=== PATIENT | female | born 1945 | race Caucasian/White ===

== ENCOUNTER → 2018-03-08 10:15 | Outpatient (CLI) | payer MEDICARE, SELFPAY ==
--- NOTE | 2018-03-08 10:18 | BI_ITS ---
MAMMOGRAPHY - BILATERAL SCREENING REASON FOR EXAM: Female, 72 years old. Routine annual screening examination. PERTINENT HISTORY: Personal history of breast cancer. Prior left lumpectomy and radiation therapy. Mother with breast cancer. TECHNIQUE: Digital bilateral breast angeline (3D mammographic acquisition) in the CC and MLO projections. 2-D mediolateral oblique (MLO) and craniocaudad (CC) views of both breasts were obtained. CAD: Full Field Digital Mammography with Computer Added Detection was performed. COMPARISON: Comparison is made with prior study dated March 07, 2017 and March 04, 2016. FINDINGS: Breast Composition: There are scattered areas of fibroglandular density. There are no dominant masses or suspicious calcifications. Stable changes compatible with prior lumpectomy in the deep upper lateral portion of the left breast. Stable small bilateral axillary lymph nodes. No other significant abnormalities are identified. There has been no significant change since the prior study. BI/SCREENING MAMM (CAD), BILAT IMPRESSION: Stable bilateral screening mammogram. Yearly follow-up mammogram recommended. (A) ASSESSMENT CATEGORY: BIRADS Category 2: Benign. A letter regarding these results will be sent to the patient by the facility within 30 days. Approximately 10% of breast cancers are not detected by mammography. A normal mammogram should not delay biopsy of a clinically suspicious abnormality. [id number] Electronically Signed: Chapito Zurita MD at 13:27 EST Tel [phone], Service support ,
== END ==
PROVIDERS: Family Provider Family Medicine; PCP Family Medicine; Referring Provider Internal Medicine Medical Oncology; Visit Provider Internal Medicine Medical Oncology
DX: Z12.31 Encounter for screening mammogram for malignant neoplasm of breast (principal); Z85.3 Personal history of malignant neoplasm of breast
CPT/HCPCS: 77063; 77067

== ENCOUNTER → 2018-08-29 10:18 | Outpatient (CLI) | payer MEDICARE, SELFPAY ==
[2018-03-15 13:20] VITALS: BMI 29.4
--- NOTE | 2018-08-29 10:29 | RAD_ITS ---
STUDY: X-RAY CHEST REASON FOR EXAM: Female, 72 years old. Rib pain TECHNIQUE: Frontal and lateral views of the chest. COMPARISON: None. FINDINGS: The lungs are clear and expanded. There is no demonstrated pleural abnormality. Normal size heart. Normal mediastinum and ashley. Normal visualized pulmonary arteries. There is atherosclerotic tortuosity of the aortic arch and descending thoracic aorta. There are diffuse degenerative changes of the visualized thoracic spine. Normal visualized ribs, clavicles, and shoulders. There is no demonstrated abnormality of the visualized soft tissue structures of the upper abdomen. RAD/Chest PA and Lateral IMPRESSION: No acute chest disease. Electronically Signed: Ki Bailey MD at 17:41 EDT , Service support ,
== END ==
PROVIDERS: Family Provider Family Medicine; PCP Family Medicine; Referring Provider Family Medicine; Visit Provider Family Medicine
DX: R07.81 Pleurodynia (principal)
CPT/HCPCS: 71046

== ENCOUNTER → 2019-01-05 13:43 | Outpatient (CLI) | payer MEDICARE, SELFPAY ==
[2018-03-15 13:20] VITALS: BMI 29.4
--- NOTE | 2019-01-05 13:47 | BI_ITS ---
MAMMOGRAPHY - UNILATERAL DIAGNOSTIC: LEFT BREAST REASON FOR EXAM: Female, 73 years old. Previous history of bilateral breast cancer in the superior lateral left breast. PERTINENT HISTORY: Previous breast cancer in the superior lateral left breast. TECHNIQUE: Digital examination. Mediolateral oblique (MLO) and craniocaudad (CC) views of the breast were obtained. CAD: Not performed COMPARISON: None. FINDINGS: Breast Composition: Scattered breast parenchyma There are no dominant masses. There is a dystrophic calcification with some minimal skin retraction noted involving the superior lateral aspect of the left breast probably due to the patient's prior lumpectomy and radiation therapy. This was noted previously on the prior study obtained on 03/08/2018 is unchanged. The patient describes a palpable density in the superior lateral left breast and a left breast ultrasound will be helpful for further evaluation. BI/DIAG MAMM W/CAD, UNILAT IMPRESSION: 1. Stable dystrophic calcifications are noted involving the superior lateral aspect the left breast due to the patient's prior lumpectomy. 2. A palpable density is noted in the superior lateral left breast and a left breast ultrasound will be performed for additional evaluation. ASSESSMENT CATEGORY: FINAL ASSESSMENT: BI-RAD CATEGORY 0 INCOMPLETE: (NEEDS ADDITIONAL IMAGINING EVALUATION) FOLLOW-UP RECOMMENDATION: Approximately 10% of breast cancers are not detected by mammography. A normal mammogram should not delay biopsy of a clinically suspicious abnormality. Electronically Signed: Aubrey Piter, at 16:38 EDT Tel , Service support ,
--- NOTE | 2019-01-05 13:47 | US_ITS ---
STUDY: ULTRASOUND BREAST - LEFT REASON FOR EXAM: Female, 73 years old. TECHNIQUE: Axial and longitudinal images of the LEFT breast were performed with a high resolution ultrasound transducer. COMPARISON: Recent mammogram obtained earlier on 01/05/2019 FINDINGS: LEFT Breast: There is a lesion in the superior lateral quadrant. The lesion measures 3.27 cm in size. Clock notation: 2 o'clock position. Distance from nipple: 12 cm. This lesion is biconvex and has clear fluid echogenicity and most likely represents a small seroma adjacent to the posterior wall of the left breast near the site of the previous lumpectomy. No other abnormal masses or lesions are seen. US/Breast Limited Unilateral IMPRESSION: A small seroma is noted adjacent to the superior lateral left chest wall. ASSESSMENT CATEGORY: FINAL ASSESSMENT: BI-RAD CATEGORY II (BENIGN FINDING) YEARLY MAMMOGRAPHY RECOMMENDED Electronically Signed: Aubrey Dumas, at 16:41 EDT Tel , Service support ,
== END ==
PROVIDERS: Family Provider Family Medicine; PCP Family Medicine; Referring Provider Family Medicine; Visit Provider Family Medicine
DX: N63.23 Unspecified lump in the left breast, lower outer quadrant (principal); Z85.3 Personal history of malignant neoplasm of breast
CPT/HCPCS: 76642; 77061; 77065; G0279

== ENCOUNTER → 2019-03-09 10:13 | Outpatient (CLI) | payer MEDICARE, SELFPAY ==
[2018-03-15 13:20] VITALS: BMI 29.4
--- NOTE | 2019-03-09 10:33 | BI_ITS ---
MAMMOGRAPHY - BILATERAL SCREENING REASON FOR EXAM: Female, 73 years old. Routine annual screening examination. PERTINENT HISTORY: Personal history of breast cancer. Prior left lumpectomy with radiation therapy. Mother with breast cancer. TECHNIQUE: Digital bilateral breast gaston (3D mammographic acquisition) in the CC and MLO projections. 2-D mediolateral oblique (MLO) and craniocaudad (CC) views of both breasts were obtained. CAD: Full Field Digital Mammography with Computer Added Detection was performed. COMPARISON: Comparison is made with prior study March 08, 2018 and March 07, 2017. FINDINGS: Breast Composition: There are scattered areas of fibroglandular density. There are no dominant masses or suspicious calcifications. The patient is status post lumpectomy with post surgical changes and deformity of the breast and in the upper outer quadrant of the left breast. This is unchanged. No other significant abnormalities are identified. There has been no significant change since the prior study. BI/SCREEN MAMM (CAD) W/[place] BILAT IMPRESSION: Stable bilateral screening mammogram. Yearly follow-up mammogram recommended. (A) ASSESSMENT CATEGORY: BIRADS Category 2: Benign. A letter regarding these results will be sent to the patient by the facility within 30 days. Approximately 10% of breast cancers are not detected by mammography. A normal mammogram should not delay biopsy of a clinically suspicious abnormality. [id number] Electronically Signed: Chapito Zurita, at 12:50 EST , Service support ,
== END ==
PROVIDERS: Family Provider Family Medicine; PCP Family Medicine; Referring Provider Internal Medicine Medical Oncology; Visit Provider Internal Medicine Medical Oncology
DX: Z12.31 Encounter for screening mammogram for malignant neoplasm of breast (principal); Z85.3 Personal history of malignant neoplasm of breast
CPT/HCPCS: 77063; 77067

== ENCOUNTER 2019-06-06 20:01 | Inpatient (IN) | payer MEDICARE, MEDICAID, SELFPAY ==
[2019-03-13 14:05] VITALS: BMI 30.1
[2019-06-06] VITALS (8 sets, daily range): BP systolic 149–181; BP diastolic 83–103; PULSE 72–99; RESP 14–19; TEMP 36.6–36.8; O2SAT 87–96; BMI 28.4
[2019-06-06] MEDS: 0.9% Normal Saline 1,000 ML 999 ML IV (20:28)
[2019-06-06] MEDS: MethylPREDNISolone 125 MG/2 ML Vial IV (20:29)
[2019-06-06 20:32] LABS: Absolute Lymphocyte Count 1.42 X10^3/uL (0.83-4.51); Absolute Neutrophil Count 5.2 X10^3/uL (2.0-7.7); Basophil# 0.02 X10^3/uL; Basophil% 0.3 % (0-1); Eosinophil# 0.13 X10^3/uL; Eosinophils% 1.7 % (0-5); Hematocrit 40.9 % (37-47); Hemoglobin 13.8 g/dL (12.0-15.0); Lymphocyte # 1.42 X10^3/ul (4.0); Lymphocyte % 18.4 % (19-41); Mean Corp Hgb Conc 33.7 g/dL (32-36); Mean Corpuscular Hgb 31.4 pg (27.0-32.0); Mean Platelet Vol. 9.6 fl (6.2-12.0); Monocyte# 0.97 X10^3/uL; Monocyte% 12.6 % (0-10); NRBC Flagged by Analyzer 0 % (0-5); Neutrophil # 5.15 X10^3/uL (2.7-7.7); Neutrophil % 66.6 % (47-70); Platelet Count 291 K/mm3 (150-450); RBC Distribution Width CV 13.2 % (11.6-14.6); RBC Distribution Width SD 45.5 fl (35.1-43.9); White Blood Count 7.7 K/mm3 (4.4-11.0)
[2019-06-06] MEDS: Ipratropium/Albuterol Sulfate 3 ML AMPUL.NEB INHALATION (20:45)
[2019-06-06 20:49] LABS: Anion Gap 7 (5-15); BUN 20 mg/dL (7-18); BUN/Creat Ratio 17.2 RATIO (10-20); Calcium,Total 8.9 mg/dL (8.5-10.1); Chloride 109 mmol/L (98-107); Creatinine, Serum 1.16 mg/dL (0.55-1.02); EST Glomerular Filtration Rate 48 mL/min (>60); Est Glom Filt Rate - Afr Amer 59 mL/min (>60); Glucose 105 mg/dL (74-106); Potassium 4.1 mmol/L (3.5-5.1); Sodium Level 142 mmol/L (136-145)
--- NOTE | 2019-06-06 21:00 | RAD_ITS ---
STUDY: X-RAY CHEST REASON FOR EXAM: Female, 73 years old. PT REPORTS FLU-LIKE SX X 3 WEEKS, TONIGHT WORSENED SOB. TECHNIQUE: Frontal and lateral views of the chest. COMPARISON: 08/29/2018 FINDINGS: The lungs are clear and expanded. There is no demonstrated pleural abnormality. Normal size heart. Normal mediastinum and ashley. Normal visualized pulmonary arteries. Normal visualized aortic arch and descending thoracic aorta. Normal visualized thoracic spine. Normal visualized ribs, clavicles, and shoulders. There is no demonstrated abnormality of the visualized soft tissue structures of the upper abdomen. RAD/Chest PA and Lateral IMPRESSION: Normal x-ray examination of the chest. Electronically Signed: Yung Irvin MD at 21:24 EST Tel , Service support ,
--- NOTE | 2019-06-06 22:52 | CT_ITS ---
STUDY: CTA CHEST REASON FOR EXAM: Female, 73 years old. HYPOXIA, FLU LIKE SX X 3 WEEKS, INCREASED SOB TODAY RADIATION DOSAGE (If Supplied By Facility): CTDIvol = ( 13.19 ) mGy, DLP = ( 496.48 ) mGycm TECHNIQUE: The examination was performed with the intravenous administration of IV 100 ML ISOVUE 300. Post-processing of the angiographic images was performed, with multiplanar reformation and 3D reconstruction. Individualized dose optimization techniques were used for this CT. COMPARISON: 09/21/2016 FINDINGS: Normal enhancement of the main pulmonary artery and right and left pulmonary arteries. Normal enhancement of the bilateral peripheral pulmonary arteries. There is no demonstrated pulmonary embolism. Normal thoracic aorta and visualized great vessels. There is no demonstrated aortic dissection. Normal heart and pericardium. Normal mediastinum. Normal hilar regions. Normal visualized trachea and bronchi. Pulmonary emphysema. Normal pleura. Normal chest wall structures. There are degenerative changes of thoracic spine. Normal visualized upper abdomen. CT/CTA Chest W/WO Contrast IMPRESSION: Normal CTA chest examination, without a demonstrated pulmonary embolism or aortic dissection. Electronically Signed: Yung Irvin MD at 23:39 EST Tel , Service support ,
[2019-06-07] VITALS (11 sets, daily range): BP systolic 115–147; BP diastolic 57–100; PULSE 70–104; RESP 16–20; TEMP 36.5–36.9; O2SAT 94–98; BMI 28.0; BMI 29.9
--- NOTE | 2019-06-07 00:08 | HP.PCM_ITS ---
Problem List (1) COPD exacerbation Status: Acute (2) Tobacco abuse Status: Chronic History of Present Illness Date of Admission: 06/07/19 Chief Complaint: PRODUCTIVE COUGH The patient is a 73 year old F with a significant history of hypertension; depression and tobacco abuse who presented to the emergency department with 3- week history of progressively worsening productive cough of yellow sputum. Associated with symptoms is shortness of breath; chest pain; wheezing; orthopnea; paroxysmal nocturnal dyspnea; chills; rigors; anorexia; rhinorrhea and postnasal drip. Patient treated several home with [id number] Sudafed and chicken broth without any real relief. At the emergency department on room air her oxygen saturation was 87% so she was put on supplemental nasal cannula. Chest CTA was remarkable for pulmonary emphysema. Past Medical History Past Medical History (Chronic Problems): Chronic Problems (Last Reviewed 06/07/19 @ 00:[address] Noel Sanchez MD) Tobacco abuse (Chronic) Osteopenia (Chronic) Personal history of malignant neoplasm of breast (Chronic) History of left breast cancer (Chronic) Osteoarthritis (Chronic) Medical History: Medical History (Last Reviewed 06/07/19 @ 00:[address] Noel Sanchez MD) Arthritis M19.90 Bladder incontinence R32 Cervical cancer Depression F32.9 GERD (gastroesophageal reflux disease) K21.9 Hyperlipidemia E78.5 IBS (irritable bowel syndrome) Skin cancer C44.90 Vitamin D deficiency E55.9 Hypertension I10 Allergies ibuprofen Adverse Reaction (Verified 06/06/19 20:01) Nausea/Vom/Diarrhea Home Medications: Ambulatory Orders Medication Instructions Recorded Citalopram [Celexa] 20 mg PO QHS 03/22/14 Lisinopril [Zestril] 10 mg PO DAILY 03/22/14 Vitamin D 125 unit PO DAILY 09/12/14 Gabapentin [Neurontin] 300 mg PO BIDCM 03/10/15 Ranitidine HCl [Zantac 75] 150 mg PO Q12H 03/10/15 Surgical History: Surgical History (Last Reviewed 06/07/19 @ 00:[address] Noel Sanchez MD) H/O: hysterectomy Z90.710 History of knee replacement Z96.659 History of lumpectomy Z98.890 S/P cholecystectomy Z90.49 Surgical History: total knee arthroplasty Lives: Roommate Smoking Status: Current every day smoker Tobacco Use: Cigarettes - *Family History Maternal Family History: Family History (Last Reviewed 06/07/19 @ 00:[address] Noel Sanchez MD) Father Emphysema Heart disease Mother Seizures Breast cancer Review of Systems Constitutional: Reports: Anorexia, Chills. Denies: Fever, Weight Change HEENT: Denies: Head Aches, Sinus Congestion, Sinus Drainage Cardiovascular: Reports: Chest Pain. Denies: Palpitations Respiratory: Reports: Cough, Shortness of Breath, Sputum production, Wheezing Gastrointestinal: Denies: Abdominal Pain, Nausea, Vomiting Genitourinary: Denies: Dysuria Musculoskeletal: Denies: Joint Pain, Joint Tenderness Skin: Denies: Rash, Wounds Neurological: Denies: Numbness, Tingling, Focal weakness Psychiatric: Denies: Anxiety, Depression, Homicidal Ideations, Suicidal Ideations Hematologic/ Lymphatic: Denies: Easy Bruising, Easy Bleeding VTE Information - Inpt Only VTE Present on Admission: No VTE Mechan Device Prophylaxis: None VTE Pharm Prophylaxis ordered?: Yes Patient Problems: Active and Suspected Problems (Last Reviewed 06/07/19 @ 00:[address] Noel Sanchez MD) COPD exacerbation (Acute) - Physical Exam Vitals/I&O's: Vital Signs Temp Pulse Resp BP Pulse Ox 97.8 F 99 16 157/103 H 95 06/06/19 23:58 06/06/19 23:58 06/06/19 23:58 06/06/19 23:58 06/06/19 23:58 Oxygen Flow Rate (L/min) 2 Oxygen Delivery Method Nasal Cannula Weight: 72.91 kg Body Mass Index (BMI) 28.4 Intake and Output for Last 24 Hours 06/05/19 06/06/19 06/07/19 23:59 23:59 23:59 Intake Total 1000 / 1000 Balance 1000 / 1000 General: Alert, Oriented x3, Cooperative HEENT: Atraumatic, PERRLA, EOMI, Normocephalic Neck: Supple, No JVD, Negative Carotid Bruits Lungs: Clear to auscultation, Normal air movement Cardiovascular: Regular rate, Normal S1, Normal S2, No murmurs Abdomen: Bowel Sounds Present, Soft, Non Tender Extremities: No edema, Capillary Refill Less than 3 Seconds Skin: No rashes, No breakdown Musculoskeletal: No Tenderness to Palpation of Joints or Extremities Neurological: Cranial nerves II-XII grossly intact Psych/Mental Status: Normal Affect, Appropriate Laboratory Results 06/06/19 20:20: WBC 7.7, RBC 4.40, Hgb 13.8, Hct 40.9, MCV 93.0, MCH 31.4, MCHC 33.7, RDW Std Deviation 45.5 H, RDW Coeff of Nahed 13.2, Plt Count 291, MPV 9.6, Immature Gran % (Auto) 0.400, Neut % (Auto) 66.6, Lymph % (Auto) 18.4 L, [place] % (Auto) 12.6 H, Eos % (Auto) 1.7, Baso % (Auto) 0.3, Absolute Neuts (auto) 5.2, Absolute Lymphs (auto) 1.42, Nucleated RBC % 0 06/06/19 20:20: Sodium 142, Potassium 4.1, Chloride 109 H, Carbon Dioxide 26.0, Anion Gap 7, BUN 20 H, Creatinine 1.16 H, Estim Creat Clear Calc 35.20, Est GFR (MDRD) Af Amer 59 L, Est GFR (MDRD) Non-Af 48 L, BUN/Creatinine Ratio 17.2, Glucose 105, Calcium 8.9 06/06/19 20:20: Troponin I < 0.015 Assessment/Plan All Active Problems (Last Reviewed 06/07/19 @ 00:[address] Noel Sanchez MD) COPD exacerbation (Acute) The patient is a 73 year old F with a significant history of hypertension; depression and tobacco abuse who presented to the emergency department with 3- week history of progressively worsening productive cough of yellow sputum; shortness of breath; chest pain; wheezing; orthopnea; paroxysmal nocturnal dyspnea; rhinorrhea and postnasal drip consistent with likely COPD exacerbation and viral syndrome. COPD exacerbation and viral syndrome Received Solu-Medrol emergency department. Continue patient on Solu-Medrol . Solu-Medrol was started at the emergency department; continued. She received breathing treatment at the emergency department. DuoNeb continued. PRN albuterol continued. Mucinex ordered. Flonase ordered. We will get rapid influenza screen. Hypertension On presentation blood pressure was not within goal Lisinopril continued PRN hydralazine ordered. Trend blood pressure and adjust blood pressure medication Neuropathy Gabapentin continued Depression Celexa continued GERD On H2 blockers; continued. Vitamin D deficiency Vitamin D continued Tobacco abuse Patient began smoking at the age of 13. She tried Chantix in the past with good results. However because she was gaining weight she resumed smoking Patient is refusing nicotine patch. Counseled. DVT prophylaxis Subcutaneous Lovenox Code Visit Inpatient E&M: 16477 Init Hosp L3
--- NOTE | 2019-06-07 01:32 | ED.DCSUM_ITS ---
- ER Visit Summary Date of Service: 06/07/19 Chief Complaint: Cough History of Present Illness: The patient is a [address] Pichardo. She reports she has a cough that began 2 weeks ago. Is productive yellow sputum without blood. She denies any fever. She has had chills. Patient reports that she has shortness of breath. Is moderate currently and severe at worst. It is increased with coughing or walking. Patient denies a history of COPD. However, she reports that she has smoked for the past 60 years. She is never used an inhaler. She is not on home O2. Review of systems is otherwise negative. Physical Examination: Vitals: 98.0, 181/84, 72, 14, 87% room air which is hypoxic. General: Well-nourished and well-developed. Head: Normocephalic atraumatic. Neck: Supple, no lymphadenopathy. No JVD. Nontender. Cardiovascular: Regular rate and rhythm. No murmurs. Respiratory: No respiratory distress. Mild wheezing bilaterally with decreased air movement. Abdominal: Soft, nontender, nondistended, normal bowel sounds. No guarding, rebound, or peritoneal signs. Back: Nontender. Extremities: Nontender, no edema. Skin: Normal color, no rash. Neurologic: Alert and oriented ?3. Cranial nerves II through XII are intact. Normal strength and sensation. Psych: Normal affect. Test Results: CBC shows lymphocytes of 18 monocytes of 13. Chem-7 shows a chloride of 109, BUN 20, creatinine 1.16. Clinical Impression(s) from Imaging Studies Chest X-Ray 06/06/19 21:00 IMPRESSION: Normal x-ray examination of the chest. Electronically Signed: Yung Irvin MD at 21:24 EST Tel , Service support , Chest CTA 06/06/19 22:52 IMPRESSION: Normal CTA chest examination, without a demonstrated pulmonary embolism or aortic dissection. Electronically Signed: Yung Irvin MD at 23:39 EST Tel , Service support , Emergency Department Course and Treatment: Patient was given albuterol Atrovent aerosols. She is given Solu-Medrol and Zithromax IV. She is hypoxic at rest. Pulse ox is in the mid 90s on 2 L nasal cannula. She will require admission. Treatment Plan: Patient was discussed with Dr. Sanchez. She will be admitted to the hospital for further evaluation and treatment. Disposition: Admitted in improved condition. Impression: 1. COPD exacerbation. 2. Hypoxia. This note was generated with [employer] dictation software. It may contain incorrect words, spelling, and punctuation that were not noted in review of the chart prior to signing ED Disposition - Plan for ED Patient: Disposition: Acute Care Hospital [facility]
[2019-06-07] MEDS: guaiFENesin 1,200 MG Tablet 1200 MG PO ×3 (03:22→21:10)
[2019-06-07] MEDS: Fluticasone 0.05% 1 SPRAY NASAL.SRY 2 SPRAY NASAL (03:24)
[2019-06-07 06:18] LABS: Absolute Lymphocyte Count 0.32 X10^3/uL (0.83-4.51); Absolute Neutrophil Count 4.2 X10^3/uL (2.0-7.7); Basophil# 0.01 X10^3/uL; Basophil% 0.2 % (0-1); Hematocrit 40.1 % (37-47); Hemoglobin 13.2 g/dL (12.0-15.0); Lymphocyte # 0.32 X10^3/ul (4.0); Mean Corp Hgb Conc 32.9 g/dL (32-36); Mean Corpuscular Hgb 30.6 pg (27.0-32.0); Mean Corpuscular Volume 92.8 fL (81-99); Mean Platelet Vol. 9.6 fl (6.2-12.0); Monocyte# 0.05 X10^3/uL; Monocyte% 1.1 % (0-10); NRBC Flagged by Analyzer 0 % (0-5); Neutrophil # 4.19 X10^3/uL (2.7-7.7); Neutrophil % 91.5 % (47-70); POSITIVE DIFFERENTIAL YES; Platelet Count 280 K/mm3 (150-450); RBC Distribution Width CV 13.2 % (11.6-14.6); RBC Distribution Width SD 45.2 fl (35.1-43.9); Red Blood Count 4.32 M/mm3 (4.2-5.4); White Blood Count 4.6 K/mm3 (4.4-11.0)
[2019-06-07 06:24] LABS: Differential Indicated SCAN CRITERIA MET
[2019-06-07 06:34] LABS: Anion Gap 7 (5-15); BUN 15 mg/dL (7-18); BUN/Creat Ratio 15.1 RATIO (10-20); Calcium,Total 8.5 mg/dL (8.5-10.1); Chloride 109 mmol/L (98-107); Creatinine, Serum 0.99 mg/dL (0.55-1.02); EST Glomerular Filtration Rate 58 mL/min (>60); Est Glom Filt Rate - Afr Amer 70 mL/min (>60); Estimated Creatinine Clearance 39.43 ml/min; Glucose 141 mg/dL (74-106); Potassium 3.8 mmol/L (3.5-5.1); Sodium Level 140 mmol/L (136-145)
[2019-06-07] MEDS: Ipratropium/Albuterol Sulfate 3 ML AMPUL.NEB INHALATION ×4 (07:13→18:40)
[2019-06-07] MEDS: Gabapentin 300 MG Capsule PO ×2 (09:06→18:12)
[2019-06-07] MEDS: Lisinopril 10 MG Tablet PO (09:06)
[2019-06-07] MEDS: Enoxaparin 40 MG/0.4 ML Syringe SC (09:06)
[2019-06-07] MEDS: Famotidine 20 MG Tablet PO ×2 (09:06→21:10)
--- NOTE | 2019-06-07 12:25 | CASEMGMT ---
RN CM YARN SPOOLER CM to room to meet with patient for initial transition planning/care coordination assessment. JARETT LIGHT introduced self and role at [facility]. Pt voices understanding and consents to assessment at this time. Pt resting in bed in no distress at this time. Pt is A/O at this time and answers all questions appropriately. Care providers, pharmacy, and demographics verified at this time. PCP: Dr Hicks Specialists: None Preferred Pharmacy: [facility] [place] Insurance: [employer]UST Prescription Benefit: Yes Living Will/HPOA: States does not have LW or HCPOA . Interested in more information and would like to talk with SW to complete paperwork. LNOK: 3 adult children. Son, Aden Silvestre, listed on demographics as next of kin. Asked pt if she would like additional people added but she declines at this time. Living Arrangements: Lives with a friend in ranch-style home w/basement. Stairs have rails on them and pt states she manages going up and down the stairs. Pt states she is independent w/ADL's. She and her friend share home mgmt tasks. Transportation: Pt states drives self and states no transportation concerns at this time. DME: States has the following DME: shower chair Pt states no need for further DME at this time. Does not have home O2. Given list of local DME companies in case she qualifies for Home O2 @ discharge. Pt states wishes to decide later on which DME company she would prefer. HHC/SNF: No history of either and denies needs. Pt wishes to return home and states has no concerns with going home at time of discharge. CM to follow for home oxygen needs and any further discharge planning/needs. Pt voices no further concerns/needs at this time. Advised pt to ask for CM if any further questions/concerns/needs arise. Voices understanding. PLAN: Home May need Ambulatory pulse ox testing completed prior to discharge SW consult for STEPHAN SOTOMAYOR RN, CM
--- NOTE | 2019-06-07 12:37 | PCM.HOSP.N ---
Hospitalist Note Patient seen and examined briefly today, she appears comfortable on nasal cannula oxygen, she has an expiratory wheezing over both lung conroy-this wheezing is not severe. Patient will remain on her current treatment and be reevaluated tomorrow, oxygen will be weaned if possible.
--- NOTE | 2019-06-07 12:55 | CASEMGMT ---
Social Work Met with pt to complete Advanced Directives. Pt hesitant to agree to complete, SWI gave pt option to complete or if pt just wanted more information on AD. Pt asked if SW could complete AD tomorrow, SW to revisit topic tomorrow 06/07. Mita Guillen, social work internal medicine nurse practitioner Rowena EMERSON [employer]IATOR [employer]TER
[2019-06-07] MEDS: 0.9% Saline Lock 10 ML Syringe IV ×2 (13:39→21:12)
[2019-06-07] MEDS: Citalopram 20 MG Tablet PO (21:10)
[2019-06-07] MEDS: MELATONIN 3 MG TABLET PO (21:15)
[2019-06-08 04:10] VITALS: BP 115/56; PULSE 77; RESP 19; TEMP 36.4; O2SAT 94
[2019-06-08] MEDS: 0.9% Saline Lock 10 ML Syringe IV (05:23)
[2019-06-08 07:28] VITALS: PULSE 73; RESP 16
[2019-06-08] MEDS: Ipratropium/Albuterol Sulfate 3 ML AMPUL.NEB INHALATION ×2 (07:28→11:11)
[2019-06-08] MEDS: guaiFENesin 1,200 MG Tablet 1200 MG PO (09:54)
[2019-06-08] MEDS: Famotidine 20 MG Tablet PO (09:54)
[2019-06-08] MEDS: Gabapentin 300 MG Capsule PO (09:54)
[2019-06-08] MEDS: Fluticasone 0.05% 1 SPRAY NASAL.SRY 2 SPRAY NASAL (09:55)
[2019-06-08] MEDS: Lisinopril 10 MG Tablet PO (09:55)
[2019-06-08 10:00] VITALS: O2SAT 94
[2019-06-08 10:10] VITALS: BP 124/71; PULSE 76; RESP 18; TEMP 36.7; O2SAT 94
[2019-06-08 10:55] VITALS: O2SAT 89; O2SAT 91
--- NOTE | 2019-06-08 10:55 | NURSING ---
Walking oxygen trial done. Spo2 91% on RA at rest and 89% while ambulating on RA. Dr. Pierce made aware via medidametricst. He will be coming up to talk to pt.
[2019-06-08 11:11] VITALS: PULSE 87; RESP 16
--- NOTE | 2019-06-08 11:34 | DCINST_ITS ---
- Discharge Diagnoses Current Active Problems: Current Active and Chronic Problems (Last Reviewed 06/07/19 @ 00:[address] Noel Sanchez MD) COPD exacerbation (Acute) You will use the following diet at home:: Regular Your food should be the consistency of: Regular Your liquids should be the consistency of: Regular/Thin Call your doctor if you observe: Fever of 101 or Higher, Shortness of breath, Dizziness, Fainting spells, Swelling in the ankles, Chest pain, Increased palpitations (irregular heartbeat) Allergies/Adverse Reactions: Allergies ibuprofen Adverse Reaction (Verified 06/06/19 20:01) Nausea/Vom/Diarrhea Medications to take at Discharge Citalopram [Celexa] 20 mg PO QHS 03/22/14 Lisinopril [Zestril] 10 mg PO DAILY 03/22/14 Vitamin D 125 unit PO DAILY 09/12/14 Gabapentin [Neurontin] 300 mg PO BIDCM 03/10/15 Ranitidine HCl [Zantac 75] 150 mg PO Q12H 03/10/15 Albuterol IH (ProAir) [Proair Hfa] 2 puff INHALATION Q4H PRN PRN #1 inhaler 06/08/19 Prednisone [Deltasone] 40 mg PO DAILY #14 tab 06/08/19 The following prescriptions were given: Prednisone [Deltasone] 40 mg PO DAILY #14 tab Transmission Status: Pending to [facility] Albuterol IH (ProAir) [Proair Hfa] 2 puff INHALATION Q4H PRN PRN #1 inhaler PRN Reason: Sob &/Or Wheezing Transmission Status: Pending to [facility] Primary Care Physician: Augusta Hicks DO [Primary Care Provider] - Please follow up with your Primary Care Physician in: 3-5 days Test Results: Test results from this visit will be discussed in further detail at your follow- up appointment, if applicable.
--- NOTE | 2019-06-08 11:50 | CASEMGMT ---
This RN CM to room to discuss discharge plan and pt states no need for any further therapy at this time. Pt states has been up independent in room and states no further concerns with going home at this time. Pt does not qualify for home oxygen at this time. Pt voices no further questions/concerns/needs at this time. Pt states ready for discharge and Desirae DENSON aware, voices understanding. SStaten JARETT CM
--- NOTE | 2019-06-08 13:48 | PCM.DC.SUM ---
Discharge Date and Diagnosis Date of Admission: 06/07/19 Date of Discharge: 06/08/19 - Secondary Discharge Diagnosis Chronic Problems (Last Reviewed 06/07/19 @ 00:[address] Noel Sanchez MD) Tobacco abuse (Chronic) Osteopenia (Chronic) Personal history of malignant neoplasm of breast (Chronic) History of left breast cancer (Chronic) Osteoarthritis (Chronic) Hospital Course and Treatment Imaging Results: CTA Chest: IMPRESSION: Normal CTA chest examination, without a demonstrated pulmonary embolism or aortic dissection. CXR: IMPRESSION: Normal x-ray examination of the chest. Consults: None Operations: None Procedures: None Summary of Care Provided: Per HPI: The patient is a 73 year old F with a significant history of hypertension; depression and tobacco abuse who presented to the emergency department with 3-week history of progressively worsening productive cough of yellow sputum. Associated with symptoms is shortness of breath; chest pain; wheezing; orthopnea; paroxysmal nocturnal dyspnea; chills; rigors; anorexia; rhinorrhea and postnasal drip. Patient treated several home with [id number] Sudafed and chicken broth without any real relief. At the emergency department on room air her oxygen saturation was 87% so she was put on supplemental nasal cannula. Chest CTA was remarkable for pulmonary emphysema. Hospital Course: 1. COPD exacerbation secondary to viral [id number] female with a history of mild COPD presented with shortness of breath as well as hypoxia at 87%. She was placed on nasal cannula for about 24 hours and was able to come off of it. She was started on Solu-Medrol as well as azithromycin and breathing treatments and she has done well. She was oxygenating in the mid 90s on room air and she had an ambulatory pulse ox and she only desaturated to 89%. I had a long discussion with her about the options of staying in the hospital 1 more day just to give her an extra day of improvement versus going home. She states that she understands the risks and would like to go home. I have reminded her that if she does get worse that she is to come back to the ER for further therapy. A CTA of her chest was done which did not show any pneumonia therefore her azithromycin was discontinued. She was sent home on 7 days of prednisone as well as an albuterol inhaler. 2. Her other medical diagnoses were evaluated and her home medications were continued where appropriate - Physical Exam Vitals/I&O's: Vital Signs Temp Pulse Resp BP Pulse Ox 98.0 F 87 16 124/71 H 91 06/08/19 10:10 06/08/19 11:11 06/08/19 11:11 06/08/19 10:10 06/08/19 10:55 Oxygen Flow Rate (L/min) 2 Oxygen Delivery Method Room Air Weight: 163 lb 12.855 oz Body Mass Index (BMI) 29.9 Intake and Output for Last 24 Hours 06/06/19 06/07/19 06/08/19 23:59 23:59 23:59 Intake Total 1000 / 1000 1230 / 1670 500 / 500 Balance 1000 / 1000 1230 / 1670 500 / 500 General: Alert, Oriented x3, Cooperative, No apparent distress HEENT: Atraumatic, PERRLA, EOMI, Normocephalic Oral: Moist Mucosa Neck: Supple, No JVD Lungs: Clear to auscultation, Normal air movement, No rhonchi, No wheeze, No rales, Diminished Cardiovascular: Regular rate, Regular Rhythm, Normal S1, Normal S2, No murmurs Abdomen: Soft, Non Tender, Non-Distended, No Hepato-splenomegaly Extremities: No edema, Capillary Refill Less than 3 Seconds Skin: No rashes, No breakdown Neurological: Neuro grossly intact, Sensory exam intact to light touch and pain Psych/Mental Status: Normal Affect, Appropriate Microbiology Past 72 Hours 06/07/19 03:35 Mucosa - Nasopharyngeal Influenza Types A,B Direct FA ([place]) - Final Call your doctor if you observe: Fever of 101 or Higher, Shortness of breath, Dizziness, Fainting spells, Swelling in the ankles, Chest pain, Increased palpitations (irregular heartbeat) Home Medications: Medications to take at Discharge Citalopram [Celexa] 20 mg PO QHS 03/22/14 Lisinopril [Zestril] 10 mg PO DAILY 03/22/14 Vitamin D 125 unit PO DAILY 09/12/14 Gabapentin [Neurontin] 300 mg PO BIDCM 03/10/15 Ranitidine HCl [Zantac 75] 150 mg PO Q12H 03/10/15 Albuterol IH (ProAir) [Proair Hfa] 2 puff INHALATION Q4H PRN PRN #1 inhaler 06/08/19 Prednisone [Deltasone] 40 mg PO DAILY #14 tab 06/08/19 Following Prescrptions Were Given to Patient: Prednisone [Deltasone] 40 mg PO DAILY #14 tab Transmission Status: Sent to [facility] Albuterol IH (ProAir) [Proair Hfa] 2 puff INHALATION Q4H PRN PRN #1 inhaler PRN Reason: Sob &/Or Wheezing Transmission Status: Sent to [facility] Primary Care Physician: Augusta Hicks DO [Primary Care Provider] - Please follow up with your Primary Care Physician in: 3-5 days Disposition: Home Minutes spent on discharge:: 35 Patient Condition:: Stable Medical Necessity - Tobacco Use Smoking Status: Current every day smoker Tobacco Use: Cigarettes Meaningful Use Info Meaningful Use Diagnoses (Choose all that apply): None applicable Inpatient E&M: 70883 Disch Hosp
== END 2019-06-08 11:59 | disposition home or self-care (01) | DRG 192 ==
LOC: ED 21:01 → PCU 06-07 00:35
PROVIDERS: Admitting Provider Hospitalist; Emergency Provider Emergency Medicine; PCP Family Medicine; Visit Provider Family Medicine
DX: J44.1 Chronic obstructive pulmonary disease with (acute) exacerbation (principal); B34.9 Viral infection, unspecified; R09.02 Hypoxemia; I10 Essential (primary) hypertension; M19.90 Unspecified osteoarthritis, unspecified site; R32 Unspecified urinary incontinence; E78.5 Hyperlipidemia, unspecified; K58.9 Irritable bowel syndrome, unspecified; G62.9 Polyneuropathy, unspecified; K21.9 Gastro-esophageal reflux disease without esophagitis; F32.9 Major depressive disorder, single episode, unspecified; F17.210 Nicotine dependence, cigarettes, uncomplicated; Z79.899 Other long term (current) drug therapy; Z85.3 Personal history of malignant neoplasm of breast; Z85.828 Personal history of other malignant neoplasm of skin; Z85.41 Personal history of malignant neoplasm of cervix uteri; Z92.3 Personal history of irradiation; Z96.659 Presence of unspecified artificial knee joint; Z90.710 Acquired absence of both cervix and uterus; Z90.49 Acquired absence of other specified parts of digestive tract
CPT/HCPCS: 36415; 71046; 71275; 80048; 84484; 85025; 87804; 94640; 97802; 99285; J7030; J7050; Q9967; A4216

== ENCOUNTER 2020-03-05 14:38 | Emergency (ER) | payer MEDICARE, MEDICAID, SELFPAY ==
[2019-06-07 01:06] VITALS: BMI 29.9
[2020-03-05 14:39] VITALS: BP 124/69; PULSE 91; RESP 17; TEMP 36.7; O2SAT 95; BMI 29.4
--- NOTE | 2020-03-05 15:01 | EKG12_ITS ---
Test Reason : Blood Pressure : / mmHG Vent. Rate : 072 BPM Atrial Rate : 072 BPM P-R Int : 156 ms QRS Dur : 118 ms QT Int : 424 ms P-R-T Axes : 044 -75 -03 degrees QTc Int : 464 ms Normal sinus rhythm Low voltage QRS Incomplete right bundle branch block Left anterior fascicular block Cannot rule out Inferior infarct (masked by fascicular block?) , age undetermined Possible Anterolateral infarct (cited on or before 18-MAR-2011) Abnormal ECG Confirmed by BRIAN ROOT, ANDER ([id number]), medical transcription editor KAIDEN FRANCIS ([id number]) on 03/07/2020 2:03:54 PM Referred By: [facility] Confirmed By:KANG TORRES MD
--- NOTE | 2020-03-05 15:07 | CT_ITS ---
STUDY: CT CERVICAL SPINE WITHOUT CONTRAST REASON FOR EXAM: Female, 74 years old. FELL THIS MORNING NOW IS HAVING DIZZINESS RADIATION DOSAGE (If Supplied By Facility): CTDIvol = ( 24.15 ) mGy, DLP = ( 523.29 ) mGycm TECHNIQUE: High resolution transaxial imaging was performed without contrast material. Sagittal and coronal images were reconstructed. Individualized dose optimization techniques were used for this CT. COMPARISON: None FINDINGS: Normal craniovertebral junction. There is hypertrophy of the transverse ligament of the atlas with mild posterior displacement of the superior and inferior longitudinal fibers of the cruciform ligament, producing minimal ventral thecal sac flattening, but without cervical cord impingement. There are mild degenerative changes in the anterior atlantoaxial articulation. Normal odontoid process. Normal cervical lordosis. Normal vertebral bodies and posterior osseous elements. C2-3: Normal endplates. Normal disc height and morphology. Normal central canal and intervertebral neuroforamina. C3-4: 2 mm retrolisthesis of C3 on C4 with a mild broad disc osteophyte complex produces mild spinal stenosis and mild bilateral neural foraminal stenosis. C4-5: 2 mm retrolisthesis of C4 on C5 with a mild broad disc osteophyte complex produces mild spinal stenosis and mild bilateral neural foraminal stenosis. C5-6: 2 mm retrolisthesis of C5 on C6 with a mild broad disc osteophyte complex produces mild spinal stenosis and mild bilateral neural foraminal stenosis. C6-7: Large peripherally calcified central disc extrusion (hard disc) produces severe spinal stenosis. No neural foraminal stenosis. C7-T1: Normal endplates. Normal disc height and morphology. Normal central canal and intervertebral neuroforamina. Normal visualized soft tissue structures. CT/Spine Cervical without Contras IMPRESSION: No acute fracture or subluxation. Electronically Signed: Mason Kumar MD at 16:18 EST Tel , Service support ,
--- NOTE | 2020-03-05 15:19 | ED.VISSUMM ---
- ER Visit Summary Date of Service: 03/05/20 Chief Complaint: Fall History of Present Illness: The patient is a 74 F presenting after fall. Patient states this happened this morning. She states she was walking her dog. She bent over and lost her balance and fell onto her right side. She does not believe she hit her head. She did not lose consciousness. She has a laceration to her right elbow. She complains of right elbow and right knee pain. She states she has been lightheaded with standing throughout the day. She denies vertigo. Denies syncope. Denies numbness or weakness. Denies headache. Denies chest pain or shortness of breath. Denies other complaints. Last tetanus is unknown. Physical Examination: Vitals are stable. Patient is afebrile. Alert no acute distress. HEENT exam is unremarkable. Neck is nontender Lungs are clear and equal bilaterally. Heart is regular rate and rhythm. Abdomen is soft nontender nondistended. Extremities 1.5 cm right elbow laceration with active full range of motion. Mild right anterior knee tenderness Skin is warm and dry. No focal neurologic deficit. Remainder of exam is unremarkable. Emergency Department Course and Treatment: Patient was given Tetanus IM. CT head shows no acute process. CT C-spine shows no fracture. Right hip x-ray, right knee x-ray showed no acute fracture. Right elbow x-ray shows soft tissue laceration, foreign body that is distal to the wound. EKG is sinus rhythm rate of 72 with no acute ischemic changes. CBC, chemistries unremarkable other than creatinine 1.4, similar to baseline. Troponin is negative. Orthostatics negative. She was given tetanus IM. Her dizziness has resolved. Laceration was repaired under sterile conditions. Anesthetized with lidocaine. Irrigated with saline. Wound was explored. 2, 4-0 simple sutures were placed. Patient tolerated this well. Advised wound care instructions. Advised to follow-up with her primary care physician. Advised return to the ED for worsening complaints. Disposition: Discharge home Impression: Right elbow laceration, right elbow contusion, right knee contusion, status post fall, laceration repair This note was generated with [employer] original [employer] dictation software. It may contain incorrect words, spelling, and punctuation that were not noted in review of the chart prior to signing ED Disposition - Plan for ED Patient: Referrals: Augusta Hicks DO [Primary Care Provider] -
[2020-03-05 15:30] LABS: Absolute Lymphocyte Count 1.36 X10^3/uL (0.83-4.51); Absolute Neutrophil Count 7.3 X10^3/uL (2.0-7.7); Basophil# 0.03 X10^3/uL; Basophil% 0.3 % (0-1); Eosinophil# 0.03 X10^3/uL; Eosinophils% 0.3 % (0-5); Hematocrit 44.7 % (37-47); Lymphocyte # 1.36 X10^3/ul (4.0); Lymphocyte % 14.3 % (19-41); Mean Corp Hgb Conc 31.3 g/dL (32-36); Mean Corpuscular Hgb 31.5 pg (27.0-32.0); Mean Corpuscular Volume 100.4 fL (81-99); Mean Platelet Vol. 9.6 fl (6.2-12.0); Monocyte# 0.77 X10^3/uL; Monocyte% 8.1 % (0-10); NRBC Flagged by Analyzer 0 % (0-5); Neutrophil % 76.8 % (47-70); Platelet Count 254 K/mm3 (150-450); RBC Distribution Width CV 13.2 % (11.6-14.6); RBC Distribution Width SD 49.8 fl (35.1-43.9); Red Blood Count 4.45 M/mm3 (4.2-5.4); White Blood Count 9.5 K/mm3 (4.4-11.0)
--- NOTE | 2020-03-05 15:40 | RAD_ITS ---
STUDY: X-RAY - RIGHT ELBOW REASON FOR EXAM: Female, 74 years old. PT REPORTS HAVING A FALL EARLY THIS MORNING. DENIES HEAD INJURY, C/O LAC TO RIGHT ELBOW, RIGHT ELBOW PAIN, RIGHT KNEE/ LEG PAIN, AND DIZZINESS SINCE THE FALL TECHNIQUE: 3 view(s) of the elbow. COMPARISON: None. FINDINGS: Normal visualized humerus, radius and ulna. Normal radiocapitellar and ulnotrochlear articulations. Soft tissue injury/laceration. There is a 4.2 mm rounded radiopacity in the soft tissues overlying the proximal shaft of the ulna. This most likely represents a radiopaque foreign body. RAD/Elbow min 3 Views IMPRESSION: Soft tissue laceration/injury with small radiopaque foreign body as described. Electronically Signed: Chapito Zurita, at 16:00 EST , Service support ,
--- NOTE | 2020-03-05 15:40 | RAD_ITS ---
STUDY: X-RAY - RIGHT KNEE REASON FOR EXAM: Female, 74 years old. FALL THIS AM; PAIN IN RT KNEE TECHNIQUE: 4 view(s) of the knee. COMPARISON: None. FINDINGS: Normal visualized distal femur. Normal visualized proximal tibia and fibula. Normal proximal tibiofibular articulation. There is moderate degenerative arthrosis of the medial femorotibial compartment with moderate joint space narrowing. There is moderate degenerative arthrosis of the lateral femorotibial compartment with moderate joint space narrowing. There is mild degenerative arthrosis of the patellofemoral articulation. There is a soft tissue prominence in the suprapatellar region suggesting a small volume joint effusion. The soft tissue structures are unremarkable. RAD/Knee 4 or More Views IMPRESSION: 1. No acute fracture or dislocation. 2. Moderate arthrosis with a small joint effusion Electronically Signed: Mason Kumar MD at 15:59 EST Tel , Service support ,
--- NOTE | 2020-03-05 15:40 | RAD_ITS ---
STUDY: X-RAY - PELVIS AND RIGHT HIP REASON FOR EXAM: Female, 74 years old. FALL THIS AM; PAIN IN RT LEG TECHNIQUE: 3 views of the pelvis and hip. COMPARISON: None. FINDINGS: There is a non-specific bowel gas pattern. Normal visualized soft tissue structures. Normal bilateral iliac wings, sacroiliac joints and visualized sacrum. Normal bilateral superior and inferior pubic rami. There are degenerative changes of the pubic symphysis with articular narrowing and sclerosis. Normal bilateral ischial tuberosities. Normal visualized femoral head. Normal acetabulum. There is moderate articular joint space narrowing of the hip. Calcific bursitis overlying the right greater trochanter. RAD/HIP, UNI W/ Pelvis 2-3 Views IMPRESSION: Degenerative changes. Calcific bursitis overlying the right greater trochanter. Electronically Signed: Chapito Zurita, at 16:00 EST , Service support ,
[2020-03-05 15:48] LABS: Anion Gap 4 (5-15); BUN 24 mg/dL (7-18); BUN/Creat Ratio 17.1 RATIO (10-20); Calcium,Total 9.1 mg/dL (8.5-10.1); Chloride 110 mmol/L (98-107); EST Glomerular Filtration Rate 39 mL/min (>60); Est Glom Filt Rate - Afr Amer 47 mL/min (>60); Estimated Creatinine Clearance 28.72 ml/min; Glucose 99 mg/dL (74-106); Potassium 4.3 mmol/L (3.5-5.1); Sodium Level 143 mmol/L (136-145)
--- NOTE | 2020-03-05 15:53 | CT_ITS ---
STUDY: CT BRAIN WITHOUT CONTRAST REASON FOR EXAM: Female, 74 years old. FELL THIS MORNING NOW IS HAVING DIZZINESS RADIATION DOSAGE (If Supplied By Facility): CTDIvol = ( 44.99 ) mGy, DLP = ( 779.24 ) mGycm TECHNIQUE: Transaxial CT imaging of the brain was performed without administration of intravenous contrast material. Individualized dose optimization techniques were used for this CT. COMPARISON: 03/18/2011 FINDINGS: Normal soft tissue structures. Normal calvarium. There is mild cerebral atrophy with widening of the extra-axial spaces and ventricular dilatation. There are areas of decreased attenuation within the white matter tracts of the supratentorial brain, consistent with microvascular disease changes. Normal basal ganglia and thalami. Normal brainstem. Normal cerebellum. There is no intracranial hemorrhage. There are no findings of an acute ischemic infarction. Normal visualized paranasal sinuses. CT/Brain/Head without Contrast IMPRESSION: Chronic involutional changes of the brain. Electronically Signed: Mason Kumar MD at 16:15 EST Tel , Service support ,
[2020-03-05] MEDS: Lidocaine 1% (20 ml mdv) 20 ML Vial INFILT (16:13)
[2020-03-05] MEDS: 0.9% Normal Saline 1,000 ML 999 ML IV (16:13)
[2020-03-05] MEDS: Diphth,Pertuss(Acell),Tet Vac 0.5 ML Vial IM (16:13)
--- NOTE | 2020-03-05 16:26 | RAD_ITS ---
STUDY: X-RAY - RIGHT ELBOW REASON FOR EXAM: Female, 74 years old. One lateral view per ER doctor to demonstrate location of foreign body in relation to olecranon process. TECHNIQUE: 1 view(s) of the elbow. COMPARISON: 03/05/2020 at 1548 FINDINGS: Normal visualized humerus, radius and ulna. Normal radiocapitellar and ulnotrochlear articulations. Subcutaneous emphysema posteriorly consistent with a known laceration. There are 2 small radiopaque foreign bodies posteriorly presumably within the laceration with a 4 mm body located 6.2 cm distal to the olecranon and a tiny body located 2.0 cm distal to the previously described body. RAD/Elbow 2 Views IMPRESSION: Suspect posterior laceration with 2 small radiopaque foreign bodies as described above. Electronically Signed: Mason Kumar MD at 16:52 EST Tel , Service support ,
[2020-03-05 17:52] VITALS: BP 133/82; BP 157/101; PULSE 67; PULSE 71; PULSE 73
--- NOTE | 2020-03-05 18:09 | ED.DEP ---
ED Disposition - Plan for ED Patient: Instructions: ED Mechanical Fall Referrals: Augusta Hicks DO [Primary Care Provider] -
== END 2020-03-05 18:20 | disposition home or self-care (01) ==
PROVIDERS: Emergency Provider Emergency Medicine; PCP Family Medicine
DX: S51.011A Laceration without foreign body of right elbow, initial encounter (principal); S80.01XA Contusion of right knee, initial encounter; W18.30XA Fall on same level, unspecified, initial encounter; Y93.K1 Activity, walking an animal; Y92.9 Unspecified place or not applicable; Y99.9 Unspecified external cause status; Z23 Encounter for immunization; Z79.899 Other long term (current) drug therapy
CPT/HCPCS: 12001; 70450; 72125; 73070; 73080; 73502; 73564; 80048; 84484; 85025; 90715; 93005; 99285; J7030; A4216

== ENCOUNTER → 2020-04-02 15:43 | Outpatient (CLI) | payer MEDICARE, MEDICAID, SELFPAY ==
[2019-06-07 01:06] VITALS: BMI 29.9
[2020-03-05 14:39] VITALS: BMI 29.4
--- NOTE | 2020-04-02 15:45 | BI_ITS ---
MAMMOGRAPHY - BILATERAL SCREENING REASON FOR EXAM: Female, 74 years old. Routine annual screening examination. PERTINENT HISTORY: Hemodialysis catheter TECHNIQUE: Digital bilateral breast gaston (3D mammographic acquisition) in the CC and MLO projections. 2-D mediolateral oblique (MLO) and craniocaudad (CC) views of both breasts were obtained. CAD: Full Field Digital Mammography with Computer Added Detection was performed. COMPARISON: 03/09/2019 FINDINGS: Breast Composition: There are scattered areas of fibroglandular density. There are no dominant masses or suspicious calcifications stable post lumpectomy with post surgical changes and deformity in the upper outer quadrant of the left breast. No other significant abnormalities are identified. BI/SCREEN MAMM (CAD) W/GASTON BILAT IMPRESSION: Stable bilateral screening mammogram. Yearly follow-up mammogram recommended. (A) ASSESSMENT CATEGORY: BIRADS Category 2: Benign. A letter regarding these results will be sent to the patient by the facility within 30 days. Approximately 10% of breast cancers are not detected by mammography. A normal mammogram should not delay biopsy of a clinically suspicious abnormality. [id number] Electronically Signed: Remington Merritt, at 7:58 EST Tel , Service support ,
== END ==
PROVIDERS: PCP Family Medicine; Referring Provider Internal Medicine Medical Oncology; Visit Provider Internal Medicine Medical Oncology
DX: Z12.31 Encounter for screening mammogram for malignant neoplasm of breast (principal); Z85.3 Personal history of malignant neoplasm of breast
CPT/HCPCS: 77063; 77067

== ENCOUNTER → 2020-12-12 | Outpatient (CLI) | payer MEDICARE, MEDICAID, SELFPAY | END | disposition home or self-care (01) | LOC: LABSPEC 08:54 | PROVIDERS: PCP Family Medicine; Referring Provider Family Medicine; Visit Provider Family Medicine | DX: Z20.828 Contact with and (suspected) exposure to other viral communicable diseases (principal) | CPT/HCPCS: 87635; U0005; U0003 ==

== ENCOUNTER → 2020-12-29 | Outpatient (CLI) | payer MEDICARE, MEDICAID, SELFPAY | END | disposition home or self-care (01) | LOC: LABSPEC 12-30 09:30 | PROVIDERS: PCP Family Medicine; Referring Provider Family Medicine; Visit Provider Family Medicine | DX: Z20.822 Contact with and (suspected) exposure to COVID-19 (principal) | CPT/HCPCS: 87635; U0005; U0003 ==

== ENCOUNTER → 2021-01-19 06:01 | Outpatient (CLI) | payer MEDICARE, MEDICAID, SELFPAY | PROVIDERS: PCP Family Medicine; Referring Provider Family Medicine; Visit Provider Family Medicine | DX: R07.9 Chest pain, unspecified (principal); R06.00 Dyspnea, unspecified | CPT/HCPCS: 78452; 93017; A9500; A4216; J2785 ==

== ENCOUNTER 2021-02-02 06:49 | Day surgery (SDC) | payer MEDICARE, MEDICAID, SELFPAY ==
[2021-02-02] VITALS (8 sets, daily range): BP systolic 95–144; BP diastolic 51–92; PULSE 69–89; RESP 16–18; TEMP 36.4–36.8; O2SAT 94–97; BMI 28.5
--- NOTE | 2021-02-02 | GASB_PTH ---
PATIENT: ERINN EVERETT LOC: [facility] U#:[id number] AGE/SX: 75/F ROOM: RE02/02/[address]: Dr. Maya Frausto MD : [id number] BED: DIS: 02/02/2021 SPEC #: [id number] RECD: 02/02/21 11:43 STATUS: TRICIA DANYELL #: [id number] YAS: 02/02/21 00:[address]: Maya Frausto DEPT: SURGICAL PATHOLOGY RECD BY: Max Cabello ENTERED: 02/02/21 11:44 SP TYPE: Gastric Bx CHRISTIANO DR: Dr. Augusta Hicks DO Tissues: A - Gastric mucous membrane B - Gastric mucous membrane C - COLON BIOPSY Procedures: Special Stain Group II Surgery Specimen Level IV Alcian Blue/PAS (control) HEADER OPERATION: Colonoscopy, EGD ([facility] [place]) PRE-OP DIAGNOSIS: Nausea, vomiting, diarrhea TISSUE SUBMITTED: A ? Antrum for H. pylori and path, B ? GE junction biopsy, C ? Random colonic biopsy MICROSCOPIC DIAGNOSIS A. Antrum, biopsy: Moderate to marked chronic active gastritis. Focal intestinal metaplasia (goblet cell metaplasia). See comment. B. GE junction, biopsy: A fragment of gastroesophageal mucosa with moderate chronic inflammation. Intestinal metaplasia (goblet cell metaplasia) not identified. See comment. C. Colon, random biopsy: Fragments of colonic mucosa, no pathologic diagnosis. SJ:maco 02/03/2021 COMMENT A. The results of immunohistochemistry for Helicobacter pylori will be reported separately ([id number]). Alcian blue/PAS stain with matched control is used in the evaluation of the specimen. B. Alcian blue/PAS stain with matched control is used in the evaluation of the specimen. MICROSCOPIC DESCRIPTION Slides are reviewed. GROSS DESCRIPTION A - Received in fixative is one container labeled with the patient's name and designated antrum. The specimen consists of one irregular fragment of light daugherty soft tissue that measures 0.3 x 0.3 x 0.1 cm. The specimen is totally submitted in one cassette. B - Received in fixative is one container labeled with the patient's name and designated GE junction biopsy. The specimen consists of one irregular fragment of light daugherty soft tissue that measures 0.4 x 0.3 x 0.1 cm. The specimen is totally submitted in one cassette. C - Received in fixative is one container labeled with the patient's name and designated random colonic biopsy. The specimen consists of multiple irregular fragments of light daugherty soft tissue that in aggregate measure 0.6 x 0.4 x 0.1 cm. The specimen is totally submitted in one cassette. / JARRETT:maco 02/02/21 TC:2 CPT: 59299 x3, 54371 x2
--- NOTE | 2021-02-02 07:18 | H&P.OPEN ---
HPI - General HPI Narrative ERINN EVERETT, is a 75 F who presents EGD and colonoscopy due to nausea vomiting and diarrhea. Patient states she has had these symptoms for about a year. Patient states her last colonoscopy was likely about 30 years ago or greater. Patient states she has bowel movements multiple times a day denies any blood?patient does take Lomotil multiple times a day. Patient denies any family history of colon cancer. Patient is never had an EGD previously. Patient states she is able to drink water without issue. Patient denies any recent antibiotics. Patient has not gotten any stool studies as she thought it be quite messy to obtain. Patient was previously seen in the office in late December since then patient states she is only had vomiting once so that is better however the diarrhea is about the same. [facility] Medical History (Updated 01/29/21 @ 11:41 by Teresita Leach) Arthritis Bladder incontinence Cervical cancer Chronic cough COPD (chronic obstructive pulmonary disease) COPD exacerbation Depression Gastric reflux GERD (gastroesophageal reflux disease) History of left breast cancer History of stress test Hyperlipidemia IBS (irritable bowel syndrome) Leg cramps Osteoarthritis Osteopenia Personal history of malignant neoplasm of breast Shortness of breath on exertion Skin cancer Smoker Tobacco abuse Vitamin D deficiency Wears dentures Home Medications citalopram 20 mg PO QHS 03/22/14 [History Last Taken 06/06/19] albuterol sulfate 2 Q4H PRN PRN 01/29/21 [History Last Taken Unknown] cholecalciferol (vitamin D3) [Vitamin D3] 125 mcg PO QHS 01/29/21 [History Last Taken Unknown] famotidine 40 mg PO DAILY 01/29/21 [History Last Taken Unknown] Allergy/AdvReac Type Severity Reaction Status Date / Time ibuprofen AdvReac Nausea/Vom/ Verified 02/02/21 07:10 Diarrhea Family History Father Emphysema Heart disease Mother Seizures Breast cancer Surgical History (Updated 01/29/21 @ 11:29 by Teresita Leach) H/O: hysterectomy History of colonoscopy History of knee replacement History of lumpectomy S/P cholecystectomy Social History Smoking Status: Current every day smoker tobacco type: cigarettes Past Medical/Surgical History Planned Operation Planned Operative Procedure/s: EGD, colonoscopy S.O.S: No Previous Hospitalizations/Surgeries HX Hospitalizations: No HX of Surgeries: HYSTERECTOMY, NASAL SURGERY, MICHELET, TUBAL, 3 LT KNEE SURGERIES, Any Problems With Anesthesia: Yes (BP DROPS) You/Your Family Experience Fever (Hyperthermia) With Anes: No Cholinesterase deficiency: No Cardiovascular Hx Chest Pain within Last 2 months: No Hx of Irregular Heartbeat and/or Afib: No Hx Heart Attack: No Hx Congestive Heart Failure: No Hx Rheumatic Fever: No Hx Hypertension: Yes Hx Internal Defibrillator: No Hx Pacemaker: No Hx Cardiac Catheterization: No Hx Cardiac Surgery/Stents/Etc.: No Hx Stress Test: Yes (2004-[facility]) Hx Pain in Legs when Walking/Leg Cramps: No Respiratory Chronic Cough: No HX of Shortness of Breath: No Hoarseness: No Hx Chronic Obstructive Pulmonary Disease (COPD): Yes Hx Asthma: No Hx Emphysema: No Hx Sleep Apnea: No CPAP: No BIPAP: No Hx Respiratory Tract Infection/Cold (presently): No Do You Snore Loudly (louder than talking or can be heard): No Do You Often Feel Tired/ Fatigued/ Sleepy Dring Daytime?: No Has Anyone Observed You Stop Breathing During Sleep?: No Result (for STOP score): Negative Hx Smoking: Yes (1/2PPD) Smoking Status: Current every day smoker Gastrointestinal Hx Gastroesophageal Reflux: Yes Controlled With Meds: Yes Hx Gastrointestinal Disorders: Yes (HYPERACTIVE BOWEL) Hx Gastrointestinal Bleed: No Hx Ulcer: No Hx Hiatal Hernia: No Difficulty Chewing/Swallowing: No Special diet followed at home: No Hx Unplanned Weight Loss of 20#: No HX Unplanned Weight Gain of 20#: No Neurological Hx Seizures: No HX Syncope/Blackout Spells/Unconsciousness: No Hx Transient Ischemic Attacks (TIA): No Hx Multiple Sclerosis: No Hx Parkinson's Disease: No Hx Head/Neck Injury: No Hx Headaches: No Hx Back Injury/Pain: No Recent Onset of Speech Difficulty: No Restless Legs: No Does patient have nerve stimulator: No Blood Disorder Hx Leukemia: No Bleeding Tendencies: No Hx Deep Vein Thrombosis: No Hx High Cholesterol: No Blood Transmitted Disease: No Hx Hepatitis: No Hx Cirrhosis: No Hx Anemia: No Hx Blood Disorders: No Reproduction : No Is Patient Lactating: No Hx Hysterectomy: Yes Hx Tubal Ligation: Yes Are You Post Menopause: Yes Genitourinary Hx Renal Disease: No Hx Dialysis: No Musculoskeletal Hx Arthritis: Yes Hx Rheumatoid Arthritis: No Hx Gout: No Recent Onset of an Orthopedic Problem: No Endocrine Hx Diabetes: No Thyroid Disease: No Hx Steroid Therapy: No Psycho/Social Hx Substance Use: No Hx Alcohol Use: No Hx Anxiety: Yes Hx Depression: Yes Mental Illness: No Hx Dementia: No Miscellaneous Hx Cancer: Yes (SKIN, CERVICAL,BREAST L) Recent Exposure to Contagious Disease: No Hx of C-Diff: No Any Loose Teeth: No Allergies ibuprofen Adverse Reaction (Verified 02/02/21 07:10) Nausea/Vom/Diarrhea Discharge Is Pt Admitted From a Half-Way, or a Long Term: No Who Could Help: roommate After D/C, Where Do you Plan to Go: Return Home From the PAT History Number of Risk Factors: 5 Physical Exam Const alert, oriented x3 and no apparent distress HEENT normocephalic and head/scalp atraumatic Resp normal respiratory effort Cardio regular rate GI soft to palpation and non-tender; Negative for non-distended Palpation: Negative for guarding Extremity no clubbing, cyanosis or edema Neuro CN's II-XII intact bilaterally Psych mental status grossly normal Assessment & Plan Assessment/Plan (1) Nausea vomiting and diarrhea: Procedure Criteria Type of Procedure Procedure Type: Elective Elective Risks - COVID COVID Risk Discussion: The surgeon/proceduralist and patient have discussed in detail the risk of exposure to and/or potential harm posed by the COVID-19 virus with having a surgery/procedure at this time versus the risk of delaying the surgery/procedure. It is not possible to know either the risk of delaying the surgery or procedure or chance of getting an infection with perfect accuracy, but a joint decision was made between the patient and the surgeon/proceduralist to proceed at this time with the scheduled surgery/procedure as indicated on the consent form. Surgery Risks - Colonoscopy Risks Include but are not Limited To: Risks include but are not limited to: Bleeding, perforation requiring further surgery, inability to complete colonoscopy requiring barium enema. Patient had no further questions this time.
[2021-02-02] MEDS: Lactated Ringers 1,000 ML 100 ML IV (07:31)
[2021-02-02] MEDS: Ipratropium/Albuterol Sulfate 3 ML AMPUL.NEB INHALATION (08:05)
--- NOTE | 2021-02-02 08:15 | IMM_PTH ---
PATIENT: ERINN EVERETT LOC: [facility] U#:[id number] AGE/SX: 75/F ROOM: RE02/02/[address]: Dr. Maya Frausto MD : 1945 BED: DIS: 02/02/2021 SPEC #: [id number] RECD: 02/02/21 12:57 STATUS: TRICIA RELaura #: [id number] YAS: 02/02/21 08:[address]: Maya Frausto DEPT: IMMUNOHISTOCHEMISTRY RECD BY: Nancy Figueroa ENTERED: 02/02/21 12:58 SP TYPE: IMMUNO OTHR DR: Dr. Augusta Hicks, DO Tissues: A - Stomach, NOS Procedures: H Pylori (initial) PHYSICIAN & INSTITUTION [place] [id number] SPECIMEN INFORMATION: Tissue Source: A ? Antrum biopsy Clinical Info: Nausea, vomiting and diarrhea Specimen Number: [id number] CPT code: 45037 METHODOLOGY: Deparaffinized sections of prefer/formalin-fixed tissue or PAP/DQ stained slides are incubated with monoclonal/polyclonal antibodies/oligonucleotide probes. Localization is made via biotin free immunoperoxidase method. Appropriate controls are performed and reacted as expected. Results on target cell population are indicated in the following table: RESULTS: ANTIBODY / CLONE RESULT Block A H Pylori (polyclonal) positive These tests were developed and their performance characteristics determined by [facility]. They may not have been cleared or approved by the U.S. Food and Drug Administration. The FDA has determined that such clearance or approval is not necessary. INTERPRETATION: A. Antrum, biopsy: Positive for numerous Helicobacter pylori organisms. SJ:maco 02/03/2021
--- NOTE | 2021-02-02 08:41 | OP.EGD_ITS ---
Patient Name: Mariella Silvestre Procedure Date: 02/02/2021 8:01 AM Date of : 1945 Age: 75 Procedure: Upper GI endoscopy Indications: Nausea with vomiting Providers: Maya Frausto MD Referring MD: Maya Frausto MD Medicines: Monitored Anesthesia Care Patient Profile: This is a 75 year old female. Complications: No immediate complications. Procedure: Pre-Anesthesia Assessment: - Prior to the procedure, a History and Physical was performed, and patient medications and allergies were reviewed. The patient's tolerance of previous anesthesia was also reviewed. The risks and benefits of the procedure and the sedation options and risks were discussed with the patient. All questions were answered, and informed consent was obtained. Prior Anticoagulants: The patient has taken no previous anticoagulant or antiplatelet agents. ASA Grade Assessment: Per anesthesia. After reviewing the risks and benefits, the patient was deemed in satisfactory condition to undergo the procedure. After obtaining informed consent, the endoscope was passed under direct vision. Throughout the procedure, the patient's blood pressure, pulse, and oxygen saturations were monitored continuously. The Endoscope was introduced through the mouth, and advanced to the second part of duodenum. The upper GI endoscopy was accomplished without difficulty. The patient tolerated the procedure well. Scope In: 8:10:58 AM Scope Out: 8:15:51 AM Total Procedure Duration Time 0 hours 4 minutes 53 seconds Findings: The Z-line was variable and was found 35 cm from the incisors. Biopsies were taken with a cold forceps for histology. The examined duodenum was normal. Moderate inflammation characterized by erythema was found in the gastric antrum. Biopsies were taken with a cold forceps for histology. Biopsies were taken with a cold forceps for Helicobacter pylori testing using a rapid urease test. Biopsies were taken with a cold forceps for Helicobacter pylori cultures. H. pylori rapid was positive. A small hiatal hernia was present. Impression: - Z-line variable, 35 cm from the incisors. Biopsied. - Normal examined duodenum. - Gastritis. Biopsied. - Small hiatal hernia. Recommendation: - Discharge patient to home. - Resume previous diet. - Continue present medications. - Use Protonix (pantoprazole) 40 mg PO daily. - Will also call in flagyl, tetracycline, bismuth to pharmacy for + H.pylori treatment x 14 days. - Return to my office in 2 weeks-call for appt. Procedure Code(s): --- Professional --- 19953, Esophagogastroduodenoscopy, flexible, transoral; with biopsy, single or multiple Diagnosis Code(s): --- Professional --- K22.8, Other specified diseases of esophagus K29.70, Gastritis, unspecified, without bleeding K44.9, Diaphragmatic hernia without obstruction or gangrene R11.2, Nausea with vomiting, unspecified CPT copyright 2017 [employer]. All rights reserved. The codes documented in this report are preliminary and upon death surveys coder review may be revised to meet current compliance requirements. MD Maya Wallace MD 02/02/2021 8:41:32 AM This report has been signed electronically. Number of Addenda: 0 Note Initiated On: 02/02/2021 8:01 AM
--- NOTE | 2021-02-02 08:42 | OP.CCLET_ITS ---
02/02/2021 Augusta Hicks [address] [place] [address] Re : Upper GI endoscopy procedure for Mariella Silvestre Dear Dr. Hicks This procedure was performed on Tuesday, February 02, 2021. My impressions and recommendations are as follows: Impressions : - Z-line variable, 35 cm from the incisors. Biopsied. - Normal examined duodenum. - Gastritis. Biopsied. - Small hiatal hernia. Recommendations : - Discharge patient to home. - Resume previous diet. - Continue present medications. - Use Protonix (pantoprazole) 40 mg PO daily. - Will also call in flagyl, tetracycline, bismuth to pharmacy for + H.pylori treatment x 14 days. - Return to my office in 2 weeks-call for appt. My findings are described in the full procedure note, which is enclosed. If I can be of further assistance, please feel free to contact me at Doctor phone number(s): , Work: . Sincerely, MD Maya Wallace MD 02/02/2021 8:41:32 AM This report has been signed electronically.
--- NOTE | 2021-02-02 08:47 | OP.CCLET_ITS ---
02/02/2021 Augusta Hicks [address] [place] [address] Re : Colonoscopy procedure for Mariella Silvestre Dear Dr. Hicks This procedure was performed on Tuesday, February 02, 2021. My impressions and recommendations are as follows: Impressions : - Hemorrhoids found on perianal exam. - The examination was otherwise normal. - Three random biopsies were obtained in the sigmoid colon, in the descending colon and in the transverse colon. Recommendations : - Discharge patient to home. - Resume previous diet. - Continue present medications. - Await pathology results. - No repeat colonoscopy due to current age (66 years or older). My findings are described in the full procedure note, which is enclosed. If I can be of further assistance, please feel free to contact me at Doctor phone number(s): , Work: . Sincerely, MD Maya Wallace MD 02/02/2021 8:46:20 AM This report has been signed electronically.
--- NOTE | 2021-02-02 08:47 | OP.COLON_ITS ---
Patient Name: Mariella Silvestre Procedure Date: 02/02/2021 8:18 AM Date of : 1945 Age: 75 Procedure: Colonoscopy Indications: Chronic diarrhea Providers: Maya Frausto MD Referring MD: Maya Frausto MD Medicines: Monitored Anesthesia Care Patient Profile: Last Colonoscopy: more than 10 years ago. This is a 75 year old female. Complications: No immediate complications. Procedure: Pre-Anesthesia Assessment: - Prior to the procedure, a History and Physical was performed, and patient medications and allergies were reviewed. The patient's tolerance of previous anesthesia was also reviewed. The risks and benefits of the procedure and the sedation options and risks were discussed with the patient. All questions were answered, and informed consent was obtained. Prior Anticoagulants: The patient has taken no previous anticoagulant or antiplatelet agents. ASA Grade Assessment: Per anesthesia. After reviewing the risks and benefits, the patient was deemed in satisfactory condition to undergo the procedure. After I obtained informed consent, the scope was passed under direct vision. Throughout the procedure, the patient's blood pressure, pulse, and oxygen saturations were monitored continuously. The Colonoscope was introduced through the anus and advanced to the cecum, identified by the ileocecal valve. The colonoscopy was performed without difficulty. The patient tolerated the procedure well. The quality of the bowel preparation was good. Scope In: 8:18:46 AM Scope Withdrawal Time 0 hours 7 minutes 5 seconds Scope Out: 8:31:09 AM Total Procedure Duration Time 0 hours 12 minutes 23 seconds Findings: Hemorrhoids were found on perianal exam. Three random biopsies were obtained with cold forceps for histology in the sigmoid colon, in the descending colon and in the transverse colon. The exam was otherwise without abnormality. Impression: - Hemorrhoids found on perianal exam. - The examination was otherwise normal. - Three random biopsies were obtained in the sigmoid colon, in the descending colon and in the transverse colon. Recommendation: - Discharge patient to home. - Resume previous diet. - Continue present medications. - Await pathology results. - No repeat colonoscopy due to current age (66 years or older). Procedure Code(s): --- Professional --- 78541, Colonoscopy, flexible; with biopsy, single or multiple Diagnosis Code(s): --- Professional --- K64.9, Unspecified hemorrhoids K52.9, Noninfective gastroenteritis and colitis, unspecified CPT copyright 2017 [employer]. All rights reserved. The codes documented in this report are preliminary and upon forestry technician review may be revised to meet current compliance requirements. MD Maya Wallace MD 02/02/2021 8:46:20 AM This report has been signed electronically. Number of Addenda: 0 Note Initiated On: 02/02/2021 8:18 AM
== END 2021-02-02 09:23 ==
LOC: EN 06:49 → AC 06:50
PROVIDERS: PCP Family Medicine; Referring Provider Surgery; Visit Provider Surgery
PROC: 0DJD8ZZ Inspection of Lower Intestinal Tract, Via Natural or Artificial Opening Endoscopic (ICD-10-PCS; CPT 45378; principal; 2021-02-02 08:10)
DX: Z12.11 Encounter for screening for malignant neoplasm of colon (principal); K29.50 Unspecified chronic gastritis without bleeding; B96.81 Helicobacter pylori [H. pylori] as the cause of diseases classified elsewhere; K44.9 Diaphragmatic hernia without obstruction or gangrene; K64.9 Unspecified hemorrhoids; Z20.822 Contact with and (suspected) exposure to COVID-19; K58.9 Irritable bowel syndrome, unspecified; K21.9 Gastro-esophageal reflux disease without esophagitis; J44.9 Chronic obstructive pulmonary disease, unspecified; I10 Essential (primary) hypertension; E78.5 Hyperlipidemia, unspecified; M19.90 Unspecified osteoarthritis, unspecified site; M85.80 Other specified disorders of bone density and structure, unspecified site; F32.A Depression, unspecified; F17.210 Nicotine dependence, cigarettes, uncomplicated; Z79.899 Other long term (current) drug therapy; Z78.0 Asymptomatic menopausal state; Z85.3 Personal history of malignant neoplasm of breast
CPT/HCPCS: 43239; G0121; 87426; 88305; 88313; 88342; 94640; C9803; J7120; J2405

== ENCOUNTER 2021-04-06 10:23 | Outpatient (CLI) | payer MEDICARE, MEDICAID, SELFPAY ==
--- NOTE | 2021-04-06 10:26 | BI_ITS ---
MAMMOGRAPHY - BILATERAL SCREENING REASON FOR EXAM: Female, 75 years old. Routine annual screening examination. PERTINENT HISTORY: Personal history of breast cancer. Prior left lumpectomy with radiation treatment. Mother with breast cancer. TECHNIQUE: Digital bilateral breast gaston (3D mammographic acquisition) in the CC and MLO projections. 2-D mediolateral oblique (MLO) and craniocaudad (CC) views of both breasts were obtained. CAD: Full Field Digital Mammography with Computer Added Detection was performed. COMPARISON: Comparison is made with prior study dated 04/02/2020 and 03/09/2019. FINDINGS: Breast Composition: There are scattered areas of fibroglandular density. There are no dominant masses or suspicious calcifications. Once again, the patient is status post lumpectomy in the deep upper lateral aspect of the right breast with postoperative scarring and suture calcification. There has been no change. Stable small benign-appearing bilateral axillary lymph nodes. No other significant abnormalities are identified. There has been no significant change since the prior study. BI/SCRN MAMM (CAD)W/GASTON BILAT IMPRESSION: Stable bilateral screening mammogram. Yearly follow-up mammogram recommended. (A) ASSESSMENT CATEGORY: BIRADS Category 2: Benign. A letter regarding these results will be sent to the patient by the facility within 30 days. Approximately 10% of breast cancers are not detected by mammography. A normal mammogram should not delay biopsy of a clinically suspicious abnormality. [id number] Electronically Signed: Chapito Zurita MD at 11:57 EST , Service support ,
== END 2021-04-06 23:59 | disposition short-term general hospital (02) ==
PROVIDERS: PCP Family Medicine; Referring Provider Internal Medicine Medical Oncology; Visit Provider Internal Medicine Medical Oncology
DX: Z12.31 Encounter for screening mammogram for malignant neoplasm of breast (principal); Z85.3 Personal history of malignant neoplasm of breast
CPT/HCPCS: 77063; 77067

== ENCOUNTER 2021-05-20 09:46 | Outpatient (CLI) | payer MEDICARE, MEDICAID, SELFPAY ==
--- NOTE | 2021-05-20 09:51 | MRI_ITS ---
STUDY: MRI LUMBAR SPINE WITHOUT CONTRAST REASON FOR EXAM: Female, 75 years old. BOWEL AND BLADDER INCONTINENCE,RADICULOPATHY-bilat TECHNIQUE: Standardized fat and water weighted pulse sequences were obtained in the sagittal and axial planes. COMPARISON: None FINDINGS: T12-L1: Moderate bilobed disc protrusion produces moderate spinal stenosis and moderate right neural foraminal stenosis but no left neural foraminal stenosis. Normal lumbar lordosis. Mild dextroscoliosis centered at L3. Normal conus medullaris that terminates at the L1/L2. L1-2: Moderate bilateral disc protrusion produces moderate spinal stenosis with moderate bilateral neural foraminal stenosis. L2-3: Mild bilateral facet hypertrophy and ligament flavum hypertrophy. Moderate bilobed disc protrusion produces moderate spinal stenosis with moderate bilateral recess stenosis with abutment of the L3 nerve roots bilaterally and moderate bilateral neural foraminal stenosis. L3-4: Moderate bilateral facet hypertrophy and ligament flavum hypertrophy. Large broad disc protrusion produces severe spinal stenosis with severe bilateral lateral recess stenosis with effacement of the L4 nerve roots bilaterally, moderate right neural foraminal stenosis and severe left neural foraminal stenosis with effacement of the left L3 nerve root laterally. L4-5: Severe bilateral facet hypertrophy and moderate ligament flavum hypertrophy. 5 mm of anterolisthesis of L4 on L5 with a moderate broad disc protrusion produces severe spinal stenosis with severe bilateral lateral recess stenosis with effacement of the L5 nerve roots bilaterally and moderate bilateral neural foraminal stenosis. L5-S1: Mild bilateral facet hypertrophy and ligament flavum hypertrophy. Mild broad disc protrusion produces mild spinal stenosis and moderate bilateral neural foraminal stenosis with abutment of the L5 nerve roots bilaterally. Normal visualized sacral ala. Normal visualized paraspinous soft tissue structures. MRI/Spine Lumbar (Routine) IMPRESSION: Dextroscoliosis and degenerative disc disease as described above Electronically Signed: Mason Kumar MD at 16:40 EST ,
== END 2021-05-20 23:59 | disposition home or self-care (01) ==
LOC: MRI 09:47
PROVIDERS: PCP Family Medicine; Visit Provider Family Medicine
DX: M54.10 Radiculopathy, site unspecified (principal); R15.9 Full incontinence of feces; R32 Unspecified urinary incontinence
CPT/HCPCS: 72148

== ENCOUNTER 2021-06-17 15:00 | Outpatient (RCR) | payer MEDICARE, MEDICAID, SELFPAY ==
--- NOTE | 2021-05-27 13:34 | HP.PTEVAL_ITS ---
Patient's Visit Information ERINN EVERETT is a 75 year old F referred to Physical Therapy by Dr. Augusta Hicks DO with a diagnosis of LUMBAR SPINAL STENOSIS AND DDD. Date of Evaluation: 05/27/21 Physical Therapist: Belén Gilmore PT, Cert MDT - Visit Plan Frequency: 2-3x /Week Duration: 4-6 Weeks Plan: *LEFT ANKLE INFECTION - CURRENTLY ON ANTIBIOTICS. NO ANKLE EX'S ON THIS SIDE*. AQUATIC THERAPY FOR PAIN RELIEF, POSTURE CORRECTION/STRENGTHENING, INSTRUCTION IN APPROPRIATE BODY MECHANICS AND ACTIVITY MODIFICATIONS. DLS STARTING WITH A NEUTRAL SPINE PROGRESSING ROM TOLERATED. TYLER LE ROM, STRETCHING AND STRENGTHENING. HEP INSTRUCTION. 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 INVOLVES A LITTLE BIT OF LIFTING. Present symptoms: LOW BACK PAIN. TYLER LE PAIN, NUMBNESS TINGLING AND WEAKNESS. Present since: CHRONIC. Pain Scale: WORST 8/10, LEAST 2/10. Currently: 2/10. Commenced as a result of: NO APPARENT REASON OTHER THAN A LOT OF LIFTING A NURSES AIDE. Symptoms at onset: LOW BACK PAIN. Worse: STANDING STILL, STANDING STRAIGHT UP, SITTING ON TOLIET, SITTING AT KITCHEN TABLE WITH LEGS DOWN. Better: SITTING ON COUCH WITH FEET UP OR LYING IN BED. Disturbed sleep: SOMETIMES YES. Previous history/Previous treatment/Treatment this episode: OSTEOPATHIC MANIPULATIONS NEEDED FOR YEARS. NO BACK SURGERY. NO THUAN'S. H/O OF PHYSICAL THERPAPY FOR BACK - AQUATIC THERPAY - HELPS SOMETIMES. MEDICATIONS. Coughing/sneezing/straining: NEGATIVE. Gait: I WADDLE LIKE A DUCK. I HAVE A CANE BUT I DON'T USE IT. TIME AND DISTANCE LIMITED DUE TO BACK AND LEG PAIN. Difficulty initiating urination: NO. UNINARY AND BOWEL INCONTINENCE - MOSTLY CONTROLLED BY MEDICATION. Accidents: NO. Unexplained weight loss: NO. Imaging: Augusta Hicks DO. STUDY: MRI LUMBAR SPINE WITHOUT CONTRAST. REASON FOR EXAM: Female, 75 years old. BOWEL AND BLADDER. INCONTINENCE,RADICULOPATHY-bilat. TECHNIQUE: Standardized fat and water weighted pulse sequences were. obtained in the sagittal and axial planes. COMPARISON: None. . FINDINGS: T12-L1: Moderate bilobed disc protrusion produces moderate spinal stenosis. and moderate right neural foraminal stenosis but no left neural foraminal. stenosis. Normal lumbar lordosis. Mild dextroscoliosis centered at L3. Normal conus. medullaris that terminates at the L1/L2. L1-2: Moderate bilateral disc protrusion produces moderate spinal stenosis. with moderate bilateral neural foraminal stenosis. L2-3: Mild bilateral facet hypertrophy and ligament flavum hypertrophy. Moderate bilobed disc protrusion produces moderate spinal stenosis with. moderate bilateral recess stenosis with abutment of the L3 nerve roots. bilaterally and moderate bilateral neural foraminal stenosis. L3-4: Moderate bilateral facet hypertrophy and ligament flavum. hypertrophy. Large broad disc protrusion produces severe spinal stenosis. with severe bilateral lateral recess stenosis with effacement of the L4. nerve roots bilaterally, moderate right neural foraminal stenosis and. severe left neural foraminal stenosis with effacement of the left L3 nerve. root laterally. L4-5: Severe bilateral facet hypertrophy and moderate ligament flavum. hypertrophy. 5 mm of anterolisthesis of L4 on L5 with a moderate broad. disc protrusion produces severe spinal stenosis with severe bilateral. lateral recess stenosis with effacement of the L5 nerve roots bilaterally. and moderate bilateral neural foraminal stenosis. L5-S1: Mild bilateral facet hypertrophy and ligament flavum hypertrophy. Mild broad disc protrusion produces mild spinal stenosis and moderate. bilateral neural foraminal stenosis with abutment of the L5 nerve roots. bilaterally. Normal visualized sacral ala. Normal visualized paraspinous soft tissue structures. . MRI/Spine Lumbar (Routine). IMPRESSION: Dextroscoliosis and degenerative disc disease as described above. . Electronically Signed: Mason Kumar MD. at 16:40 EST. , . PMH/Recent major surgery: ANXIETY DISORDER, HTN, H/O BREAST CANCER, KIL KNEE PAIN, SMOKER, IBS, INCONTINENCE, COPD, LTKR X 2. OTHER: CURRENTLY HAS INFECTED LEFT ANKLE AND HAS BEEN ON ANTIBIOTICS FOR 2 WEEKS - NO OPEN SORES. - Objective Sitting/Standing Posture: POOR. SCOLIOSIS. Active Correction of posture: WORSE. Other Observations: INDEP GAIT INTO PT WITHOUT AD OR LOB BUT WITH INCREASED TRUNK FLEXION AND DECREASED CADANCE. ABLE TO TRANSFER FROM SIT TO STAND WITHOUT UE ASSIST BUT WITH DIFFICULTY. DIFFICULTY INITIATING GAIT AFTER SITTING. Motor deficit: TYLER HIPS 4-/5, TYLER KNEE FLEX/EXT 4/5, RIGHT ANKLE 5/5, LEFT ANKLE - NT. Sensory deficit: TYLER LE LIGHT TOUCH SENSATION IS GROSSLY INTACT AND SYMMETRICAL BUT TENDER LEFT ACHILLES AREA. ROM deficit: TYLER LE HIP FLEXOR, HS AND GASTROC SOLEUS COMPLEX TIGHTNESS. GENTLE AROM TESTING ONLY OF L ANKLE DUE TO L ACHILLES AREA INFECTION AND PATIENT HAS PAIN WITH DORSIFLEXION AROM. Dural Signs: POSITIVE TYLER LE'S. Lumbar mvmt loss: flex - MOD. ext - MIRYAM. R SG - MIRYAM. L SG - MIRYAM. Core strength: POOR. Palpation: NO ACUTE LUMBOSACRAL TENDERNESS. OTHER: PATIENT HAS URINARY INCONTINENCE BUT IS GOING TO PURCHASE SWIM DIAPER AND FURTHER DISCUSS INCONTINENCE WITH POOL THERAPIST BEFORE GETTING IN POOL. - Balance/Special Test Scores Oswestry Low Back Score: 20 - Goals Goal 1:: DECREASE C/O LOW BACK AND TYLER LE SX'S. Goal Time Frame: 4-6 Weeks Goal 2:: IMPROVE PERSONAL CARE, LIFTING, WALKING, STANDING, SOCIAL LIFE, TRAVEL AND HOMEMAKING FUNCTION Goal Time Frame: 4-6 Weeks Goal 3:: INSTRUCT IN PROPHYLAXIS Goal Time Frame: 4-6 Weeks - Anticipated Interventions Patient/Client Instruction: Educate patient on: Condition, Plan of Care, Risk Factors For the Purpose of:: To improve self management Therapeutic Exercise to Include: Strength training, Body mechanics, Postural training, Flexibilty training, Neuromotor development, In an aquatic setting, Dynamic Lumbar Stabilization For the Purpose of:: To decrease pain, To increase ROM, To improve muscle performance and motor function, To increase tolerance to activity/condition/position, To improve ability of physical actions for home/community/work/leisure For the Purpose of:: To decrease pain, To improve nutrient delivery to tissue Thank you for the opportunity to evaluate your patient. For Medicare and Medicare HMO plans, please review the plan of care and approve it. It will need to be FAXED BACK to us at [phone] for Medicare purposes. For Medicare only, by signing this I certify the plan of care. Please let me know if there are questions or concerns regarding this plan of care. Physician Signature: Date:
== END 2021-06-17 19:00 | disposition home or self-care (01) ==
LOC: PT 15:00
PROVIDERS: PCP Family Medicine; Referring Provider Family Medicine; Visit Provider Family Medicine
DX: M51.37 Other intervertebral disc degeneration, lumbosacral region (principal); M48.061 Spinal stenosis, lumbar region without neurogenic claudication
CPT/HCPCS: 97113; 97162

== ENCOUNTER 2021-07-11 10:43 | Emergency (ER) | payer MEDICARE, MEDICAID, SELFPAY ==
[2021-07-11 10:44] VITALS: BP 158/98; PULSE 89; RESP 14; TEMP 36.4; O2SAT 96; BMI 27.3
[2021-07-11 10:48] VITALS: BMI 27.3
--- NOTE | 2021-07-11 10:50 | CT_ITS ---
We are attempting to reach an attending provider to discuss findings. An addendum with communication details will be sent when the communication is complete. STUDY: CT HEAD STROKE PROTOCOL W/O CONTRAST INJECTION REASON FOR EXAM: Female, 75 years old. Neuro deficit, acute, stroke suspected RADIATION DOSAGE (If Supplied By Facility): CTDIvol = ( ) mGy, DLP = ( ) mGycm TECHNIQUE: Transaxial CT imaging of the brain was performed without administration of intravenous contrast material. Individualized dose optimization techniques were used for this CT. COMPARISON: No relevant priors. FINDINGS: Normal soft tissue structures. Normal calvarium. Normal size ventricles and extra-axial spaces for the patient''s age. There is mild periventricular and white matter lucency suggestive of small vessel ischemic changes. Normal basal ganglia and thalami. Normal brainstem. Normal cerebellum. There is no intracranial hemorrhage. There are no findings of an acute ischemic infarction. Normal visualized paranasal sinuses. CT/STROKE Brain/Head without Cont IMPRESSION: There is mild periventricular and white matter lucency suggestive of small vessel ischemic changes. Electronically Signed: Matthew Lawson MD at 11:22 EDT ,
--- NOTE | 2021-07-11 10:51 | EDS_ITS ---
HPI History of Present Illness Chief Complaint: Neuro S/Sx Narrative Narrative: Patient with past uncle history of smoking, COPD, hypertension, but not currently on medication because she states that they took her off of it, presents with left-sided facial droop and difficulty closing her left eye since this morning. She noticed that she was having problems moving the left side of her face this morning when she went out to have a cigarette. She feels her symptoms are getting worse. She does not have a headache. She denies any paresthesias. No chest pain or shortness of breath. She knows she was having difficulty drinking and smoking on the left side of her mouth. She noticed this at 7:15 in the morning, over 3 hours ago. [facility] Medical History Arthritis Bladder incontinence Cervical cancer Chronic cough COPD (chronic obstructive pulmonary disease) COPD exacerbation Depression Gastric reflux GERD (gastroesophageal reflux disease) History of left breast cancer History of stress test Hyperlipidemia IBS (irritable bowel syndrome) Leg cramps Osteoarthritis Osteopenia Personal history of malignant neoplasm of breast Shortness of breath on exertion Skin cancer Smoker Tobacco abuse Vitamin D deficiency Wears dentures Home Medications citalopram 20 mg PO QHS 03/22/14 [History Last Taken 06/06/19] albuterol sulfate 2 Q4H PRN PRN 01/29/21 [History Last Taken Unknown] cholecalciferol (vitamin D3) [Vitamin D3] 125 mcg PO QHS 01/29/21 [History Last Taken Unknown] bismuth subsalicylate 525 mg/15 mL oral suspension 525 mg PO .QID PRN 14 Days #354 ml 02/02/21 [Rx Last Taken Unknown] pantoprazole 40 mg tablet,delayed release 40 mg PO DAILY #30 tab 02/02/21 [Rx Last Taken Unknown] diphenoxylate-atropine 2.5 mg-0.025 mg tablet ea PO 04/14/21 [History Last Taken Unknown] acyclovir 1 tab PO 5X/DAY 10 Days #50 tab 07/11/21 [Rx Last Taken Unknown] artificial tears with lanolin 1 applic LEFT EYE BID #3.5 g 07/11/21 [Rx Last Taken Unknown] prednisone 50 mg PO DAILY #5 tab 07/11/21 [Rx Last Taken Unknown] Allergy/AdvReac Type Severity Reaction Status Date / Time ibuprofen AdvReac Nausea/Vom/ Verified 07/11/21 10:50 Diarrhea Family History Father Emphysema Heart disease Mother Seizures Breast cancer Surgical History H/O: hysterectomy History of colonoscopy (~02/2021) History of esophagogastroduodenoscopy (EGD) (~02/2021) History of knee replacement History of lumpectomy S/P cholecystectomy Social History Smoking Status: Current every day smoker tobacco type: cigarettes ROS ROS ED ROS Narrative Constitutional: No fever, no chills. HEENT: No sore throat. No neck pain. No loss of vision. No rhinorrhea. Difficulty closing left eye. Left-sided facial droop. Cardiovascular: No chest pain. No palpitations. No pedal edema. Respiratory: No cough, no shortness of breath. Abdominal: No abdominal pain. No nausea. No vomiting. Genitourinary: No dysuria. No hematuria. Musculoskeletal: No myalgias. No arthralgias. Neurologic: No headaches. Thought maybe had an ear infection last night. No dizziness. No lightheadedness. Skin: No rash. No change in color. Psychiatric: No depression. No anxiety. EXAM Physical Exam Narrative Exam Narrative: Afebrile. Vital signs noted. HEENT: Normocephalic. Atraumatic. PERRL, EOMI. Neck soft and supple. No point tenderness or step off. Left-sided facial droop. Difficulty closing left eye. Positive forehead involvement/left forehead weakness. Cardiovascular: Regular rate and rhythm. No murmurs, rubs, or gallops appreciated. Respiratory: No tachypnea. Lungs clear to auscultation bilaterally. Gastrointestinal: Abdomen soft, nontender, with normoactive bowel sounds. No rebound or guarding. Neurological: Awake. Alert. 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 NIH stroke scale 2 secondary to left-sided facial droop. Skin: No rash. Normal color. No pallor. Musculoskeletal: No pedal edema. Full range of motion extremities. Const Vital Signs: 07/11/21 10:44 Temperature 97.6 F L Temperature Source Temporal Pulse Rate 89 Respiratory Rate 14 Blood Pressure 158/98 H Blood Pressure Mean 118 Pulse Ox 96 Oxygen Delivery Method Room Air MDM MDM MDM Narrative Medical decision making narrative: I do not feel stroke team is indicated as her exam is consistent with Moss's palsy. Regardless I will obtain a CT of the brain and obtain a CBC with a basic metabolic panel. CBC is grossly normal with a normal white count of 8.5, hemoglobin normal at 14.7 with hematocrit 43.3. Potassium is slightly low at 3.4, creatinine at her baseline of 1.12, normal BUN. [id number] glucose also normal at 155. I did obtain a CT of the brain given her age and there is mild periventricular white matter lucencies suggestive of small vessel ischemic changes, but no acute hemorrhage or mass. Once again, based on her clinical examination with unilateral forehead weakness on the left including her facial droop I do feel this is more of a Moss's palsy. She was given her first dose of acyclovir and prednisone and prescriptions writ ten for the remaining course of therapy along with Lacri-Lube. She was told of the possible residual deficits that can happen with Moss's palsy. She will follow up with her primary care physician. She was told that she may need follow-up with neurology in the future. I feel she be discharged safely home. Return instructions were reviewed. Disposition is discharged home in stable condition. Lab Data Attestation: I reviewed the patient's lab results. Labs: Laboratory Results - last 24 hr 07/11/21 07/11/21 07/11/21 10:54 10:55 10:55 WBC 8.5 RBC 4.84 Hgb 14.7 Hct 43.3 MCV 89.5 MCH 30.4 MCHC 33.9 RDW Std Deviation 43.4 RDW Coeff of Nahed 13.2 Plt Count 269 MPV 9.2 Immature Gran % (Auto) 0.200 Neut % (Auto) 78.2 H Lymph % (Auto) 16.2 L Treasure % (Auto) 4.2 Eos % (Auto) 0.6 Baso % (Auto) 0.6 Absolute Neuts (auto) 6.6 Absolute Lymphs (auto) 1.38 Nucleated RBC % 0 Sodium 141 Potassium 3.4 L Chloride 107 Carbon Dioxide 28.0 Anion Gap 6 BUN 14 Creatinine 1.12 H Estim Creat Clear Calc 35.35 Est GFR (MDRD) Af Amer 61 Est GFR (MDRD) Non-Af 50 L BUN/Creatinine Ratio 12.5 Glucose 167 H Calcium 8.8 POC Glucose 155 H Radiography Diagnostic Testing: Clinical Impression(s) from Imaging Studies Brain CT 07/11/21 10:50 IMPRESSION: There is mild periventricular and white matter lucency suggestive of small vessel ischemic changes. Electronically Signed: Matthew Lawson MD at 11:22 EDT , Discharge Plan Triage Chief Complaint: Neuro S/Sx ED Provider: Nain Steele Dx/Rx/DC Orders Clinical Impression: Left-sided Moss's palsy, Tobacco abuse Instructions: ED Moss's Palsy Prescriptions: New prednisone 50 mg tablet 50 mg PO DAILY Qty: 5 RF: 0 acyclovir 400 mg tablet 1 tab PO 5X/DAY 10 Days Qty: 50 RF: 0 artificial tears with lanolin Ointment 1 applic LEFT EYE BID Qty: 3.5 RF: 0 No Action diphenoxylate-atropine 2.5-0.025 mg tablet PO RF: 0 citalopram 20 MG tablet 20 mg PO QHS RF: 0 cholecalciferol (vitamin D3) [Vitamin D3] 125 mcg (5,000 unit) Tablet 125 mcg PO QHS RF: 0 albuterol sulfate 1 PUFF HFA aerosol inhaler 2 Q4H PRN PRN (Reason: Sob &/Or Wheezing nebulizer) RF: 0 bismuth subsalicylate 525 mg/15 mL suspension 525 mg PO .QID PRN (Reason: H Pylori) 14 Days Qty: 354 RF: 1 pantoprazole [Protonix] 40 mg tablet,delayed release (DR/EC) 40 mg PO DAILY Qty: 30 RF: 2 Primary Care Provider: Augusta Hicks Referrals: Augusta Hicks DO [Primary Care Provider] - 3-5 Days if not improving Disposition Disposition: Home, Self Care
[2021-07-11 11:01] LABS: Bedside Glucose 155 mg/dL (74-106)
[2021-07-11 11:12] LABS: Absolute Lymphocyte Count 1.38 X10^3/uL (0.83-4.51); Absolute Neutrophil Count 6.6 X10^3/uL (2.0-7.7); Basophil# 0.05 X10^3/uL; Basophil% 0.6 % (0-1); Eosinophil# 0.05 X10^3/uL; Eosinophils% 0.6 % (0-5); Hematocrit 43.3 % (37-47); Hemoglobin 14.7 g/dL (12.0-15.0); Lymphocyte # 1.38 X10^3/ul (0.83-4.51); Lymphocyte % 16.2 % (19-41); Mean Corp Hgb Conc 33.9 g/dL (32-36); Mean Corpuscular Hgb 30.4 pg (27.0-32.0); Mean Corpuscular Volume 89.5 fL (81-99); Mean Platelet Vol. 9.2 fl (6.2-12.0); Monocyte# 0.36 X10^3/uL; Monocyte% 4.2 % (0-10); NRBC Flagged by Analyzer 0 % (0-5); Neutrophil # 6.64 X10^3/uL (2.7-7.7); Neutrophil % 78.2 % (47-70); Platelet Count 269 K/mm3 (150-450); RBC Distribution Width CV 13.2 % (11.6-14.6); RBC Distribution Width SD 43.4 fl (35.1-43.9); Red Blood Count 4.84 M/mm3 (4.2-5.4); White Blood Count 8.5 K/mm3 (4.4-11.0)
[2021-07-11 11:23] LABS: Anion Gap 6 (5-15); BUN 14 mg/dL (7-18); BUN/Creat Ratio 12.5 RATIO (10-20); Calcium,Total 8.8 mg/dL (8.5-10.1); Chloride 107 mmol/L (98-107); Creatinine, Serum 1.12 mg/dL (0.55-1.02); EST Glomerular Filtration Rate 50 mL/min (>60); Est Glom Filt Rate - Afr Amer 61 mL/min (>60); Estimated Creatinine Clearance 35.35 ml/min; Glucose 167 mg/dL (74-106); Potassium 3.4 mmol/L (3.5-5.1); Sodium Level 141 mmol/L (136-145)
[2021-07-11] MEDS: predniSONE 20 MG Tablet 50 MG PO (11:42)
[2021-07-11] MEDS: Acyclovir 200 MG Capsule 400 MG PO (11:44)
[2021-07-11 11:58] VITALS: BP 141/74; PULSE 82
== END 2021-07-11 11:58 | disposition home or self-care (01) ==
PROVIDERS: Emergency Provider Emergency Medicine; PCP Family Medicine; Visit Provider Emergency Medicine
DX: G51.0 Bell's palsy (principal); J44.9 Chronic obstructive pulmonary disease, unspecified; G93.89 Other specified disorders of brain; I10 Essential (primary) hypertension; E78.5 Hyperlipidemia, unspecified; M19.90 Unspecified osteoarthritis, unspecified site; K21.9 Gastro-esophageal reflux disease without esophagitis; F32.A Depression, unspecified; F17.210 Nicotine dependence, cigarettes, uncomplicated; Z79.899 Other long term (current) drug therapy
CPT/HCPCS: 70450; 80048; 82962; 85025; 99284

== ENCOUNTER → 2021-07-29 | Outpatient (CLI) | payer MEDICARE, MEDICAID, SELFPAY ==
--- NOTE | 2021-07-29 10:58 | MRI_ITS ---
STUDY: MRI LEFT ANKLE WITHOUT CONTRAST REASON FOR EXAM: Female, 75 years old. LEFT ANKLE, ACHILLES TENDON RUPTURE/ TEAR TECHNIQUE: Standarized fat and water weighted pulse sequences were obtained in all 3 orthogonal plane without contrast material. COMPARISON: None. FINDINGS: Normal subcutis adipose space. Normal posterior tibialis tendon. Normal flexor digitorum longus tendon. Normal flexor hallucis longus tendon. Normal peroneus longus and brevis tendons. Normal tibialis anterior tendon. Normal extensor hallucis longus tendon. Normal extensor digitorum longus tendons. There is tendinosis of the Achilles tendon with diffuse tendon thickening, but without a partial, intratendinous, or full-thickness tear. Normal plantar fascia. Normal plantar calcaneal tubercles. Normal intrinsic muscles of the rearfoot. Normal distal tibiofibular syndesmotic ligamentous complex. Normal lateral ligamentous complex. Normal subtalar ligaments and sinus tarsi. Normal deltoid ligamentous complexes. Normal plantar calcaneonavicular (spring) ligament. Normal tibiotalar articulation. Normal talar dome. Normal subtalar articulations. Normal talonavicular articulation. Normal calcaneocuboid articulation. Normal navicular-cuneiform articulations. There is no abnormal contrast enhancement. MRI/Lower Ext Joint Only (Routine) IMPRESSION: There is tendinosis of the Achilles tendon with diffuse tendon thickening, but without a partial, intratendinous, or full-thickness tear. Electronically Signed: Duncan Webb MD at 15:34 EDT ,
== END | disposition home or self-care (01) ==
LOC: MRI 10:47
PROVIDERS: PCP Family Medicine; Referring Provider Student in an Organized Health Care Education/Training Program; Visit Provider Student in an Organized Health Care Education/Training Program
DX: S86.002A Unspecified injury of left Achilles tendon, initial encounter (principal); M79.662 Pain in left lower leg
CPT/HCPCS: 73721

== ENCOUNTER → 2021-12-13 | Day surgery (SDC) | payer MEDICARE, MEDICAID, SELFPAY ==
[2021-12-13] VITALS (10 sets, daily range): BP systolic 113–155; BP diastolic 71–97; PULSE 63–78; RESP 16–18; TEMP 37.2; O2SAT 87–97; BMI 26.5
--- NOTE | 2021-12-13 12:16 | ED.VIS.GI ---
HPI HPI - GI History of Present Illness Chief Complaint: Foreign Body Detail of Chief Complaint: Esophageal food impaction Informant: patient Narrative Narrative: Patient presents the emergency department complaint of piece of hotdog being stuck in her throat since 5:30 PM last night. Patient can swallow liquids and her own saliva. She is never had this happen before. She has history of COPD. She denies any difficulty breathing. She denies chest pain. Prior similar symptoms: No PFSH PFSH Medical History Arthritis Bladder incontinence Cervical cancer Chronic cough COPD (chronic obstructive pulmonary disease) COPD exacerbation Depression Gastric reflux GERD (gastroesophageal reflux disease) History of left breast cancer History of stress test Hyperlipidemia IBS (irritable bowel syndrome) Leg cramps Osteoarthritis Osteopenia Personal history of malignant neoplasm of breast Shortness of breath on exertion Skin cancer Smoker Tobacco abuse Vitamin D deficiency Wears dentures Home Medications citalopram 20 mg tablet 20 mg PO QHS depression 03/22/14 [History Last Taken 06/06/19] albuterol sulfate 90 mcg/actuation aerosol inhaler 2 Q4H PRN PRN Sob &/Or Wheezing nebulizer 01/29/21 [History Last Taken Unknown] cholecalciferol (vitamin D3) 125 mcg (5,000 unit) tablet (Vitamin D3) 125 mcg PO QHS 01/29/21 [History Last Taken Unknown] bismuth subsalicylate 525 mg/15 mL oral suspension 525 mg (15 mL) PO .QID PRN H Pylori 14 days #354 mL 02/02/21 [Rx Last Taken Unknown] pantoprazole 40 mg tablet,delayed release (Protonix) 40 mg PO DAILY #30 tabs 02/02/21 [Rx Last Taken Unknown] diphenoxylate-atropine 2.5 mg-0.025 mg tablet ea PO 04/14/21 [History Last Taken Unknown] acyclovir 400 mg tablet 1 tab PO 5X/DAY 10 days #50 tabs 07/11/21 [Rx Last Taken Unknown] artificial tears with lanolin eye ointment 1 applic LEFT EYE BID #3.5 grams 07/11/21 [Rx Last Taken Unknown] prednisone 50 mg tablet 50 mg PO DAILY #5 tabs 07/11/21 [Rx Last Taken Unknown] Allergy/AdvReac Type Severity Reaction Status Date / Time ibuprofen AdvReac Nausea/Vom/ Verified 12/13/21 11:06 Diarrhea Family History Father Emphysema Heart disease Mother Seizures Breast cancer Surgical History H/O: hysterectomy History of colonoscopy (~02/2021) History of esophagogastroduodenoscopy (EGD) (~02/2021) History of knee replacement History of lumpectomy S/P cholecystectomy Social History Smoking Status: Current every day smoker tobacco type: cigarettes ROS ROS ED Review of Systems ROS Unobtainable: other Constitutional Constitutional ED: Reports lethargy; Denies chills, fever(s), sweats or weight loss Eyes Eyes: Denies blurry vision, change in vision or diplopia ENT ENT ED: Denies rhinorrhea or sore throat Cardiovascular Cardiovascular: Denies chest pain, orthopnea or racing heartbeat Respiratory/Chest Respiratory/Chest: Denies cough, dyspnea, dyspnea on exertion, orthopnea or sputum Gastrointestinal Gastrointestinal: Reports other Details: Esophageal food impaction ; Denies abdominal pain, diarrhea, nausea or vomiting Genitourinary Genitourinary ED: Denies dysuria, hematuria or urinary frequency Musculoskeletal Musculoskeletal: Denies arthralgias, back pain, myalgias or neck pain Integumentary Denies abscess, Abrasions or rash Neurologic Neurologic: Denies headache(s) or weakness Psychiatric Psychiatric: Denies anxiety, depression or suicidal thoughts Endocrine Endocrinology: Denies polydipsia, polyphagia or polyuria Hematologic/Lymphatic Hematologic/Lymphatic: Denies easy bleeding, easy bruising or lymphadenopathy Allergic/Immunologic Allergic/Immunologic ED: Denies mouth swelling, tongue swelling or urticaria EXAM Physical Exam Narrative Exam Narrative: Patient spitting her secretions into a emesis bag as I enter the room. Const Vital Signs: 12/13/21 11:06 12/13/21 11:27 Temperature 98.9 F Temperature Source Temporal Pulse Rate 78 Respiratory Rate 16 Respiratory Pattern Normal Blood Pressure 140/86 H Blood Pressure Mean 104 Pulse Ox 97 Oxygen Delivery Method Room Air Positive well nourished and well developed General Appearance ED: well developed and NAD HEENT Reports TM's clear and moist mucous membranes normocephalic and atraumatic; Negative for trauma or tenderness Tympanic Membrane ED: Yes TM's clear Eyes PERRL and EOMs intact bilaterally General Eye ED: Negative for pale conjunctiva or scleral icterus Neck no lymphadenopathy, supple and no JVD General: Negative for tenderness Chest Wall inspection of chest normal and palpation of chest normal Chest: Negative for tenderness Resp normal respiratory effort and clear to auscultation bilaterally Effort and Inspection: Negative for respiratory distress or pain with movement Auscultation: Negative for rhonchi, wheezes or diminished lung sounds Cardio regular rate, regular rhythm, S1 normal heart sound, S2 normal heart sound and no murmurs Peripheral Pulses: pulses 2+ throughout GI normal to inspection, nondistended, normoactive bowel sounds, soft to palpation, non-tender, non-distended and no masses Back/Spine no CVA tenderness and no thoracic nor lumbar tenderness Extremity normal to inspection General Extremety ED: Negative for edema General Extremity: Negative for edema Neuro oriented x3, CN's II-XII intact bilaterally, no sensory deficits noted and gait normal Sensorium / Orientation: awake, alert, oriented to person, oriented to place and oriented to time Motor Exam: strength 5/5 throughout and strength abnormal Psych mental status grossly normal Skin no rashes or lesions noted and no wounds MDM MDM MDM Narrative Medical decision making narrative: IV line established. Patient was given glucagon 1 mg IV. Case discussed with general surgeon on-call who will present to the emergency department for EGD for removal of esophageal foreign body. Discharge Plan Triage Chief Complaint: Foreign Body ED Provider: Juan Alberto Keller Dx/Rx/DC Orders Prescriptions: No Action diphenoxylate-atropine 2.5-0.025 mg tablet PO Label Comments: TAKE 1 TABLET FOUR TIMES DAILY NEEDED for diarrhea citalopram 20 MG tablet 20 mg PO QHS cholecalciferol (vitamin D3) [Vitamin D3] 125 mcg (5,000 unit) Tablet 125 mcg PO QHS albuterol sulfate 1 PUFF HFA aerosol inhaler 2 Q4H PRN PRN (Reason: Sob &/Or Wheezing nebulizer) prednisone 50 mg tablet 50 mg PO DAILY Qty: 5 0RF acyclovir 400 mg tablet 1 tab PO 5X/DAY 10 Days Qty: 50 0RF artificial tears with lanolin Ointment 1 applic LEFT EYE BID Qty: 3.5 0RF bismuth subsalicylate 525 mg/15 mL suspension 525 mg PO .QID PRN (Reason: H Pylori) 14 Days Qty: 354 1RF pantoprazole [Protonix] 40 mg tablet,delayed release (DR/EC) 40 mg PO DAILY Qty: 30 2RF Primary Care Provider: Augusta Hicks
[2021-12-13] MEDS: Glucagon 1 MG/ML Syringe IV (12:39)
--- NOTE | 2021-12-13 12:57 | CON.PCM.SX_ITS ---
Assessment & Plan Assessment/Plan (1) Food impaction of esophagus: PLAN: Plan I have discussed the above with the patient. I have offered the patient esophagogastroduodenoscopy for evaluation and removal of foreign body/food.. I have explained the risks/benefits of the procedure and described the procedure. I have discussed the risks with the patient, including but not limited to: infection, bleeding, perforation of the GI tract requiring emergency surgery, inability to complete the procedure, injury to any internal organs, complications of anesthesia, etc. also discussed with patient that if she did have a stricture would not dilate at this time patient will need follow- up EGD for that.- the patient understands and agrees to proceed. I have answered all the patient's questions to the patient's satisfaction and the patient has no further questions. Maya Frausto M.D. Pager: [phone] [facility] [address] [place] [address], [address] [place] [address] Office: [phone] HPI Consult Data Date of Consult: 12/13/21 HPI Narrative Reason for Consultation: Esophageal foreign body HPI Narrative: ERINN EVERETT, is a 76 F who presents to the ER due to dysphagia. Patient states she was at a birthday alliance party had a bite of hot dog as well as watermelon and they did not passed through to her stomach. Patient had chest pain had some nausea tried to throw up but was unable able to patient has only spitting up phlegm. Patient does complain of pain in her chest. Denies any abdominal pain. Patient never had a previous EGD and denies having issues with dysphagia prior to this. Patient is on Protonix for reflux states that does control her symptoms. [facility] Medical History Arthritis Bladder incontinence Cervical cancer Chronic cough COPD (chronic obstructive pulmonary disease) COPD exacerbation Depression Gastric reflux GERD (gastroesophageal reflux disease) History of left breast cancer History of stress test Hyperlipidemia IBS (irritable bowel syndrome) Leg cramps Osteoarthritis Osteopenia Personal history of malignant neoplasm of breast Shortness of breath on exertion Skin cancer Smoker Tobacco abuse Vitamin D deficiency Wears dentures Home Medications citalopram 20 mg tablet 20 mg PO QHS depression 03/22/14 [History Last Taken 06/06/19] albuterol sulfate 90 mcg/actuation aerosol inhaler 2 Q4H PRN PRN Sob &/Or Wheezing nebulizer 01/29/21 [History Last Taken Unknown] cholecalciferol (vitamin D3) 125 mcg (5,000 unit) tablet (Vitamin D3) 125 mcg PO QHS 01/29/21 [History Last Taken Unknown] bismuth subsalicylate 525 mg/15 mL oral suspension 525 mg (15 mL) PO .QID PRN H Pylori 14 days #354 mL 02/02/21 [Rx Last Taken Unknown] pantoprazole 40 mg tablet,delayed release (Protonix) 40 mg PO DAILY #30 tabs 02/02/21 [Rx Last Taken Unknown] diphenoxylate-atropine 2.5 mg-0.025 mg tablet ea PO 04/14/21 [History Last Taken Unknown] acyclovir 400 mg tablet 1 tab PO 5X/DAY 10 days #50 tabs 07/11/21 [Rx Last Taken Unknown] artificial tears with lanolin eye ointment 1 applic LEFT EYE BID #3.5 grams 07/11/21 [Rx Last Taken Unknown] prednisone 50 mg tablet 50 mg PO DAILY #5 tabs 07/11/21 [Rx Last Taken Unknown] Allergy/AdvReac Type Severity Reaction Status Date / Time ibuprofen AdvReac Nausea/Vom/ Verified 12/13/21 11:06 Diarrhea Family History Father Emphysema Heart disease Mother Seizures Breast cancer Surgical History H/O: hysterectomy History of colonoscopy (~02/2021) History of esophagogastroduodenoscopy (EGD) (~02/2021) History of knee replacement History of lumpectomy S/P cholecystectomy Social History Smoking Status: Current every day smoker tobacco type: cigarettes ROS Constitutional Constitutional: Reports anorexia; Denies fever(s) Cardiovascular Cardiovascular: Reports chest pain Respiratory/Chest Respiratory/Chest: Denies cough Gastrointestinal Gastrointestinal: Reports nausea; Denies abdominal pain Physical Exam Const alert, oriented x3 and no apparent distress HEENT normocephalic and head/scalp atraumatic Resp normal respiratory effort Cardio regular rate GI soft to palpation and non-tender; Negative for non-distended Palpation: Negative for guarding Extremity no clubbing, cyanosis or edema Neuro CN's II-XII intact bilaterally Psych mental status grossly normal Procedure Criteria Type of Procedure Procedure Type: Elective Elective Risks - COVID COVID Risk Discussion: The surgeon/proceduralist and patient have discussed in detail the risk of exposure to and/or potential harm posed by the COVID-19 virus with having a surgery/procedure at this time versus the risk of delaying the chavez rgery/procedure. It is not possible to know either the risk of delaying the surgery or procedure or chance of getting an infection with perfect accuracy, but a joint decision was made between the patient and the surgeon/proceduralist to proceed at this time with the scheduled surgery/procedure as indicated on the consent form.
--- NOTE | 2021-12-13 14:02 | OP.EGD_ITS ---
Patient Name: Mariella Silvestre Procedure Date: 12/13/2021 1:12 PM Date of : 1945 Age: 76 Procedure: Upper GI endoscopy Indications: Foreign body in the esophagus Providers: Maya Frausto MD Medicines: Monitored Anesthesia Care Patient Profile: This is a 76 year old female. Complications: No immediate complications. Procedure: Pre-Anesthesia Assessment: - Prior to the procedure, a History and Physical was performed, and patient medications and allergies were reviewed. The patient's tolerance of previous anesthesia was also reviewed. The risks and benefits of the procedure and the sedation options and risks were discussed with the patient. All questions were answered, and informed consent was obtained. Prior Anticoagulants: The patient has taken no previous anticoagulant or antiplatelet agents. ASA Grade Assessment: Per anesthesia. After reviewing the risks and benefits, the patient was deemed in satisfactory condition to undergo the procedure. After obtaining informed consent, the endoscope was passed under direct vision. Throughout the procedure, the patient's blood pressure, pulse, and oxygen saturations were monitored continuously. The gastroscope was introduced through the mouth, and advanced to the second part of duodenum. The upper GI endoscopy was technically difficult and complex due to presence of food. Successful completion of the procedure was aided by changing back and forth from tripod forceps/net as food was soft. The patient tolerated the procedure well. Scope In: 1:20:58 PM Scope Out: 1:51:49 PM Total Procedure Duration Time 0 hours 30 minutes 51 seconds Findings: The Z-line was variable. Moderate inflammation characterized by adherent blood and erythema was found in the gastric antrum. The examined duodenum was normal. Food was found in the lower third of the esophagus using tripod forceps and retrieval net. Removal of food was accomplished. The endoscope was removed, and an overtube with cap was fitted. The scope and overtube were then reinserted via the mouth and advanced to the esophagus to aid in foreign body removal. A small hiatal hernia was present. sliding hiatal hernia, no obvious stricture noted Impression: - Z-line variable. - Gastritis. - Normal examined duodenum. - Food in the lower third of the esophagus. Removal was successful. - Small hiatal hernia. - An overtube with cap was used to aid in foreign body removal. Recommendation: - Discharge patient to home. - Resume previous diet. - Continue present medications. Procedure Code(s): --- Professional --- 55672, Esophagogastroduodenoscopy, flexible, transoral; with removal of foreign body(s) Diagnosis Code(s): --- Professional --- K22.8, Other specified diseases of esophagus K29.70, Gastritis, unspecified, without bleeding T18.128A, Food in esophagus causing other injury, initial encounter K44.9, Diaphragmatic hernia without obstruction or gangrene T18.108A, Unspecified foreign body in esophagus causing other injury, initial encounter CPT copyright 2017 [employer]. All rights reserved. The codes documented in this report are preliminary and upon motor vehicle emissions inspector review may be revised to meet current compliance requirements. MD Maya Wallace MD 12/13/2021 2:01:27 PM This report has been signed electronically. Number of Addenda: 0 Note Initiated On: 12/13/2021 1:12 PM
--- NOTE | 2021-12-13 14:02 | OP.CCLET_ITS ---
12/13/2021 Augusta Hicks [address] [place] [address] Re : Upper GI endoscopy procedure for Mariella Nirmala Dear Dr. Hicks This procedure was performed on Monday, December 13, 2021. My impressions and recommendations are as follows: Impressions : - Z-line variable. - Gastritis. - Normal examined duodenum. - Food in the lower third of the esophagus. Removal was successful. - Small hiatal hernia. - An overtube with cap was used to aid in foreign body removal. Recommendations : - Discharge patient to home. - Resume previous diet. - Continue present medications. My findings are described in the full procedure note, which is enclosed. If I can be of further assistance, please feel free to contact me at Doctor phone number(s): , Work: . Sincerely, MD Maya Wallace MD 12/13/2021 2:01:27 PM This report has been signed electronically.
[2021-12-13] MEDS: Lactated Ringers 1,000 ML 15 ML IV (14:14)
[2021-12-13] MEDS: Ipratropium/Albuterol Sulfate 3 ML AMPUL.NEB INHALATION (14:27)
== END | disposition home or self-care (01) ==
LOC: ED 13:03 → AC 13:07
PROVIDERS: Emergency Provider Emergency Medicine; PCP Family Medicine; Visit Provider Surgery
PROC: 0DJ08ZZ Inspection of Upper Intestinal Tract, Via Natural or Artificial Opening Endoscopic (ICD-10-PCS; CPT 43235; principal; 2021-12-13 13:00)
DX: T18.128A Food in esophagus causing other injury, initial encounter (principal); J44.9 Chronic obstructive pulmonary disease, unspecified; R13.10 Dysphagia, unspecified; K44.9 Diaphragmatic hernia without obstruction or gangrene; F17.210 Nicotine dependence, cigarettes, uncomplicated; E78.5 Hyperlipidemia, unspecified; K29.70 Gastritis, unspecified, without bleeding; F32.A Depression, unspecified
CPT/HCPCS: 43247; 94640; 99282; J1610

== ENCOUNTER → 2022-04-07 | Outpatient (CLI) | payer MEDICARE, MEDICAID, SELFPAY ==
--- NOTE | 2022-04-07 10:52 | BI_ITS ---
MAMMOGRAPHY - BILATERAL SCREENING REASON FOR EXAM: Female, 76 years old. Routine annual screening examination. PERTINENT HISTORY: Personal history of breast cancer. Prior left lumpectomy with radiation therapy. TECHNIQUE: Digital bilateral breast gaston (3D mammographic acquisition) in the CC and MLO projections. 2-D mediolateral oblique (MLO) and craniocaudad (CC) views of both breasts were obtained. CAD: Full Field Digital Mammography with Computer Added Detection was performed. COMPARISON: Comparison is made with prior study dated 09/04/2021 and 04/02/2020. FINDINGS: Breast Composition: There are scattered areas of fibroglandular density. The patient is status post lumpectomy in the deep upper lateral aspect of the left breast. Since prior study, the postoperative site has increased in size measuring 1.8 cm x 1.7 cm. Correlation with ultrasound is recommended. Dystrophic calcifications are unchanged. No other significant abnormalities are identified. BI/SCRN MAMM (CAD)W/GASTON BILAT IMPRESSION: Status post lumpectomy in the deep upper lateral aspect of the left breast as described. Progressive increase in size of the nodular density at the operative site. Correlation with ultrasound is recommended. ASSESSMENT CATEGORY: BIRADS Category 0: Incomplete. Need additional imaging evaluation. A letter regarding these results will be sent to the patient by the facility within 30 days. Approximately 10% of breast cancers are not detected by mammography. A normal mammogram should not delay biopsy of a clinically suspicious abnormality. [id number] Electronically Signed: Chapito Zurita MD at 11:58 EST ,
== END | disposition home or self-care (01) ==
LOC: OPBI 10:50
PROVIDERS: PCP Family Medicine; Visit Provider Internal Medicine Medical Oncology
DX: Z12.31 Encounter for screening mammogram for malignant neoplasm of breast (principal); Z85.3 Personal history of malignant neoplasm of breast
CPT/HCPCS: 77063; 77067

== ENCOUNTER → 2022-04-08 | Outpatient (CLI) | payer MEDICARE, MEDICAID, SELFPAY ==
--- NOTE | 2022-04-08 12:51 | US_ITS ---
STUDY: ULTRASOUND BREAST - BILATERAL REASON FOR EXAM: Female, 76 years old. Abnormal screening mammogram. TECHNIQUE: Axial and longitudinal images of the BILATERAL breast were performed with a high resolution ultrasound transducer. # OF IMAGES: 17 COMPARISON: Comparison is made with prior mammogram dated 04/07/2022. FINDINGS: BILATERAL Breast: The lumpectomy site was visualized at the 2 o''clock position of the breast. This corresponds to the mammographic abnormality. Routine mammographic follow-up is recommended. US/Breast Limited Unilateral IMPRESSION: The mammographic abnormality corresponds to the postlumpectomy site with scarring. Routine mammographic follow-up is recommended. ASSESSMENT CATEGORY: BIRADS Category 2: Benign. A letter regarding these results will be sent to the patient by the facility within 30 days. Electronically Signed: Chapito Zurita MD at 15:38 EST ,
== END | disposition home or self-care (01) ==
LOC: OPUS 12:49
PROVIDERS: PCP Family Medicine; Visit Provider Internal Medicine Medical Oncology
DX: R92.8 Other abnormal and inconclusive findings on diagnostic imaging of breast (principal)
CPT/HCPCS: 76642

== ENCOUNTER → 2022-10-28 | Outpatient (CLI) | payer MEDICARE, SELFPAY ==
--- NOTE | 2022-10-28 | LES_PTH ---
PATIENT: ERINN EVERETT LOC: [facility] U#:[id number] AGE/SX: 77/F ROOM: RE10/28/[address]: Dr. Augusta Hicks DO : 1945 BED: DIS: 10/28/2022 SPEC #: [id number] RECD: 10/28/22 17:53 STATUS: TRICIA DANYELL #: [id number] YAS: 10/28/22 00:[address]: Augusta Hicks DEPT: SURGICAL PATHOLOGY RECD BY: Max Cabello Tissues: Temporal region Procedures: Surgery Specimen Level IV HEADER OPERATION: Excisional biopsy PRE-OP DIAGNOSIS: Basal cell CA TISSUE SUBMITTED: Left temporal region MICROSCOPIC DIAGNOSIS Skin lesion, left temporal region, shave biopsy: Seborrheic keratosis, mildly inflamed. Solar elastosis. AM:maco 11/01/2022 MICROSCOPIC DESCRIPTION Slides are reviewed. GROSS DESCRIPTION Received is one container labeled with the patient's name and not further designated. The specimen consists of a piece of skin measuring 0.8 x 0.7 x 0.2 cm. The specimen is inked, serially sectioned and submitted entirely in one cassette. / SJ:rg 10/29/2022 TC:5 CPT: 30852
== END | disposition home or self-care (01) ==
PROVIDERS: PCP Family Medicine; Referring Provider Family Medicine; Visit Provider Family Medicine
DX: L82.0 Inflamed seborrheic keratosis (principal); L57.8 Other skin changes due to chronic exposure to nonionizing radiation
CPT/HCPCS: 88305

== ENCOUNTER → 2022-11-04 | Outpatient (CLI) | payer MEDICARE, SELFPAY ==
[2022-11-04 15:07] LABS: Absolute Lymphocyte Count 1.29 X10^3/uL (0.83-4.51); Absolute Neutrophil Count 5.8 X10^3/uL (2.0-7.7); Basophil# 0.03 X10^3/uL; Basophil% 0.4 % (0-1); Eosinophil# 0.15 X10^3/uL; Eosinophils% 1.9 % (0-5); Hematocrit 43.6 % (37-47); Lymphocyte # 1.29 X10^3/ul (0.83-4.51); Mean Corp Hgb Conc 32.1 g/dL (32-36); Mean Corpuscular Hgb 31.2 pg (27.0-32.0); Mean Corpuscular Volume 97.1 fL (81-99); Mean Platelet Vol. 10.3 fl (6.2-12.0); Monocyte# 0.79 X10^3/uL; Monocyte% 9.8 % (0-10); NRBC Flagged by Analyzer 0 % (0-5); Neutrophil # 5.76 X10^3/uL (2.7-7.7); Neutrophil % 71.7 % (47-70); Platelet Count 260 K/mm3 (150-450); RBC Distribution Width CV 13.5 % (11.6-14.6); RBC Distribution Width SD 48.5 fl (35.1-43.9); Red Blood Count 4.49 M/mm3 (4.2-5.4)
[2022-11-04 15:16] LABS: ALB/GLOB Ratio 0.9 RATIO (0.9-2.4); AST(SGOT) 22 U/L (15-37); Alanine Aminotransfer ALT/SGPT 24 U/L (13-56); Albumin, Serum 3.5 g/dL (3.2-5.0); Alkaline Phosphatase 61 U/L (45-117); Anion Gap 6 (5-15); BUN 26 mg/dL (7-18); BUN/Creat Ratio 17.4 RATIO (10-20); CRP 7.73 mg/L (0.0-3.0); Calcium,Total 8.8 mg/dL (8.5-10.1); Chloride 107 mmol/L (98-107); Creatinine, Serum 1.49 mg/dL (0.55-1.02); EST Glomerular Filtration Rate 36 mL/min (>60); Est Glom Filt Rate - Afr Amer 44 mL/min (>60); Globulin 3.7 g/dL (2.2-4.2); Glucose 83 mg/dL (74-106); Lipase 34 U/L (13-75); Magnesium 2.4 mg/dL (1.6-2.6); Potassium 4.6 mmol/L (3.5-5.1); Protein, Total 7.2 g/dL (6.4-8.2); Sodium Level 138 mmol/L (136-145)
[2022-11-04 15:44] LABS: Erythrocyte Sedimentation Rate 21 mm/hr (0-30)
== END | disposition home or self-care (01) ==
LOC: BFHLAB 11:42
PROVIDERS: PCP Family Medicine; Visit Provider Family Medicine
DX: R11.2 Nausea with vomiting, unspecified (principal); R19.7 Diarrhea, unspecified; R30.0 Dysuria
CPT/HCPCS: 36415; 80053; 83690; 83735; 85025; 85652; 86140; 87077; 87086; 87088; 87186

== ENCOUNTER → 2023-04-12 | Outpatient (CLI) | payer MEDICARE, SELFPAY ==
--- NOTE | 2023-04-12 14:06 | BI_ITS ---
MAMMOGRAPHY - BILATERAL SCREENING REASON FOR EXAM: Female, 77 years old. Routine annual screening examination. PERTINENT HISTORY: Personal history of breast cancer. Prior left lumpectomy and radiation. Sister with breast cancer. Mother with breast cancer. TECHNIQUE: Digital bilateral breast gaston (3D mammographic acquisition) in the CC and MLO projections. 2-D mediolateral oblique (MLO) and craniocaudad (CC) views of both breasts were obtained. CAD: Full Field Digital Mammography with Computer Added Detection was performed. COMPARISON: Comparison is made with prior study dated October 05, 2022 and April 06, 2021. FINDINGS: Breast Composition: There are scattered areas of fibroglandular density. Once again, the patient is status post lumpectomy in the deep upper outer aspect of the left breast. Persistent 2 cm x 1.7 cm partially calcified nodule at the operative site. No other significant abnormalities are identified. There has been no significant change since the prior study. BI/SCRN MAMM (CAD)W/GASTON BILAT IMPRESSION: Stable bilateral screening mammogram. Yearly follow-up mammogram recommended. (A) ASSESSMENT CATEGORY: BIRADS Category 2: Benign. A letter regarding these results will be sent to the patient by the facility within 30 days. Approximately 10% of breast cancers are not detected by mammography. A normal mammogram should not delay biopsy of a clinically suspicious abnormality. [id number] Electronically Signed: Chapito Zurita MD at 8:53 EST ,
== END | disposition home or self-care (01) ==
LOC: OPBI 14:05
PROVIDERS: PCP Family Medicine; Referring Provider Internal Medicine Medical Oncology; Visit Provider Internal Medicine Medical Oncology
DX: Z12.31 Encounter for screening mammogram for malignant neoplasm of breast (principal); Z85.3 Personal history of malignant neoplasm of breast; Z80.3 Family history of malignant neoplasm of breast
CPT/HCPCS: 77063; 77067

== ENCOUNTER 2024-02-28 13:39 | Emergency (ER) | payer MEDICARE, MEDICAID, SELFPAY ==
[2024-02-28 13:41] VITALS: BP 104/83; PULSE 98; RESP 16; TEMP 36.9; O2SAT 93; BMI 25.7
--- NOTE | 2024-02-28 15:38 | CT_ITS ---
STUDY: CT SOFT TISSUE NECK WITH CONTRAST REASON FOR EXAM: Female, 78 years old. Enlarged parotid gland with fever and chills RADIATION DOSAGE (If Supplied By Facility): CTDIvol = ( 14.55 ) mGy, DLP = ( 447.25 ) mGycm TECHNIQUE: The patient was scanned in a multi-detector CT scanner. High resolution transaxial imaging was performed following intravenous administration of IV 75mL Isovue-370. Sagittal and coronal images were reconstructed. Individualized dose optimization techniques were used for this CT. COMPARISON: None. FINDINGS: There is mild diffuse swelling of the right parotid with hyperemia and inflammatory stranding in the adjacent fat. Within the superficial lobe, there is a thick-walled fluid density nodule measuring 1.9 x 1.88 x 2.31 centimeters possibly representing infected cyst or abscess although there are no air bubbles observed at this time. Normal bilateral laundry clerk spaces. Normal bilateral parapharyngeal spaces. Normal bilateral carotid spaces. Normal bilateral sublingual and submandibular glands and spaces. Normal visualized nasopharynx. Normal retropharyngeal space. Normal perivertebral space. Normal visualized bilateral faucial tonsils. The visualized tongue, tongue base and oropharynx are normal. The visualized cervical lymph nodes (levels I-) are within normal size limits, and maintain normal morphology. There is no demonstrated solid or cystic mass lesion. There is no abnormal contrast enhancement. Normal epiglottis, bilateral vallecula and hypopharynx. The pre-epiglottic and paraglottic adipose spaces are normal. Normal visualized bilateral piriform sinuses, aryepiglottic folds, vocal cords, and arytenoid-cricoid articulations. Normal subglottic trachea. There are tiny hypoattenuated nodules within the thyroid gland bilaterally. Normal visualized pulmonary apices. Normal visualized paranasal sinuses. Normal visualized cervical spine. CT/Soft Tissue Neck WITH Contrast IMPRESSION: Findings consistent with right-sided parotitis and possible abscess of the superficial lobe. Sonographic guided fine-needle aspiration would be useful for further evaluation if indicated. Tiny hypoattenuated nodules within both lobes of thyroid which may be further assessed sonographically on a nonemergent basis Electronically Signed: Melvin Gonzalez MD at 17:44 EST Reading Location ID and State: [facility] / [place] Tel , Service support ,
--- NOTE | 2024-02-28 15:42 | EX.ED.DYSGE1 ---
HPI History of Present Illness Chief Complaint: Edema Detail of Chief Complaint: Facial swelling and pain that started yesterday Informant: patient Onset/Context/Timing Onset: Yesterday Context: Sudden Onset Timing: Continuous Quality: Pain Location: Right parotid gland Current Severity: Mild Maximum Severity: Severe Worsened by: Palpation Relieved by: Nothing Associated Symptoms Associated Symptoms: generalized weakness yesterday Narrative Narrative: Patient is a 78-year-old woman. She presents because of swelling of her face/neck on the right side. This was noted yesterday. She complains of pain. She does report subjective fever and chills. She denies trouble eating. She did have generalized weakness and was unable to get out of bed yesterday. She presents because of pain. 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 She has persistent deficits. She denies difficulty swallowing. She denies change in voice. She denies cardiac or respiratory symptoms. She denies weight loss or weight gain. Prior similar symptoms: No Recent Illness/Hospitalization: No PFSH PFSH Medical History Wears dentures Gastric reflux Shortness of breath on exertion Chronic cough Smoker Leg cramps History of stress test COPD (chronic obstructive pulmonary disease) COPD exacerbation History of left breast cancer Bladder incontinence Vitamin D deficiency IBS (irritable bowel syndrome) Hyperlipidemia GERD (gastroesophageal reflux disease) Depression Arthritis Skin cancer Cervical cancer Tobacco abuse Osteopenia Personal history of malignant neoplasm of breast Osteoarthritis Home Medications ?Medication ?Instructions ?Recorded ?Last Taken ?Type albuterol sulfate 90 mcg/actuation 2 puff inhalation Q4H PRN PRN Sob 01/29/21 Unknown History aerosol inhaler &/Or Wheezing nebulizer amlodipine 5 mg tablet ea PO 04/13/22 Unknown History acetaminophen 300 mg-codeine 60 mg tab PO BID 10/12/22 Unknown History tablet artificial tears with lanolin eye 1 applic LEFT EYE BID PRN 10/12/22 Unknown History ointment docusate sodium 100 mg capsule 100 mg PO DAILY 10/12/22 Unknown History (Stool Softener) amoxicillin 875 mg-potassium 875 mg PO Q12H #20 TABLETS 02/28/24 Unknown Rx clavulanate 125 mg tablet hydrocodone-acetaminophen 5-325mg 1 tab PO Q6H PRN PRN Pain 3 days 02/28/24 Unknown Rx 5mg-325mg #10 TABLETS Allergy/AdvReac Type Severity Reaction Status Date / Time ibuprofen AdvReac Nausea/Vom/ Verified 02/28/24 13:45 Diarrhea Family History Father Emphysema Heart disease Mother Seizures Breast cancer Surgical History History of esophagogastroduodenoscopy (EGD) (~02/2021) History of colonoscopy (~02/2021) History of lumpectomy History of knee replacement H/O: hysterectomy S/P cholecystectomy Social History (Updated 02/28/24 @ 15:[address] eDnis Cid MD) household members: none Smoking Status: Current every day smoker tobacco type: cigarettes ROS ROS ED Constitutional Constitutional ED: Reports chills, fever(s) and subjective; Denies sweats Eyes Eyes: Denies blurry vision, change in vision or diplopia ENT ENT ED: Denies ear pain or rhinorrhea Cardiovascular Cardiovascular: Denies chest pain or palpitations Respiratory/Chest Respiratory/Chest: Denies cough, dyspnea or dyspnea on exertion Gastrointestinal Gastrointestinal: Denies abdominal pain, nausea or vomiting Genitourinary Genitourinary ED: Denies dysuria, hematuria or urinary frequency Musculoskeletal Musculoskeletal: Denies arthralgias or myalgias Integumentary Denies rash Neurologic Neurologic: Reports weakness; Denies headache(s) or paresthesias Psychiatric Psychiatric: Denies anxiety or depression Hematologic/Lymphatic Hematologic/Lymphatic: Reports systems reviewed and no addt'l complaints, except as documented EXAM Physical Exam Const Vital Signs: 02/28/24 13:41 02/28/24 14:57 02/28/24 15:46 Temperature 98.4 F Temperature Source Temporal Pulse Rate 98 79 Respiratory Rate 16 20 H Respiratory Effort Normal Respiratory Pattern Normal Blood Pressure 104/83 H Blood Pressure Mean 90 Pulse Ox 93 97 Oxygen Delivery Method Room Air Room Air 02/28/24 18:03 Temperature Temperature Source Pulse Rate 85 Respiratory Rate 22 H Respiratory Effort Respiratory Pattern Blood Pressure 122/78 H Blood Pressure Mean 92 Pulse Ox 96 Oxygen Delivery Method Room Air Positive well nourished and well developed General Appearance ED: well developed and NAD; Negative for cyanotic, diaphoretic or pallor HEENT Reports dry mucous membranes HEENT Narrative: Patient has swollen tender right parotid gland. There is no drainage noted from statins duct with palpation/pressure over the parotid gland. Trachea is midline. There is no inspiratory stridor. There is no dysphonia. Patient does have weakness left side secondary to Moss's palsy. Mouth ED: Yes dry mucous membranes Mouth: dry mucous membranes Eyes PERRL and EOMs intact bilaterally General Eye ED: Negative for pale conjunctiva or scleral icterus Neck no lymphadenopathy, supple and no JVD Chest Wall inspection of chest normal Resp normal respiratory effort and clear to auscultation bilaterally Cardio regular rate, regular rhythm, S1 normal heart sound, S2 normal heart sound and no murmurs GI normal to inspection, nondistended, normoactive bowel sounds, non-tender, non-distended and no masses; Negative for hepatosplenomegaly Extremity normal to inspection General Extremety ED: Negative for edema or tenderness General Extremity: Negative for edema Neuro oriented x3 and CN's II-XII intact bilaterally Sensorium / Orientation: alert Psych mental status grossly normal Skin no rashes or lesions noted, no wounds and skin turgor normal General Skin Exam: Negative for jaundice or pallor MDM MDM MDM Narrative Medical decision making narrative: Patient with enlarged parotid gland this may be due to an obstructing stone, infection versus tumor. Blood work was obtained as well as CT soft tissue neck with IV contrast. After images have been obtained and reviewed we will contact ENT, Dr. Alfredo Patrick Lab Data Labs: Laboratory Results - last 24 hr 02/28/24 15:50 WBC 10.9 RBC 4.74 Hgb 14.6 Hct 44.9 MCV 94.7 MCH 30.8 MCHC 32.5 RDW Std Deviation 45.2 H RDW Coeff of Nahed 12.8 Plt Count 258 MPV 9.7 Immature Gran % (Auto) 0.300 Neut % (Auto) 75.7 H Lymph % (Auto) 14.1 L [place] % (Auto) 9.4 Eos % (Auto) 0.2 Baso % (Auto) 0.3 Absolute Neuts (auto) 8.3 H Absolute Lymphs (auto) 1.53 Nucleated RBC % 0 Sodium 138 Potassium 4.5 Chloride 104 Carbon Dioxide 27.0 Anion Gap 6 BUN 24 H Creatinine 1.49 H Estim Creat Clear Calc 27.92 Est GFR (MDRD) Af Amer 43 L Est GFR (MDRD) Non-Af 36 L BUN/Creatinine Ratio 16.1 Glucose 100 Calcium 9.2 I was informed that Dr. Alfredo Moon is not on-call for ENT no doc. In light of this we will have patient discharged to home with antibiotics. Have her call the office. This decision was made since she is not febrile and has a normal white count. Radiography Diagnostic Testing: Clinical Impression(s) from Imaging Studies Soft Tissue Neck CT 02/28/24 15:38 IMPRESSION: Findings consistent with right-sided parotitis and possible abscess of the superficial lobe. Sonographic guided fine-needle aspiration would be useful for further evaluation if indicated. Tiny hypoattenuated nodules within both lobes of thyroid which may be further assessed sonographically on a nonemergent basis Electronically Signed: Melvin Gonzalez MD at 17:44 EST Reading Location ID and State: [address] [place] [address] Tel , Service support , Discharge Plan Triage Chief Complaint: Edema ED Provider: Denis Cid Dx/Rx/DC Orders Clinical Impression: Acute suppurative parotitis, Personal history of malignant neoplasm of breast, Abscess of parotid gland Instructions: ED Salivary Gland Infection Prescriptions: New hydrocodone-acetaminophen 5-325 mg tablet 1 tab PO Q6H PRN PRN (Reason: Pain) 3 Days Qty: 10 0RF amoxicillin-pot clavulanate 875-125 mg tablet 875 mg PO Q12H Qty: 20 0RF No Action amlodipine 5 mg tablet PO Patient Comments: TAKE 1 TABLET BY MOUTH ONCE DAILY IN THE EVENING docusate sodium [Stool Softener] 100 mg capsule 100 mg PO DAILY acetaminophen-codeine 300-60 mg tablet PO BID Patient Comments: TAKE 1 TABLET BY MOUTH EVERY 6 HOURS NEEDED artificial tears with lanolin Ointment 1 applic LEFT EYE BID PRN albuterol sulfate 1 PUFF HFA aerosol inhaler 2 puff inhalation Q4H PRN PRN (Reason: Sob &/Or Wheezing nebulizer) Primary Care Provider: Augusta Hicks Referrals: Alfredo Moon MD [Med Staff - Active Staff] - As soon as possible Augusta Hicks DO [Primary Care Provider] - Print Language: [place]raltarian Disposition Disposition: Home, Self Care
[2024-02-28 15:46] VITALS: PULSE 79; RESP 20; O2SAT 97
[2024-02-28 16:20] LABS: Absolute Lymphocyte Count 1.53 X10^3/uL (0.83-4.51); Absolute Neutrophil Count 8.3 X10^3/uL (2.0-7.7); Basophil# 0.03 X10^3/uL; Basophil% 0.3 % (0-1); Eosinophil# 0.02 X10^3/uL; Eosinophils% 0.2 % (0-5); Hematocrit 44.9 % (37-47); Hemoglobin 14.6 g/dL (12.0-15.0); Lymphocyte # 1.53 X10^3/ul (0.83-4.51); Lymphocyte % 14.1 % (19-41); Mean Corp Hgb Conc 32.5 g/dL (32-36); Mean Corpuscular Hgb 30.8 pg (27.0-32.0); Mean Corpuscular Volume 94.7 fL (81-99); Mean Platelet Vol. 9.7 fl (6.2-12.0); Monocyte# 1.02 X10^3/uL; Monocyte% 9.4 % (0-10); NRBC Flagged by Analyzer 0 % (0-5); Neutrophil # 8.25 X10^3/uL (2.7-7.7); Neutrophil % 75.7 % (47-70); Platelet Count 258 K/mm3 (150-450); RBC Distribution Width CV 12.8 % (11.6-14.6); RBC Distribution Width SD 45.2 fl (35.1-43.9); Red Blood Count 4.74 M/mm3 (4.2-5.4); White Blood Count 10.9 K/mm3 (4.4-11.0)
[2024-02-28 16:36] LABS: Anion Gap 6 (5-15); BUN 24 mg/dL (7-18); BUN/Creat Ratio 16.1 RATIO (10-20); Calcium,Total 9.2 mg/dL (8.5-10.1); Chloride 104 mmol/L (98-107); Creatinine, Serum 1.49 mg/dL (0.55-1.02); EST Glomerular Filtration Rate 36 mL/min (>60); Est Glom Filt Rate - Afr Amer 43 mL/min (>60); Estimated Creatinine Clearance 27.92 ml/min; Glucose 100 mg/dL (74-106); Potassium 4.5 mmol/L (3.5-5.1); Sodium Level 138 mmol/L (136-145)
[2024-02-28 18:03] VITALS: BP 122/78; PULSE 85; RESP 22; O2SAT 96
[2024-02-28] MEDS: Ampicillin/Sulbactam 3 GM in 0.9% Normal Saline (100mL MB+) 100 ML IV (21:28)
[2024-02-28 21:43] VITALS: BP 124/74; PULSE 81; RESP 20; TEMP 36.7; O2SAT 96
== END 2024-02-28 22:29 | disposition home or self-care (01) ==
PROVIDERS: Emergency Provider Emergency Medicine; PCP Family Medicine; Visit Provider Emergency Medicine
DX: K11.3 Abscess of salivary gland (principal); J44.9 Chronic obstructive pulmonary disease, unspecified; K11.21 Acute sialoadenitis; E78.5 Hyperlipidemia, unspecified; K21.9 Gastro-esophageal reflux disease without esophagitis; F17.210 Nicotine dependence, cigarettes, uncomplicated; Z79.899 Other long term (current) drug therapy; Z85.3 Personal history of malignant neoplasm of breast
CPT/HCPCS: 70491; 80048; 85025; 96365; 99284; J7040; Q9967; A4216; J0295

== ENCOUNTER → 2024-06-01 | Outpatient (CLI) | payer MEDICARE, MEDICAID, SELFPAY ==
--- NOTE | 2024-06-01 11:51 | BI_ITS ---
PROCEDURE: SCRN MAMM (CAD)W/GASTON BILAT REASON FOR EXAM: F, Age 78 y/o, presents for annual screening mammogram. Personal history of left breast cancer status post lumpectomy and radiation in 2013. Family history of breast cancer in her mother, sister and maternal great aunts. TECHNIQUE: Bilateral screening digital breast tomosynthesis with 2D and 3D images. Computer aided detection. COMPARISON: 04/12/2023 FINDINGS: There are scattered areas of fibroglandular density. Postsurgical changes are seen in the upper-outer left breast at posterior depth. No suspicious masses, areas of developing architectural distortion, or suspicious calcifications in either breast. BI/SCRN MAMM (CAD)W/GASTON BILAT IMPRESSION: There is no mammographic evidence of malignancy. BI-RADS 2: BENIGN. RECOMMEND ANNUAL MAMMOGRAPHIC SCREENING. Follow-up code: Routine Follow-up The patient will be notified of the results by letter. Reading Location: [id number]
== END | disposition home or self-care (01) ==
LOC: OPBI 11:49
PROVIDERS: PCP Family Medicine; Referring Provider Family Medicine; Visit Provider Family Medicine
DX: Z12.31 Encounter for screening mammogram for malignant neoplasm of breast (principal); Z80.3 Family history of malignant neoplasm of breast
CPT/HCPCS: 77063; 77067

== ENCOUNTER 2024-06-12 10:08 | Inpatient (IN) | payer MEDICARE, MEDICAID, SELFPAY ==
[2024-06-12] VITALS (15 sets, daily range): BP systolic 100–130; BP diastolic 47–77; PULSE 86–97; RESP 13–20; TEMP 36.6–37.2; O2SAT 91–954; BMI 24.7
--- NOTE | 2024-06-12 10:31 | RAD_ITS ---
PROCEDURE: CHEST PA AND LATERAL REASON FOR EXAM: SOB Increased weakness TECHNIQUE: Frontal and lateral views of the chest. COMPARISON: None. FINDINGS: EKG electrodes are seen. The lungs are clear. Degenerative changes of the thoracic vertebrae. No acute abnormality is seen. RAD/Chest PA and Lateral IMPRESSION: No acute abnormality is seen. Reading Location: [place] [address]
--- NOTE | 2024-06-12 10:32 | EKG12_ITS ---
Test Reason : WEAKNESS Blood Pressure : */* mmHG Vent. Rate : 94 BPM Atrial Rate : 94 BPM P-R Int : 150 ms QRS Dur : 126 ms QT Int : 372 ms P-R-T Axes : 43 262 16 degrees QTcB Int : 465 ms Normal sinus rhythm Right bundle branch block Inferior infarct , age undetermined Anterolateral infarct , age undetermined Abnormal ECG Confirmed by BRIAN ROOT, ANDER ([id number]), medical transcription editor BERNARDA ABDI ([id number]) on 06/18/2024 11:15:49 AM Referred By: BB/TB Confirmed By: ANDER TORRES MD
--- NOTE | 2024-06-12 10:42 | EX.ED.DYSGE1 ---
HPI History of Present Illness Chief Complaint: Weakness Narrative Narrative: Patient is a 78-year-old female with a past medical history of COPD not chronically on oxygen, IBS, GERD, depression who presented to the emergency department with a chief complaint of shortness of breath and not feeling well. Patient states that yesterday she started feeling generally unwell having some shortness of breath and weakness. Per EMS she was noted to be 88% on room air and was wheezing. Patient denies any sick contacts. [facility] Medical History (Updated 06/12/24 @ 13:[address] Gonzalo Ahumada DO) CKD stage 3b, GFR 30-44 ml/min Wears dentures Gastric reflux Shortness of breath on exertion Chronic cough Smoker Leg cramps History of stress test COPD (chronic obstructive pulmonary disease) COPD exacerbation History of left breast cancer Bladder incontinence Vitamin D deficiency IBS (irritable bowel syndrome) Hyperlipidemia GERD (gastroesophageal reflux disease) Depression Arthritis Skin cancer Cervical cancer Tobacco abuse Osteopenia Personal history of malignant neoplasm of breast Osteoarthritis Home Medications ?Medication ?Instructions ?Recorded ?Last Taken ?Type albuterol sulfate 90 mcg/actuation 2 puff inhalation Q4H PRN Sob &/Or 01/29/21 Unknown History aerosol inhaler Wheezing acetaminophen 300 mg-codeine 60 mg 1 tab PO Q6H PRN pain 10/12/22 Unknown History tablet docusate sodium 100 mg capsule 100 mg PO DAILY 10/12/22 06/11/24 History (Stool Softener) amlodipine 10 mg tablet 10 mg PO DAILY blood pressure 06/12/24 06/11/24 History gabapentin 100 mg capsule 100 mg PO BID pain 06/12/24 06/11/24 History hydrocodone-acetaminophen 5-325mg 1 tab PO Q6H PRN Pain 06/12/24 Unknown History 5mg-325mg metoclopramide HCl 5 mg tablet 5 mg PO BID 06/12/24 06/11/24 History Allergy/AdvReac Type Severity Reaction Status Date / Time ibuprofen AdvReac Nausea/Vom/ Verified 06/12/24 10:15 Diarrhea Family History Father Emphysema Heart disease Mother Seizures Breast cancer Surgical History History of esophagogastroduodenoscopy (EGD) (~02/2021) History of colonoscopy (~02/2021) History of lumpectomy History of knee replacement H/O: hysterectomy S/P cholecystectomy Social History household members: none Smoking Status: Heavy Smoker (>10/day) ROS ROS ED ROS Narrative Constitutional: Denies fevers, chills, headaches, lightness, dizziness Cardiovascular: Denies chest pain or palpitations Respiratory: Complains of cough and shortness of breath but denies sputum production Abdomen: Denies abdominal pain nausea vomit diarrhea : Denies any urinary symptoms Neurological: Denies numbness, weakness, tingling Musculoskeletal: Denies back pain Skin: Denies rashes or lesions EXAM Physical Exam Narrative Exam Narrative: General: Patient was lying in bed rest comfortably did not appear to be in acute distress Head: Atraumatic, normocephalic Eyes: PERRL bilaterally, EOMI bilaterally, no conjunctival injection noted Neck: Soft, supple, trachea midline Cardiovascular: Regular rate and rhythm no murmurs gallops rubs noted Respiratory: Patient has diffuse end expiratory wheezing noted bilaterally Abdomen: Soft, nondistended, no tenderness palpation Extremities: +5/5 strength noted in the bilateral upper and lower extremities radial pulses +2/4 in the bilateral per extremities Neurological: Patient following commands knew that she was at [facility] the year is 2024 Skin: Warm, dry, intact no rashes or lesions noted Const Vital Signs: 06/12/24 10:09 06/12/24 10:14 06/12/24 10:17 Temperature 99 F 99 F Temperature Source Oral Oral Pulse Rate 94 94 Respiratory Rate 13 19 H Respiratory Effort Short of Breath Respiratory Depth Respiratory Pattern Normal Blood Pressure 121/64 H 130/67 H Blood Pressure Mean 83 88 Pulse Ox 94 95 Oxygen Delivery Method Nasal Cannula Nasal Cannula Oxygen Flow Rate (L/min) 2 2 06/12/24 10:18 06/12/24 10:32 06/12/24 10:47 Temperature Temperature Source Pulse Rate 94 Respiratory Rate 16 Respiratory Effort Normal Short of Breath Respiratory Depth Normal Respiratory Pattern Normal Blood Pressure Blood Pressure Mean Pulse Ox 94 Oxygen Delivery Method Nasal Cannula Nasal Cannula Oxygen Flow Rate (L/min) 2 2 06/12/24 11:14 06/12/24 12:00 06/12/24 13:00 Temperature 98 F 98 F 98 F Temperature Source Oral Oral Oral Pulse Rate 96 89 86 Respiratory Rate 17 14 14 Respiratory Effort Respiratory Depth Respiratory Pattern Blood Pressure 100/59 L 118/58 L 106/58 L Blood Pressure Mean 72 78 72 Pulse Ox 954 98 99 Oxygen Delivery Method Nasal Cannula Nasal Cannula Nasal Cannula Oxygen Flow Rate (L/min) 2 2 2 MDM MDM MDM Narrative Medical decision making narrative: Patient is a 78-year-old female who presented to the emergency department the chief complaint of generalized weakness not feeling well, shortness of breath and cough. On the differential diagnose includes but not limited to influenza, COVID, pneumonia, COPD exacerbation secondary to other viral etiology, ACS, electrolyte abnormality. Once workup is obtained and reviewed she will be reevaluated. Patient be given 30 cc/kg bolus of IV fluids which was ordered around 10:45 AM. Patient be given 3 DuoNebs and Solu-Medrol.. Patient's CBC was largely unremarkable no evidence leukocytosis white blood count normal 8.5, he was 13.5, platelet count was noted be 235. Patient sodium normal 136, potassium normal 4.3, creatinine was 1.24 she has underlying chronic kidney disease based on previous blood draws, lactic acid less than 1. Patient troponin was noted be 22 delta troponin pending. Patient's EKG was reviewed showed sinus rhythm with a rate of 94 bpm with evidence of right bundle branch block. This was compared to EKG from 03/05/2020 which showed evidence of incomplete right bundle branch block at that point in time. Patient's urinalysis revealed 500 leukocyte esterase positive nitrites 50-100 white cells with 2+ bacteria indicating urinary tract infection she will be given gram Rocephin this was sent for culture. Patient tested positive for influenza A. Patient's x-ray of her chest reviewed by myself and by radiology showed no acute cardiopulmonary processes. At this point in time will discuss case with hospitalist for admission for COPD exacerbation in the setting of influenza. Discussed case with hospitalist Dr. Bowden who accept patient for admission. She is requesting Tamiflu which was ordered. Patient notified all question concerns answered. Lab Data Labs: Laboratory Results - last 24 hr 06/12/24 06/12/24 06/12/24 10:45 11:38 12:49 WBC 8.5 RBC 4.37 Hgb 13.5 Hct 40.4 MCV 92.4 MCH 30.9 MCHC 33.4 RDW Std Deviation 48.0 H RDW Coeff of Nahed 14.0 Plt Count 235 MPV 9.3 Immature Gran % (Auto) 0.400 Neut % (Auto) 80.1 H Lymph % (Auto) 5.[address] % (Auto) 11.4 H Eos % (Auto) 1.6 Baso % (Auto) 0.6 Absolute Neuts (auto) 6.9 Absolute Lymphs (auto) 0.50 L Nucleated RBC % 0 PT 13.1 INR 1.0 APTT 26.7 Sodium 136 Potassium 4.3 Chloride 102 Carbon Dioxide 21.9 Anion Gap 13 BUN 21 H Creatinine 1.24 H Est GFR (MDRD) Non-Af 44 L BUN/Creatinine Ratio 16.9 Glucose 108 H Lactic Acid < 1.0 Calcium 9.2 Total Bilirubin 0.46 AST 23 ALT 17 Alkaline Phosphatase 69 Troponin T High Sens 22 H Troponin T Hi Sens 2 Hr 18 H Total Protein 6.9 Albumin 4.1 Globulin 2.7 Albumin/Globulin Ratio 1.5 Urine Color Yellow Urine Clarity Cloudy Urine pH 6.0 Ur Specific [place] 1.010 Urine Protein 15 H Urine Glucose (UA) Normal Urine Ketones Negative Urine Occult Blood 10 H Urine Nitrite Positive H Urine Bilirubin Negative Urine Urobilinogen Normal Ur Leukocyte Esterase 500 H Urine RBC 0-5 SEEN Urine WBC 50-100 SEEN Ur Squamous Epith Cells 0-5 SEEN Urine Bacteria 2+ Urine Mucus 0 SEEN Radiography Diagnostic Testing: Clinical Impression(s) from Imaging Studies Chest X-Ray 06/12/24 10:31 IMPRESSION: No acute abnormality is seen. Reading Location: [place] [id number] Discharge Plan Triage Chief Complaint: Weakness Other Complaint: Shortness of Breath ED Provider: Gonzalo Ahumada Dx/Rx/DC Orders Clinical Impression: Acute hypoxic respiratory failure, COPD exacerbation, Influenza A Prescriptions: No Action docusate sodium [Stool Softener] 100 mg capsule 100 mg PO DAILY acetaminophen-codeine 300-60 mg tablet 1 tab PO Q6H PRN (Reason: pain) Patient Comments: TAKES FROM [facility] albuterol sulfate 1 PUFF HFA aerosol inhaler 2 puff inhalation Q4H PRN (Reason: Sob &/Or Wheezing) amlodipine 10 mg tablet 10 mg PO DAILY metoclopramide HCl 5 mg tablet 5 mg PO BID gabapentin 100 mg capsule 100 mg PO BID hydrocodone-acetaminophen 5-325 mg tablet 1 tab PO Q6H PRN (Reason: Pain) Patient Comments: TAKES FROM TYLENOL #4 Primary Care Provider: Augusta Hicks Referrals: Augusta Hicks DO [Primary Care Provider] - Print Language: [place] Island[place] Disposition Disposition: Acute Care Hospital [facility]
[2024-06-12] MEDS: MethylPREDNISolone 125 MG/2 ML Vial IV (10:49)
[2024-06-12] MEDS: Ipratropium/Albuterol Sulfate 3 ML AMPUL.NEB INHALATION ×5 (10:49→23:06)
[2024-06-12] MEDS: 0.9% Normal Saline (1000mL) 1,000 ML 999 ML IV ×2 (10:50→12:10)
[2024-06-12 10:55] LABS: Absolute Neutrophil Count 6.9 X10^3/uL (2.0-7.7); Basophil# 0.05 X10^3/uL; Basophil% 0.6 % (0-1); Eosinophil# 0.14 X10^3/uL; Eosinophils% 1.6 % (0-5); Hematocrit 40.4 % (37-47); Hemoglobin 13.5 g/dL (12.0-15.0); Lymphocyte % 5.9 % (19-41); Mean Corp Hgb Conc 33.4 g/dL (32-36); Mean Corpuscular Hgb 30.9 pg (27.0-32.0); Mean Corpuscular Volume 92.4 fL (81-99); Mean Platelet Vol. 9.3 fl (6.2-12.0); Monocyte# 0.97 X10^3/uL; Monocyte% 11.4 % (0-10); NRBC Flagged by Analyzer 0 % (0-5); Neutrophil # 6.85 X10^3/uL (2.7-7.7); Neutrophil % 80.1 % (47-70); POSITIVE DIFFERENTIAL YES; Platelet Count 235 K/mm3 (150-450); Red Blood Count 4.37 M/mm3 (4.2-5.4); White Blood Count 8.5 K/mm3 (4.4-11.0)
[2024-06-12 11:06] LABS: Partial Thromboplast Time 26.7 Seconds (24.1-36.2)
[2024-06-12 11:09] LABS: Prothrombin Time (Protime)PT. 13.1 SECONDS (11.7-14.9)
[2024-06-12 11:21] LABS: Troponin T High Sensitivity 22 ng/L (<=14)
[2024-06-12 11:26] LABS: ALB/GLOB Ratio 1.5 RATIO (0.9-2.4); AST(SGOT) 23 U/L (<=31); Alanine Aminotransfer ALT/SGPT 17 U/L (<=34); Albumin, Serum 4.1 g/dL (3.4-4.8); Alkaline Phosphatase 69 U/L (35-104); Anion Gap 13 (5-15); BUN 21 mg/dL (4-19); BUN/Creat Ratio 16.9 RATIO (10-20); Calcium,Total 9.2 mg/dL (7.6-11.0); Carbon Dioxide 21.9 mmol/L (21.0-32.0); Chloride 102 mmol/L (98-108); Creatinine, Serum 1.24 mg/dL (0.70-1.20); EST Glomerular Filtration Rate 44 (>60); Globulin 2.7 g/dL (2.2-4.2); Glucose 108 mg/dL (70-99); Potassium 4.3 mmol/L (3.3-5.1); Protein, Total 6.9 g/dL (5.9-8.4); Sodium Level 136 mmol/L (133-145); Total Bilirubin 0.46 mg/dL (0.00-1.30)
[2024-06-12 11:43] LABS: Lactic Acid < 1.0 mmol/L (0.0-2.0)
[2024-06-12 11:47] LABS: Mucous, Urine 0 SEEN /hpf (<or=2+)
[2024-06-12 11:49] LABS: Color, Urine Yellow (Yellow); Glucose, Dipstick Normal (Normal); Ketone-Dipstick Negative (Negative); Leukocyte Esterase-Dipstick 500 /ul (Negative); Nitrite-Dipstick Positive (Negative); Occult Blood-Urine 10 /ul (Negative); Protein-Dipstick 15 mg/dl (Negative); Urine Bilirubin Dipstick Negative (Negative); Urine Clarity Cloudy (Clear); Urine Urobilinogen Normal (Normal)
[2024-06-12 12:01] LABS: Bacteria 2+ /hpf (None Seen); Red Blood Cells-Urine 0-5 SEEN /hpf (0-5); Squamous Epithelial Cells - UA 0-5 SEEN /hpf (5-10); White Blood Cells 50-100 SEEN /hpf (0-5)
[2024-06-12] MEDS: Ceftriaxone 1 GM/50 ML BAG IV (12:40)
[2024-06-12 13:33] LABS: Troponin T High Sens 2 HR 18 ng/L (<=14)
--- NOTE | 2024-06-12 13:44 | PCM.HP.STD ---
HPI - General General Date of Admission: 06/12/24 Date of Service: 06/12/24 Chief Complaint: Generalized weakness HPI Narrative ERINN EVERETT, is a 78 F who presented to the emergency department at [facility] on 06/12/2024 with a chief complaint of shortness of breath and generalized weakness. Patient reported that the day prior to presentation she started not feeling well generally speaking and then developed some shortness of breath later last evening. She also complains of weakness. She is not oxygen dependent at baseline. She reports that she has a cough but this cough is more coarse than usual. She denies any significant sputum production. Appetites been a little suppressed over the last 48 hours. She states she did have a fall onto her buttocks last evening while trying to get out of the car and had no injury. She feels generally weak. She has felt chilled with no documented fever. Denies any headache, nasal congestion, pharyngitis, or rhinorrhea., No nausea, vomiting, or diarrhea. Vital signs on presentation showed a temperature of 99, heart rate 94, respiratory rate 13-19, blood pressure 121/64 and pulse ox was 88% on room air at rest. She was placed on 2 L nasal cannula with improvement to her oxygen saturations between 94 and 95. She was markedly wheezy on exam initially on presentation. CBC is overtly unremarkable other than she does have a left shift with an 80.1% neutrophilia. She also has a monocytosis of 11.4%. Coags were normal. Chemistry panel shows normal electrolytes with a BUN of 21 and a serum creatinine 1.24 consistent with her baseline CKD stage IIIb. Lactic acid was within normal limits. Liver functions were unremarkable. Initial troponin was 22 with a repeat of 18. Her UA is suggestive of infection showing nitrites, leuk esterase, white cells, and 2+ bacteria. Patient has urinary incontinence at baseline and wears depends. She was treated with ceftriaxone, aerosols, steroids, and Tamiflu in the emergency department and request for admission was made given her hypoxemia. [facility] Medical History CKD stage 3b, GFR 30-44 ml/min Wears dentures Gastric reflux Shortness of breath on exertion Chronic cough Smoker Leg cramps History of stress test COPD (chronic obstructive pulmonary disease) COPD exacerbation History of left breast cancer Bladder incontinence Vitamin D deficiency IBS (irritable bowel syndrome) Hyperlipidemia GERD (gastroesophageal reflux disease) Depression Arthritis Skin cancer Cervical cancer Tobacco abuse Osteopenia Personal history of malignant neoplasm of breast Osteoarthritis Home Medications ?Medication ?Instructions ?Recorded ?Last Taken ?Type albuterol sulfate 90 mcg/actuation 2 puff inhalation Q4H PRN Sob &/Or 01/29/21 Unknown History aerosol inhaler Wheezing acetaminophen 300 mg-codeine 60 mg 1 tab PO Q6H PRN pain 10/12/22 Unknown History tablet docusate sodium 100 mg capsule 100 mg PO DAILY 10/12/22 06/11/24 History (Stool Softener) amlodipine 10 mg tablet 10 mg PO DAILY blood pressure 06/12/24 06/11/24 History gabapentin 100 mg capsule 100 mg PO BID pain 06/12/24 06/11/24 History hydrocodone-acetaminophen 5-325mg 1 tab PO Q6H PRN Pain 06/12/24 Unknown History 5mg-325mg metoclopramide HCl 5 mg tablet 5 mg PO BID 06/12/24 06/11/24 History Allergy/AdvReac Type Severity Reaction Status Date / Time ibuprofen AdvReac Nausea/Vom/ Verified 06/12/24 10:15 Diarrhea Family History Father Emphysema Heart disease Mother Seizures Breast cancer Surgical History History of esophagogastroduodenoscopy (EGD) (~02/2021) History of colonoscopy (~02/2021) History of lumpectomy History of knee replacement H/O: hysterectomy S/P cholecystectomy Social History (Updated 06/12/24 @ 19:[address] Ángela Bowden DO) household members: none housing: house Smoking Status: Current every day smoker tobacco type: cigarettes Smoking packs per day: 0.5 Smoking cigarettes per day: 10.0 alcohol intake: never substance use type: does not use ROS Constitutional Constitutional: Reports chills, fatigue, malaise, weakness and other Details: Decreased appetite ; Denies change in weight, fever(s) or night sweats Eyes Eyes: Denies blurry vision, change in eye color, change in vision, discharge from eye(s), double vision, erythema, eye pain, loss of vision or other ENT HEENT: Denies abnormal hearing, dysphagia, ear pain, epistaxis, headache(s), hearing loss, nasal congestion, nasal discharge, post nasal drip, sinus pressure, sore throat or other Cardiovascular Cardiovascular: Reports dyspnea on exertion; Denies chest pain, claudication, edema, lightheadedness, orthopnea, palpitations, paroxysmal nocturnal dyspnea, rapid heart rate, syncope or other Respiratory/Chest Respiratory/Chest: Reports cough, dyspnea, shortness of breath at rest, shortness of breath with exertion and wheezing; Denies excessive phlegm production, hemoptysis or productive cough Gastrointestinal Gastrointestinal: Denies abdominal pain, coffee ground emesis, constipation, diarrhea, dyspepsia, hematemesis, hematochezia, loose stools, melena, nausea, vomiting or other Genitourinary Genitourinary: Reports urinary incontinence; Denies burning urination, difficulty urinating, dysuria, hematuria, nocturia, urinary frequency, urinary hesitancy, urinary urgency or other Musculoskeletal Musculoskeletal: Denies arthralgias, back pain, joint pain, joint stiffness, joint swelling, myalgias, neck pain or other Neurologic Neurologic: Denies abnormal gait, abnormal speech, confusion, disequilibrium, dizziness, focal weakness, headache(s), numbness, paresthesias, seizure-like activity, seizures, syncope, tingling, tremor(s) or other Psychiatric Psychiatric: Denies anxiety, depression, homicidal ideation, suicidal ideation or other Endocrine Endocrinology: Denies change in body appearance, cold intolerance, excessive sweating, heat intolerance, polydipsia, polyuria or other Hematologic/Lymphatic Hematologic/Lymphatic: Denies anemia, easy bleeding, easy bruising, lymphadenopathy or other Allergic/Immunologic Allergic/Immunologic: Denies rhinitis, hives, eczemia, asthma or other Vital Signs Vital Signs Vital Signs: 06/12/24 10:09 06/12/24 10:14 06/12/24 10:17 Temperature 99 F 99 F Temperature Source Oral Oral Pulse Rate 94 94 Respiratory Rate 13 19 H Respiratory Effort Short of Breath Respiratory Depth Respiratory Pattern Normal Blood Pressure 121/64 H 130/67 H Blood Pressure Mean 83 88 Pulse Ox 94 95 Oxygen Delivery Method Nasal Cannula Nasal Cannula Oxygen Flow Rate (L/min) 2 2 06/12/24 10:18 06/12/24 10:32 06/12/24 10:47 Temperature Temperature Source Pulse Rate 94 Respiratory Rate 16 Respiratory Effort Normal Short of Breath Respiratory Depth Normal Respiratory Pattern Normal Blood Pressure Blood Pressure Mean Pulse Ox 94 Oxygen Delivery Method Nasal Cannula Nasal Cannula Oxygen Flow Rate (L/min) 2 2 06/12/24 11:14 06/12/24 12:00 06/12/24 13:00 Temperature 98 F 98 F 98 F Temperature Source Oral Oral Oral Pulse Rate 96 89 86 Respiratory Rate 17 14 14 Respiratory Effort Respiratory Depth Respiratory Pattern Blood Pressure 100/59 L 118/58 L 106/58 L Blood Pressure Mean 72 78 72 Pulse Ox 954 98 99 Oxygen Delivery Method Nasal Cannula Nasal Cannula Nasal Cannula Oxygen Flow Rate (L/min) 2 2 2 Physical Exam Const alert, oriented x3, no apparent distress and well nourished; Negative for average body habitus or healthy appearing Constitutional Narrative: Elderly, overweight, white female, sitting up in bed, appears ill but not toxic, currently appears comfortable General Appearance: cooperative HEENT normocephalic, head/scalp atraumatic, hearing grossly normal bilaterally and moist oral mucous membranes HEENT Narrative: Mallampati 3, no thrush Eyes EOMs intact bilaterally and conjunctivae normal Eyes Narrative: No scleral icterus Neck no lymphadenopathy and supple Neck Narrative: Trachea midline Resp normal respiratory effort, no retractions, no use of accessory muscles and No clear to auscultation bilaterally Resp Narrative: Diffuse scattered end expiratory wheezes, crackles in right base, no signs of extremis currently on 2 L Auscultation: crackles and wheezes; Negative for rales or rhonchi Cardio regular rate, regular rhythm, S1 normal heart sound, S2 normal heart sound, no murmurs, no rub, no gallops and no clicks GI normal to inspection, nondistended, normoactive bowel sounds, soft to palpation and non-tender Extremity no clubbing, cyanosis or edema Extremity Narrative: Pedal pulses are 2+, radial pulses are 2+ Neuro oriented x3, moves all extremities and no focal motor deficits Speech: speech normal Psych affect normal Psych Narrative: Very pleasant, interacts appropriately Results Lab / Micro Data 06/12/24 10:45 06/12/24 10:45 Labs: Laboratory Results - last 24 hr 06/12/24 10:45: WBC 8.5, RBC 4.37, Hgb 13.5, Hct 40.4, MCV 92.4, MCH 30.9, MCHC 33.4, RDW Std Deviation 48.0 H, RDW Coeff of Nahed 14.0, Plt Count 235, MPV 9.3, Immature Gran % (Auto) 0.400, Neut % (Auto) 80.1 H, Lymph % (Auto) 5.9 L, [place] % (Auto) 11.4 H, Eos % (Auto) 1.6, Baso % (Auto) 0.6, Absolute Neuts (auto) 6.9, Absolute Lymphs (auto) 0.50 L, Nucleated RBC % 0, PT 13.1, INR 1.0, APTT 26.7, Sodium 136, Potassium 4.3, Chloride 102, Carbon Dioxide 21.9, Anion Gap 13, BUN 21 H, Creatinine 1.24 H, Est GFR (MDRD) Non-Af 44 L, BUN/Creatinine Ratio 16.9, Glucose 108 H, Lactic Acid < 1.0, Calcium 9.2, Total Bilirubin 0.46, AST 23, ALT 17, Alkaline Phosphatase 69, Troponin T High Sens 22 H, Total Protein 6.9, Albumin 4.1, Globulin 2.7, Albumin/Globulin Ratio 1.5 06/12/24 11:38: Urine Color Yellow, Urine Clarity Cloudy, Urine pH 6.0, Ur Specific [place] 1.010, Urine Protein 15 H, Urine Glucose (UA) Normal, Urine Ketones Negative, Urine Occult Blood 10 H, Urine Nitrite Positive H, Urine Bilirubin Negative, Urine Urobilinogen Normal, Ur Leukocyte Esterase 500 H, Urine RBC 0-5 SEEN, Urine WBC 50-100 SEEN, Ur Squamous Epith Cells 0-5 SEEN, Urine Bacteria 2+, Urine Mucus 0 SEEN 06/12/24 12:49: Troponin T Hi Sens 2 Hr 18 H Micro: Microbiology 06/12/24 11:08 Mucosa - Nose SARS-CoV-2, Influenza & RSV (PCR) - Final Influenzae A Imaging Radiology Impression Chest X-Ray 06/12/24 10:31 IMPRESSION: No acute abnormality is seen. Reading Location: [facility] Assessment & Plan Assessment/Plan (1) Hypoxia: (2) COPD with acute exacerbation: (3) Influenza A H1N1 infection: (4) Elevated troponin: (5) Abnormal urinalysis: PLAN: Plan Acute hypoxia secondary to COPD exacerbation due to influenza A infection -Patient is not oxygen dependent at baseline but currently requiring 2 L -Wean O2 as able -Will need ambulatory oxygen prior to discharge -Tamiflu 30 mg twice daily based on renal function x 5 days -Solu-Medrol 40 every 8 -Scheduled and as needed nebulizers -Mucinex -Obtain sputum culture if able to produce -I-S -Acapella as ordered Elevated troponin -Suspect related to influenza infection and hypoxemia with the etiology being demand ischemia -Initial troponin 22 and has trended down -Patient without chest pain -No further workup at this time Abnormal urinalysis -UA is very suggestive infection -Patient has urinary incontinence at baseline -Culture pending -Ceftriaxone Initiated the Emergency Department and Will Continue--> day 1 of 3 CKD stage IIIb -Baseline renal function appears to be between 1.2 and 1.5 next-currently 1.24 -Avoid nephrotoxins -Monitor -Tamiflu is renally dosed for creatinine clearance Essential hypertension -Continue home amlodipine Chronic pain/neuropathy -Continue home gabapentin -Hold home Vicodin -As needed oxycodone COPD -Patient with ongoing tobacco abuse -Treatment for exacerbation as noted above Intermittent nausea -Continue home Reglan History of breast cancer -Remote GERD -Patient is on no medication at this time -monitor closely with steroid use DVT prophylaxis -Subcu enoxaparin daily CODE STATUS -DNR CCA with no intubation as per discussion on admission Charges/Coding Visit Charges Inpatient E&M: 16380 Init Hosp L2
--- NOTE | 2024-06-12 14:05 | CASEMGMT ---
Care Management Face to Face with patient for initial transition planning/care coordination assessment in the ED. This instructional writer introduced self and role at [facility]. Patient alert and oriented. Patient willing to participate in assessment and is able to answer all questions appropriately. Care providers, pharmacy, and demographics verified. Admitting Diagnosis: Hypoxia, COPD with acute exacerbation, Influenza A H1N1 infection Other diagnosis history: COPD not chronically on oxygen, IBS, GERD, depression PCP: Augusta Hicks Specialists: none Preferred Pharmacy: [facility] Insurance: [employer] Medicare PPO (primary). Medicaid (secondary). Prescription Benefit: yes Living Will/HPOA: none and denies needing information LNOK: 3 sons; Aden lives in [place] and is emergency contact Living Arrangements: lives with friend (My) for last 20 years; 1 story home with 2 steps to enter; initially stated being independent with all ADLs/IADLs, but then stated My has to help patient out of bed each morning due to patient's bad leg Transportation: patient drives DME: walker, scooter, pulse ox, blood pressure cuff (patient stated using a regular folding chair in the shower due to not always being able to stand) HHC: none SNF/Rehab: none Community Resources: none Behavioral Health History: none Patient goals: Patient wishes to discharge home, denies need for home health care at this time. Patient denies any further needs or concerns at this time. Disposition Plan: admission to acute; RN CM/SW to follow for discharge planning needs that may arise. Joaquina Borrego, REFRACTORY TILE HELPER, CLINICAL DATA ABSTRACTOR
[2024-06-12] MEDS: Oseltamivir Phosphate 75 MG Capsule PO (14:09)
[2024-06-12] MEDS: Metoclopramide 5 MG TABLET PO (15:55)
[2024-06-12] MEDS: Heparin Injection (Vial) 5,000 UNIT/ML VIAL 5000 UNIT SC ×2 (16:21→21:12)
[2024-06-12 16:31] LABS: Troponin T High Sens 4 HR 18 ng/L (<=14)
[2024-06-12] MEDS: oxyCODONE 5 MG Tablet PO (21:04)
[2024-06-12] MEDS: Oseltamivir Phosphate 30 MG Capsule PO (21:11)
[2024-06-12] MEDS: Gabapentin 100 MG Capsule PO (21:11)
[2024-06-12] MEDS: guaiFENesin 1,200 MG Tablet 1200 MG PO (21:11)
[2024-06-12] MEDS: Methylprednisolone Sod Succ 40 MG/ML VIAL IV (21:11)
[2024-06-12] MEDS: 0.9% Saline Lock 10 ML Syringe IV (21:11)
[2024-06-12] MEDS: Acetaminophen 325 MG Tablet 650 MG PO (21:27)
[2024-06-13] VITALS (9 sets, daily range): BP systolic 113–146; BP diastolic 59–74; PULSE 80–90; RESP 16–18; TEMP 36.5–36.7; O2SAT 92–97; BMI 29.0
[2024-06-13] MEDS: Ipratropium/Albuterol Sulfate 3 ML AMPUL.NEB INHALATION ×4 (03:17→20:08)
[2024-06-13] MEDS: Methylprednisolone Sod Succ 40 MG/ML VIAL IV ×3 (06:59→21:59)
[2024-06-13] MEDS: Metoclopramide 5 MG TABLET PO ×2 (07:00→16:39)
[2024-06-13] MEDS: Heparin Injection (Vial) 5,000 UNIT/ML VIAL 5000 UNIT SC ×3 (07:00→21:58)
[2024-06-13] MEDS: Acetaminophen 325 MG Tablet 650 MG PO (07:04)
[2024-06-13] MEDS: oxyCODONE 5 MG Tablet PO (07:04)
[2024-06-13 07:15] LABS: Absolute Lymphocyte Count 0.38 X10^3/uL (0.83-4.51); Absolute Neutrophil Count 10.3 X10^3/uL (2.0-7.7); Basophil# 0.01 X10^3/uL; Basophil% 0.1 % (0-1); Hematocrit 37.9 % (37-47); Hemoglobin 12.5 g/dL (12.0-15.0); Lymphocyte # 0.38 X10^3/ul (0.83-4.51); Lymphocyte % 3.4 % (19-41); Mean Corpuscular Hgb 30.6 pg (27.0-32.0); Mean Corpuscular Volume 92.9 fL (81-99); Mean Platelet Vol. 10.1 fl (6.2-12.0); Monocyte# 0.32 X10^3/uL; Monocyte% 2.9 % (0-10); NRBC Flagged by Analyzer 0 % (0-5); Neutrophil # 10.28 X10^3/uL (2.7-7.7); Neutrophil % 93.1 % (47-70); POSITIVE DIFFERENTIAL YES; Platelet Count 227 K/mm3 (150-450); RBC Distribution Width CV 13.8 % (11.6-14.6); RBC Distribution Width SD 47.8 fl (35.1-43.9); Red Blood Count 4.08 M/mm3 (4.2-5.4); White Blood Count 11.1 K/mm3 (4.4-11.0)
[2024-06-13] MEDS: amLODIPine 10 MG Tablet PO (08:08)
[2024-06-13] MEDS: Gabapentin 100 MG Capsule PO ×2 (08:08→21:58)
[2024-06-13] MEDS: Oseltamivir Phosphate 30 MG Capsule PO ×2 (08:08→21:58)
[2024-06-13] MEDS: guaiFENesin 1,200 MG Tablet 1200 MG PO ×2 (08:08→21:58)
[2024-06-13 08:15] LABS: ALB/GLOB Ratio 1.4 RATIO (0.9-2.4); AST(SGOT) 19 U/L (<=31); Alanine Aminotransfer ALT/SGPT 12 U/L (<=34); Albumin, Serum 3.7 g/dL (3.4-4.8); Alkaline Phosphatase 60 U/L (35-104); Anion Gap 14 (5-15); BUN 22 mg/dL (4-19); BUN/Creat Ratio 21.2 RATIO (10-20); Calcium,Total 8.8 mg/dL (7.6-11.0); Chloride 109 mmol/L (98-108); Creatinine, Serum 1.02 mg/dL (0.70-1.20); EST Glomerular Filtration Rate 56 (>60); Estimated Creatinine Clearance 38.25 ml/min (50-250); Globulin 2.7 g/dL (2.2-4.2); Glucose 142 mg/dL (70-99); Magnesium 2.2 mg/dL (1.5-2.2); Phosphorus 3.2 mg/dL (2.7-4.5); Potassium 3.9 mmol/L (3.3-5.1); Protein, Total 6.4 g/dL (5.9-8.4); Sodium Level 142 mmol/L (133-145); Total Bilirubin 0.16 mg/dL (0.00-1.30)
[2024-06-13] MEDS: Ceftriaxone 1 GM/50 ML BAG IV (09:18)
[2024-06-13] MEDS: 0.9% Normal Saline (100mL Bag) 100 ML 15 ML IV (09:18)
[2024-06-13] MEDS: 0.9% Saline Lock 10 ML Syringe IV ×3 (13:34→23:38)
--- NOTE | 2024-06-13 17:36 | PN.HOSP_ITS ---
Reason for Visit Reason for Visit: Diagnoses Influenza due to other identified influenza virus with other respiratory manifestations (06/12/24) Chronic obstructive pulmonary disease with (acute) exacerbation (06/12/24) Hypoxemia (06/12/24) Other specified abnormal findings of blood chemistry (06/12/24) Unspecified abnormal findings in urine (06/12/24) Subjective Subjective Patient was seen and examined today, she is currently on room air, she complains of feeling fatigued and complains of some malaise. Patient's urine culture grew out presumptive E. coli. Objective Data Objective Data Vital Signs: Vital Signs Temp Pulse Resp BP Pulse Ox O2 Del Method O2 Flow Rate 97.9 F 85 18 115/59 L 93 Room Air 2 06/13/24 14:16 06/13/24 14:16 06/13/24 14:16 06/13/24 14:16 06/13/24 14:16 06/13/24 14:16 06/13/24 03:18 FiO2 93 06/13/24 07:55 Oxygen Flow Rate (L/min) 2 Oxygen Delivery Method Room Air Weight: 67.2 kg Body Mass Index (BMI) 29.0 Intake & Output: Intake and Output for Last 24 Hours 06/11/24 06/12/24 06/13/24 23:59 23:59 23:59 Intake Total 2770 / 2770 500.25 / 500.25 Balance 2770 / 2770 500.25 / 500.25 Lab / Micro Data 06/13/24 06:06 06/13/24 06:06 Labs: Laboratory Results - last 24 hr 06/13/24 06:06: WBC 11.1 H, RBC 4.08 L, Hgb 12.5, Hct 37.9, MCV 92.9, MCH 30.6, MCHC 33.0, RDW Std Deviation 47.8 H, RDW Coeff of Nahed 13.8, Plt Count 227, MPV 10.1, Immature Gran % (Auto) 0.500, Neut % (Auto) 93.1 H, Lymph % (Auto) 3.4 L, [place] % (Auto) 2.9, Eos % (Auto) 0.0, Baso % (Auto) 0.1, Absolute Neuts (auto) 10.3 H, Absolute Lymphs (auto) 0.38 L, Nucleated RBC % 0, Sodium 142, Potassium 3.9, Chloride 109 H, Carbon Dioxide 19.0 L, Anion Gap 14, BUN 22 H, Creatinine 1.02, Estim Creat Clear Calc 38.25 L, Est GFR (MDRD) Non-Af 56 L, BUN/Creatinine Ratio 21.2 H, Glucose 142 H, Calcium 8.8, Phosphorus 3.2, Magnesium 2.2, Total Bilirubin 0.16, AST 19, ALT 12, Alkaline Phosphatase 60, Total Protein 6.4, Albumin 3.7, Globulin 2.7, Albumin/Globulin Ratio 1.4 Micro: Microbiology 06/12/24 11:38 Urine, Random Urine Culture - Preliminary Presumptive E. coli 06/12/24 11:08 Mucosa - Nose SARS-CoV-2, Influenza & RSV (PCR) - Final Influenzae A Physical Exam Const alert, oriented x3 and no apparent distress General Appearance: cooperative, well kempt and well developed Orientation / Consciousness: awake, oriented to person, oriented to place and oriented to time HEENT normocephalic, head/scalp atraumatic and moist oral mucous membranes Eyes PERRL, EOMs intact bilaterally and conjunctivae normal Neck supple, no JVD, thyroid normal and no carotid bruits General: trachea midline Resp normal respiratory effort, no retractions, no use of accessory muscles and clear to auscultation bilaterally Auscultation: Negative for rales, rhonchi or wheezes Cardio regular rate, regular rhythm, S1 normal heart sound, S2 normal heart sound, no murmurs, no rub and no gallops GI normal to inspection, nondistended, normoactive bowel sounds, soft to palpation, non-tender and non-distended Extremity no clubbing, cyanosis or edema Skin no rashes or lesions noted General Skin Exam: no breakdown Neuro oriented x3, CN's II-XII intact bilaterally, moves all extremities, no focal motor deficits and no sensory deficits noted Sensorium / Orientation: awake and alert Speech: speech normal Psych affect normal Assessment & Plan Assessment/Plan (1) Influenza A: PLAN: Plan 1. COPD exacerbation due to influenza A infection-continue aerosol treatment, IV corticosteroids and Tamiflu. #2 hypoxia secondary to #1-resolved at this time, pulse ox will be monitored #3 acute cystitis-secondary to E. coli and, cultures are pending at this time, continue antibiotics (Rocephin) #4 chronic kidney disease stage IIIb-complicates care, management, recovery, and prognosis #5 essential hypertension-patient is on amlodipine Total clinical time spent by myself addressing patient's medical issues, reviewing her data, and collaborating with patient's care team: 35-minute Charges/Coding Visit Charges Inpatient E&M: 54641 Subs Hosp L2
[2024-06-13] MEDS: MELATONIN 3 MG TABLET PO (21:58)
[2024-06-13] MEDS: Ondansetron 4 MG/2 ML Vial IV (23:37)
[2024-06-14 03:25] VITALS: BP 132/76; PULSE 82; RESP 16; TEMP 36.6; O2SAT 96
[2024-06-14 04:34] VITALS: BMI 28.5
[2024-06-14] MEDS: Heparin Injection (Vial) 5,000 UNIT/ML VIAL 5000 UNIT SC (06:48)
[2024-06-14] MEDS: Metoclopramide 5 MG TABLET PO (06:48)
[2024-06-14] MEDS: Methylprednisolone Sod Succ 40 MG/ML VIAL IV (06:48)
[2024-06-14 07:15] VITALS: PULSE 81; RESP 20
[2024-06-14] MEDS: Ipratropium/Albuterol Sulfate 3 ML AMPUL.NEB INHALATION ×2 (07:15→11:13)
[2024-06-14] MEDS: Gabapentin 100 MG Capsule PO (08:06)
[2024-06-14] MEDS: amLODIPine 10 MG Tablet PO (08:06)
[2024-06-14] MEDS: guaiFENesin 1,200 MG Tablet 1200 MG PO (08:06)
[2024-06-14] MEDS: Oseltamivir Phosphate 30 MG Capsule PO (08:07)
[2024-06-14 08:26] VITALS: O2SAT 93
[2024-06-14 09:25] VITALS: BP 129/57; PULSE 91; RESP 18; TEMP 36.8; O2SAT 94
[2024-06-14] MEDS: 0.9% Saline Lock 10 ML Syringe IV (09:41)
[2024-06-14] MEDS: Ceftriaxone 1 GM/50 ML BAG IV (09:43)
[2024-06-14 11:08] VITALS: PULSE 78; RESP 17
--- NOTE | 2024-06-14 12:09 | CASEMGMT ---
JARETT CM into pt room, pt being set up for lunch at this time. Pt states she is ready to go home. Pt is on RA. Pt states she feels a little weak but denies any need for therapy. She states that she lives with a lady who is a nurse and they take care of each other. Pt denies any homegoing needs at this time.
--- NOTE | 2024-06-14 13:09 | DCINST_ITS ---
Discharge Instructions Diet Discharge Diet: No restrictions DC O2, CPAP, BIPAP needs Home O2 Discharge instructions: No Dressing / Incision Discharge Activity: Return to Normal Activity Weight Bearing Status: Full weight bearing Follow Up Care Test Results: Test results from this visit will be discussed in further detail at your follow- up appointment, if applicable. Discharge Plan Admission Admit Date/Time: 06/12/24 13:47 Primary Reason for Your Visit: Urinary tract infection, influenza A Attending Provider: Hector Rajan Primary Care Provider: Augusta Hicks Consulting Providers: Ángela Bowden Discharge Orders/Prescriptions Prescriptions: New nicotine 14 mg/24 hr Patch 24 Hour 14 mg transdermal DAILY Qty: 30 0RF oseltamivir 30 mg Capsule 30 mg PO BID Qty: 5 0RF Rx Instructions: Start in the evening of 06/14/2024 prednisone 20 mg tablet 40 mg PO DAILY Qty: 14 0RF cephalexin 500 mg capsule 500 mg PO TID Qty: 15 0RF Rx Instructions: Start on 06/15/2024 Continued docusate sodium [Stool Softener] 100 mg capsule 100 mg PO DAILY acetaminophen-codeine 300-60 mg tablet 1 tab PO Q6H PRN (Reason: pain) Patient Comments: TAKES FROM [facility] albuterol sulfate 1 PUFF HFA aerosol inhaler 2 puff inhalation Q4H PRN (Reason: Sob &/Or Wheezing) amlodipine 10 mg tablet 10 mg PO DAILY metoclopramide HCl 5 mg tablet 5 mg PO BID gabapentin 100 mg capsule 100 mg PO BID hydrocodone-acetaminophen 5-325 mg tablet 1 tab PO Q6H PRN (Reason: Pain) Patient Comments: TAKES FROM TYLENOL #4 Referrals / Follow Up: Augusta Hicks DO [Primary Care Provider] - Within 1 Month Disposition Disposition (needs filled in before D/C Order can be placed): Home, Self Care
[2024-06-14] MEDS: Loperamide 2 MG Capsule 4 MG PO (13:16)
--- NOTE | 2024-06-14 13:16 | PCM.DC.SUM ---
Providers Date of Admission: 06/12/24 Date of Discharge: 06/14/24 Primary Care Physician: Dr. Augusta Hicks DO Reason For Visit: ACUTE EXAC OF COPD W/ HYPOXIA 2ND TO FLU/UTI Diagnosis Discharge Diagnosis (1) Influenza A: Status: Acute Code(s): J10.1 - Influenza due to other identified influenza virus with other respiratory manifestations Plan 1. COPD exacerbation due to influenza A infection-continue aerosol treatment, IV corticosteroids and Tamiflu. #2 hypoxia secondary to #1-resolved at this time, pulse ox will be monitored #3 acute cystitis-secondary to E. coli and, cultures are pending at this time, continue antibiotics (Rocephin) #4 chronic kidney disease stage IIIb-complicates care, management, recovery, and prognosis #5 essential hypertension-patient is on amlodipine Total clinical time spent by myself addressing patient's medical issues, reviewing her data, and collaborating with patient's care team: 35-minute Medications at Discharge Home Medications albuterol sulfate 90 mcg/actuation aerosol inhaler 2 puff inhalation Q4H PRN Sob &/Or Wheezing 01/29/21 acetaminophen 300 mg-codeine 60 mg tablet 1 tab PO Q6H PRN pain 10/12/22 docusate sodium 100 mg capsule (Stool Softener) 100 mg PO DAILY 10/12/22 amlodipine 10 mg tablet 10 mg PO DAILY blood pressure 06/12/24 gabapentin 100 mg capsule 100 mg PO BID pain 06/12/24 hydrocodone-acetaminophen 5-325mg 5mg-325mg 1 tab PO Q6H PRN Pain 06/12/24 metoclopramide HCl 5 mg tablet 5 mg PO BID 06/12/24 cephalexin 500 mg capsule 500 mg PO TID #15 caps 06/14/24 nicotine 14 mg/24 hr daily transdermal patch 14 mg transdermal DAILY #30 ea 06/14/24 oseltamivir 30 mg capsule 30 mg PO BID #5 caps 06/14/24 prednisone 20 mg tablet 40 mg (2 x 20 mg) PO DAILY #14 tabs 06/14/24 Hospital Course Operations None Procedures None Summary of Care Provided Minutes Spent on Discharge: 31 Hospital Course: 78-year-old white female was seen in the emergency room at [facility] with complaints of shortness of breath and malaise. This has been going on for approximately 24 hours. At the time the squad brought the patient in, her pulse ox was 88% on room air and she had audible wheezing. Workup in the emergency room showed a normal white blood cell count, hemoglobin was also normal, chemistry profile showed a creatinine of 1.24, BUN of 21, and a troponin of 22. Urinalysis showed 50-100 WBCs, 2+ bacteria, and was positive for nitrites. Patient's influenza PCR was positive for influenza A. Chest x-ray showed no acute abnormality. Patient was admitted to [place] [address], pulse ox was monitored and the patient was started on Tamiflu and given aerosol treatments. Patient was placed on IV corticosteroids and IV antibiotics for acute cystitis. Patient's urine culture came back positive for E. coli which was pansensitive. On 06/14/2024, patient was seen and examined: On examination she appeared in good health and spirits, she does not appear to be in any distress. Vital signs as documented. Skin warm and dry and without overt rashes. Neck without JVD, thyroid appears normal, trachea is midline, neck is supple. Lungs clear, normal air movement was noted. Heart exam notable for regular rhythm, normal sounds and absence of murmurs, rubs or gallops. Abdomen unremarkable and without evidence of organomegaly, masses, or abdominal aortic enlargement, bowel sounds are present in all 4 quadrants, no abdominal tenderness was noted. Extremities nonedematous, no cyanosis was noted, no clubbing was noted. Neuro: Cranial nerves II through XII are grossly intact, no focal motor deficits were noted, sensation to light touch and pinprick is intact, motor exam 5/5 throughout. Psych: Patient is alert and oriented x3, she does not appear anxious or depressed, she does not appear agitated. Patient's oxygen was weaned off prior to her discharge and she did not require home oxygen at the time of discharge from the hospital on 06/14/2024. Patient was discharged in stable condition on that date Weight / BMI Weight Weight: 66.4 kg Body Mass Index (BMI) 28.5 ABG / Lab / Microbiology Data 06/13/24 06:06 06/13/24 06:06 Microbiology: Microbiology 06/12/24 12:49 Blood Culture (Wb) - Right Wrist Blood Culture - Preliminary No growth in 48 hours. 06/12/24 10:45 Blood Culture (Wb) - Right Wrist Blood Culture - Preliminary No growth in 48 hours. 06/12/24 11:38 Urine, Random Urine Culture - Final Presumptive E. coli 06/12/24 11:08 Mucosa - Nose SARS-CoV-2, Influenza & RSV (PCR) - Final Influenzae A D/C Instructions Discharge Diet: No restrictions Weight Bearing Status: Full weight bearing DC O2, CPAP, BIPAP Needs PSN CPAP & BiPAP: BiPAP & CPAP Settings per PSN Fraction of Inspired Oxygen ( 93 06/13/24 07:55 FIO2) Home O2 Discharge instructions: No Meaningful Use Info Meaningful Use Meaningful Use Diagnoses (Choose all that apply): None applicable Ischemic Stroke Statin Dosing Therapy Reference: STATIN DOSE THERAPY REFERENCE: * Patients > 75 years receive moderate or high dose statin therapy. * Patients 75 years or YOUNGER should receive HIGH intensity statin dose unless contraindicated. You will be required to document reason for non-treatment if statin daily dose does not meet guidelines. HIGH DOSE STATIN THERAPY DAILY Atorvastatin > than or = to 40 mg Rosuvastatin > than or = to 20 mg Amlodipine + Atorvastatin > than or = to 2.5/40 mg Ezetimibe + Simvastatin 10/80 mg Simvastatin 80mg Discharge Plan Admission Admit Date/Time: 06/12/24 13:47 Primary Reason for Your Visit: Urinary tract infection, influenza A Attending Provider: Hector Rajan Primary Care Provider: Augusta Hicks Consulting Providers: Ángela Bowden Discharge Orders/Prescriptions Prescriptions: New nicotine 14 mg/24 hr Patch 24 Hour 14 mg transdermal DAILY Qty: 30 0RF oseltamivir 30 mg Capsule 30 mg PO BID Qty: 5 0RF Rx Instructions: Start in the evening of 06/14/2024 prednisone 20 mg tablet 40 mg PO DAILY Qty: 14 0RF cephalexin 500 mg capsule 500 mg PO TID Qty: 15 0RF Rx Instructions: Start on 06/15/2024 Continued docusate sodium [Stool Softener] 100 mg capsule 100 mg PO DAILY acetaminophen-codeine 300-60 mg tablet 1 tab PO Q6H PRN (Reason: pain) Patient Comments: TAKES FROM [employer] albuterol sulfate 1 PUFF HFA aerosol inhaler 2 puff inhalation Q4H PRN (Reason: Sob &/Or Wheezing) amlodipine 10 mg tablet 10 mg PO DAILY metoclopramide HCl 5 mg tablet 5 mg PO BID gabapentin 100 mg capsule 100 mg PO BID hydrocodone-acetaminophen 5-325 mg tablet 1 tab PO Q6H PRN (Reason: Pain) Patient Comments: TAKES FROM TYLENOL #4 Referrals / Follow Up: Augusta Hicks DO [Primary Care Provider] - Within 1 Month Disposition Disposition (needs filled in before D/C Order can be placed): Home, Self Care Charges/Coding Visit Charges Inpatient E&M: 08349 Disch Hosp >30min
[2024-06-14 13:17] VITALS: BP 108/93; PULSE 81; RESP 18; TEMP 36.4; O2SAT 94
--- NOTE | 2024-06-14 15:21 | CHAPLAIN ---
Type of Pastoral Visit ___ Initial Visit ___ Follow-up Visit ___ On-call Visit ___ General Patient Visit ___ Spiritual Assessment ___ Family Conference ___ Bereavement ___ Rapid Response ___ Code Blue ___ Other (describe below) Pastoral Care Referral From ___ Patient ___ Family ___ Nurse ___ Physician ___ [place] ___ Chairman & Ceo ___ Other (describe below) Sacrament/Intervention ___ Active listening ___ Anointing ___ Mormonism ___ Bereavement ___ Communion ___ Shira exploration ___ ___ Life review ___ Prayer ___ Reconciliation ___ Sacrament of Sick ___ Supportive presence ___ Wedding ___ Other (describe below) Pastoral Comments patient was discharged before seen by this roll on worker
--- NOTE | 2024-06-14 16:17 | PHA.DC.MR.R ---
Pharmacy [place] Med Reconciliation Pharmacy Service has performed discharge medication reconciliation for this patient. Medication education papers prepared, patient discharged before I was able to high school counselor. Medications reviewed. The patient's discharge medication list was reviewed for discrepancies and discrepancies were resolved. Medications at Discharge Home Medications albuterol sulfate 90 mcg/actuation aerosol inhaler 2 puff inhalation Q4H PRN Sob &/Or Wheezing 01/29/21 acetaminophen 300 mg-codeine 60 mg tablet 1 tab PO Q6H PRN pain 10/12/22 docusate sodium 100 mg capsule (Stool Softener) 100 mg PO DAILY 10/12/22 amlodipine 10 mg tablet 10 mg PO DAILY blood pressure 06/12/24 gabapentin 100 mg capsule 100 mg PO BID pain 06/12/24 hydrocodone-acetaminophen 5-325mg 5mg-325mg 1 tab PO Q6H PRN Pain 06/12/24 metoclopramide HCl 5 mg tablet 5 mg PO BID 06/12/24 cephalexin 500 mg capsule 500 mg PO TID #15 caps 06/14/24 nicotine 14 mg/24 hr daily transdermal patch 14 mg transdermal DAILY #30 ea 06/14/24 oseltamivir 30 mg capsule 30 mg PO BID #5 caps 06/14/24 prednisone 20 mg tablet 40 mg (2 x 20 mg) PO DAILY #14 tabs 06/14/24
== END 2024-06-14 14:57 | disposition home or self-care (01) | DRG 191 ==
LOC: ED 14:03 → MS3 14:07
PROVIDERS: Admitting Provider Internal Medicine; Emergency Provider Emergency Medicine; PCP Family Medicine; Visit Provider Internal Medicine
DX: J44.1 Chronic obstructive pulmonary disease with (acute) exacerbation (principal); I24.89 Other forms of acute ischemic heart disease; N30.00 Acute cystitis without hematuria; Z66 Do not resuscitate; N18.32 Chronic kidney disease, stage 3b; I12.9 Hypertensive chronic kidney disease with stage 1 through stage 4 chronic kidney disease, or unspecified chronic kidney disease; E78.5 Hyperlipidemia, unspecified; K58.9 Irritable bowel syndrome, unspecified; J10.1 Influenza due to other identified influenza virus with other respiratory manifestations; G62.9 Polyneuropathy, unspecified; K21.9 Gastro-esophageal reflux disease without esophagitis; F17.210 Nicotine dependence, cigarettes, uncomplicated; R09.02 Hypoxemia; R32 Unspecified urinary incontinence; G89.29 Other chronic pain; B96.20 Unspecified Escherichia coli [E. coli] as the cause of diseases classified elsewhere; Z79.899 Other long term (current) drug therapy; Z90.710 Acquired absence of both cervix and uterus
CPT/HCPCS: 36415; 71046; 80053; 81001; 83605; 83735; 84100; 84484; 85025; 85610; 85730; 87040; 87086; 87088; 87186; 87631; 93005; 94640; 94668; 99285; 99406; A4216; J2405

== ENCOUNTER → 2024-08-07 | Outpatient (CLI) | payer MEDICARE, MEDICAID, SELFPAY ==
--- NOTE | 2024-08-07 14:39 | CT_ITS ---
PROCEDURE: CTA HEAD AND NECK W/ CONTRAST 08/07/2024 REASON FOR EXAM: DIZZINESS, VISION CHANGES TECHNIQUE: CTA imaging of the head and neck from the aortic arch to the skull vertex with out contrast and with intravenous contrast. Multiplanar and multisequence images were obtained. CONTRAST: 100 cc Isovue 370 One or more dose reduction techniques were used (e.g., Automated exposure control, adjustment of the mA and/or kV according to patient size, use of iterative reconstruction technique). RADIATION DOSE SUMMARY: CTDlvol: ?? MGy DLP: ? MGycm FINDINGS: Initial noncontrast CT study of the brain is negative for hemorrhage, mass or hydrocephalus. The aortic arch is normal in caliber with marginal calcification. Calcified plaque in the proximal subclavian artery. The vertebral arteries are patent. No cervical vertebral stenosis or dissection is noted. Normal distal vertebral arteries. Normal vertebrobasilar junction. No basilar stenosis. Patent basilar tip. origin right [employer]. No visible proximal [employer] occlusion. Negative for dural sinus thrombosis. Right transverse sinus dominant. Left and right common carotid arteries patent. Calcified plaque at both carotid bifurcations without significant narrowing. No carotid dissection. Normal cavernous and parasellar internal carotid vessels. No MCA or PABLO branch occlusion. Negative for aneurysm. No dominant soft tissue masses are seen in the neck. CT/CTA Head AND Neck W/ Contrast IMPRESSION: Negative for significant vascular stenosis or aneurysm Reading [facility]
== END | disposition home or self-care (01) ==
LOC: CT 14:35
PROVIDERS: PCP Family Medicine; Referring Provider Family Medicine; Visit Provider Family Medicine
DX: R42 Dizziness and giddiness (principal); H53.9 Unspecified visual disturbance
CPT/HCPCS: 70496; 70498; Q9967; A4216

== ENCOUNTER → 2024-12-06 | Outpatient (CLI) | payer MEDICARE, MEDICAID, SELFPAY ==
[2024-12-06 15:17] LABS: Hematocrit 46.7 % (37-47); Hemoglobin 15.2 g/dL (12.0-15.0); Immature Granulocytes Count 0.030 X10^3/uL (0.0-0.0); Mean Corp Hgb Conc 32.5 g/dL (32-36); Mean Corpuscular Volume 93.2 fL (81-99); Mean Platelet Vol. 10.1 fl (6.2-12.0); NRBC Flagged by Analyzer 0 % (0-5); Platelet Count 301 K/mm3 (150-450); RBC Distribution Width CV 13.4 % (11.6-14.6); RBC Distribution Width SD 45.6 fl (35.1-43.9); Red Blood Count 5.01 M/mm3 (4.2-5.4); White Blood Count 10.0 K/mm3 (4.4-11.0)
[2024-12-06 15:41] LABS: AST(SGOT) 23 U/L (<=31); Alanine Aminotransfer ALT/SGPT 16 U/L (<=34); Albumin, Serum 4.7 g/dL (3.4-4.8); Alkaline Phosphatase 65 U/L (35-104); Anion Gap 14 (5-15); BUN 22 mg/dL (4-19); BUN/Creat Ratio 15.0 RATIO (10-20); Calcium,Total 10.0 mg/dL (7.6-11.0); Carbon Dioxide 23.6 mmol/L (21.0-32.0); Chloride 103 mmol/L (98-108); Globulin 3.1 g/dL (2.2-4.2); Glucose 110 mg/dL (70-99); Potassium 5.1 mmol/L (3.3-5.1); Pro- Brain NATRIURETIC PEPTIDE 264 pg/mL (<=1800); Troponin T High Sensitivity 26 ng/L (<=14)
== END | disposition home or self-care (01) ==
LOC: BFHLAB 13:40
PROVIDERS: PCP Family Medicine; Visit Provider Family Medicine
DX: I50.32 Chronic diastolic (congestive) heart failure (principal); R07.9 Chest pain, unspecified; R60.9 Edema, unspecified; Z51.81 Encounter for therapeutic drug level monitoring
CPT/HCPCS: 36415; 80053; 83880; 84484; 85025

== ENCOUNTER 2024-12-14 19:48 | Emergency (ER) | payer MEDICARE, MEDICAID, SELFPAY ==
[2024-12-14 19:48] VITALS: BP 118/99; PULSE 95; RESP 18; TEMP 36.6; O2SAT 99
--- NOTE | 2024-12-14 20:19 | ED.RN ---
pt and pts sons to triage desk.pt stating she was leaving and would be back in the AM. I cannot wait this long. This nurse expressed understanding and pt thanked staff for care.
== END 2024-12-14 20:17 | disposition left against medical advice (07) ==
LOC: ED 20:26
PROVIDERS: PCP Family Medicine
DX: R53.1 Weakness (principal)

== ENCOUNTER 2024-12-15 10:50 | Emergency (ER) | payer MEDICARE, MEDICAID, SELFPAY ==
[2024-12-15 10:51] VITALS: BP 116/71; PULSE 78; RESP 16; TEMP 37.1; O2SAT 98
--- NOTE | 2024-12-15 11:14 | RAD_ITS ---
PROCEDURE: HIP, UNI W/ PELVIS 2-3 VIEWS 12/15/2024 REASON FOR EXAM: FALL, PAIN TECHNIQUE: Procedure Code: RAD Modality: DX Procedure: HIP, UNI W/ PELVIS 2-3 VIEWS Laterality: Right COMPARISON: March 2020. FINDINGS: CR pelvis/hips: Bones: Mild marginal osteophyte formation in both hips. Bony pelvis intact with no fractures. Right proximal femur otherwise negative. Left proximal femur otherwise negative. Joints: Mild degenerative changes of the pubis, stable. Degenerative changes sacroiliac joints also stable. Degenerative changes of the hips and pelvis. Soft tissues: Negative for vascular calcifications abdominal aortic branches. Adjacent soft tissues otherwise negative. Other: Remainder of exam negative. RAD/HIP, UNI W/ Pelvis 2-3 Views IMPRESSION: Stable degenerative changes of the hips and pelvis. Reading Location: [id number]
--- NOTE | 2024-12-15 11:14 | EDS_ITS ---
HPI History of Present Illness Chief Complaint: Fall Narrative Narrative: Patient is a 79-year-old female with past medical history of COPD, chronic kidney disease, hyperlipidemia, IBS, depression, osteoarthritis, osteopenia who presented to the emergency department with a chief complaint of fall. Patient states that yesterday morning around 8:00 she fell and hit her right hip against the door she states that she did not hit her head did not pass out she denies any blood thinner medications. Patient states that she came yesterday however there were too many people in the waiting room therefore she left and decided come in this morning. She states that she tried to take Tylenol codeine as she takes this every morning and slightly dull the pain but was still having significant pain therefore she came here. Patient states that she has been able to walk. States that normally she walks with a walker at baseline. She denies chest pain, shortness of breath, lightness, dizziness prior to fall [facility] Medical History Influenza A Abnormal urinalysis Elevated troponin Influenza A H1N1 infection COPD with acute exacerbation Hypoxia CKD stage 3b, GFR 30-44 ml/min Wears dentures Gastric reflux Shortness of breath on exertion Chronic cough Smoker Leg cramps History of stress test COPD (chronic obstructive pulmonary disease) COPD exacerbation History of left breast cancer Bladder incontinence Vitamin D deficiency IBS (irritable bowel syndrome) Hyperlipidemia GERD (gastroesophageal reflux disease) Depression Arthritis Skin cancer Cervical cancer Tobacco abuse Osteopenia Personal history of malignant neoplasm of breast Osteoarthritis Home Medications ?Medication ?Instructions ?Recorded ?Last Taken ?Type albuterol sulfate 90 mcg/actuation 2 puff inhalation Q 4H PRN Sob &/Or 01/29/21 Unknown History aerosol inhaler Wheezing acetaminophen 300 mg-codeine 60 mg 1 tab PO Q6H PRN pa in 10/12/22 Unknown History tablet docusate sodium 100 mg capsule 100 mg PO DAILY 3 06/11/24 History (Stool Softener) amlodipine 10 mg tablet 10 mg PO DAILY blood pressur e 06/12/24 06/11/24 History gabapentin 100 mg capsule 100 mg PO BID pain 06/12/24 06/11/24 History hydrocodone-acetaminophen 5-325mg 1 tab PO Q6H PRN Della n 06/12/24 Unknown History 5mg-325mg metoclopramide HCl 5 mg tablet 5 mg PO BID 06/12/24 History cephalexin 500 mg capsule 500 mg PO TID #15 caps 06/14 Unknown Rx nicotine 14 mg/24 hr daily 14 mg transdermal DAILY #30 ea 06/14/24 Unknown Rx transdermal patch oseltamivir 30 mg capsule 30 mg PO BID #5 caps 5 Unknown Rx prednisone 20 mg tablet 40 mg (2 x 20 mg) PO DAILY # 14 tabs 06/14/24 Unknown Rx Allergy/AdvReac Type Severity Reaction Status Date / Time ibuprofen AdvReac Nausea/Vom/ Verified 12/15/24 10:51 Diarrhea Family History Father Emphysema Heart disease Mother Seizures Breast cancer Surgical History History of esophagogastroduodenoscopy (EGD) (~02/2021) History of colonoscopy (~02/2021) History of lumpectomy History of knee replacement H/O: hysterectomy S/P cholecystectomy Social History household members: none housing: house Smoking Status: Current every day smoker tobacco type: cigarettes alcohol intake: never substance use type: does not use ROS ROS ED ROS Narrative Constitutional: Denies any fevers, chills, headaches, lightheadedness, dizziness Eyes: Denies double vision Cardiovascular: Denies chest pain Respiratory: No shortness of breath Abdomen: Denies nausea vomiting diarrhea : Denies urinary symptoms Neurological: Denies any numbness, tingling Musculoskeletal: Complains of right hip pain as noted above Skin: Denies any rashes or lesions EXAM Physical Exam Narrative Exam Narrative: General: Patient was lying in bed rest comfortably did not appear to be in acute distress Head: Atraumatic, normocephalic Eyes: PERRL bilaterally, EOMI bilaterally, no conjunctival injection noted Neck: Soft, supple, trachea midline Cardiovascular: Regular rate Musculoskeletal: All bony prominences palpated joints taken through full range of motion no pain elicited, +4/5 strength noted in the bilateral upper and lower extremities Extremities: Radial pulses +2/4 in bilateral extremities, no pedal edema on exam Neurological: Patient follow commands as she was at [facility] year is 2024 Skin: Warm, dry, intact no rashes or lesions noted Const Vital Signs: 12/15/24 10:51 12/15/24 12:34 12/15/24 12:34 Temperature 98.7 F Temperature Source Oral Pulse Rate 78 62 Respiratory Rate 16 18 Respiratory Effort Normal Non-Labored Respiratory Depth Normal Respiratory Pattern Normal Blood Pressure 116/71 124/72 H Blood Pressure Mean 86 89 Pulse Ox 98 92 Oxygen Delivery Method Room Air Room Air MDM MDM MDM Narrative Medical decision making narrative: Patient is a 79-year-old female who presented to the emergency department the chief complaint of right hip pain after a fall. On the differential diagnosis includes but not limited to hip fracture, contusion, hip dislocation. Once the workup is obtained reviewed she will be reevaluated. Patient be given [place] and Zofran. Patient's pelvis x-ray and hip x-ray reviewed by myself by radiology which showed no acute fracture or dislocation degenerative changes noted. Patient ambulated well here in the emergency department without difficulty. Patient states that she is feeling better she would like to go home at this point time. She is advised to follow-up with her doctor in the outpatient setting and return with worsening symptoms or concerns. She is agreeable to plan all question concerns answered she was discharged home in stable condition. Radiography Diagnostic Testing: Clinical Impression(s) from Imaging Studies Hip/Pelvis X-Ray 12/15/24 11:14 IMPRESSION: Stable degenerative changes of the hips and pelvis. Reading Location: [facility] Discharge Plan Triage Chief Complaint: Fall ED Provider: Gonzalo Ahumada Dx/Rx/DC Orders Clinical Impression: Hip pain, right, Osteoarthritis, Fall Prescriptions: No Action docusate sodium [Stool Softener] 100 mg capsule 100 mg PO DAILY acetaminophen-codeine 300-60 mg tablet 1 tab PO Q6H PRN (Reason: pain) Patient Comments: TAKES FROM [employer] albuterol sulfate 1 PUFF HFA aerosol inhaler 2 puff inhalation Q4H PRN (Reason: Sob &/Or Wheezing) amlodipine 10 mg tablet 10 mg PO DAILY metoclopramide HCl 5 mg tablet 5 mg PO BID gabapentin 100 mg capsule 100 mg PO BID hydrocodone-acetaminophen 5-325 mg tablet 1 tab PO Q6H PRN (Reason: Pain) Patient Comments: TAKES FROM TYLENOL #4 nicotine 14 mg/24 hr Patch 24 Hour 14 mg transdermal DAILY Qty: 30 0RF oseltamivir 30 mg Capsule 30 mg PO BID Qty: 5 0RF Rx Instructions: Start in the evening of 06/14/2024 prednisone 20 mg tablet 40 mg PO DAILY Qty: 14 0RF cephalexin 500 mg capsule 500 mg PO TID Qty: 15 0RF Rx Instructions: Start on 06/15/2024 Primary Care Provider: Augusta Hicks Referrals: Augusta Hicks DO [Primary Care Provider] - Activity Restrictions/Additional Instructions: Follow-up with your doctor in outpatient setting. Return with worsening symptoms or any other concerns. Your x-rays did not show any acute broken bones. Print Language: Romanian Disposition Disposition: Acute Care Hospital [facility]
[2024-12-15] MEDS: HYDROcodone Bitartrate/Apap 5/325 Tablet PO (11:36)
[2024-12-15 12:31] VITALS: BMI 27.2
[2024-12-15 12:34] VITALS: BP 124/72; PULSE 62; RESP 18; O2SAT 92
--- NOTE | 2024-12-15 12:45 | CM.ED ---
Social Work: Date of referral: 12/15/24 Reason for referral: Resources Referred by: Social Work identification Patient provided consent to social work visit. Also present was patient's middle son. chemical worker reviewed and left handouts for fall prevention and emergency response device with fall detection information. Patient verbalized she understood and expressed appreciation. Camille Rashid, HAND NAILER, LINE CONSTRUCTION ENGINEER
[2024-12-15 13:22] VITALS: BP 124/72; PULSE 62; RESP 18; TEMP 36.4; O2SAT 92
== END 2024-12-15 13:23 | disposition home or self-care (01) ==
PROVIDERS: Emergency Provider Emergency Medicine; PCP Family Medicine; Visit Provider Emergency Medicine
DX: M25.551 Pain in right hip (principal); J44.9 Chronic obstructive pulmonary disease, unspecified; N18.32 Chronic kidney disease, stage 3b; E78.5 Hyperlipidemia, unspecified; F17.210 Nicotine dependence, cigarettes, uncomplicated; M19.90 Unspecified osteoarthritis, unspecified site; W19.XXXA Unspecified fall, initial encounter; Z85.41 Personal history of malignant neoplasm of cervix uteri; Z85.828 Personal history of other malignant neoplasm of skin; Z79.899 Other long term (current) drug therapy; Z96.659 Presence of unspecified artificial knee joint; Z90.710 Acquired absence of both cervix and uterus; Z90.49 Acquired absence of other specified parts of digestive tract
CPT/HCPCS: 73502; 99283

== ENCOUNTER → 2025-01-07 | Outpatient (CLI) | payer MEDICARE, MEDICAID, SELFPAY ==
--- NOTE | 2025-01-07 09:38 | RAD_ITS ---
EXAM: XR Right Foot Complete, 3 or More Views CLINICAL INDICATION: PAIN IN FOOT TECHNIQUE: Frontal, lateral and oblique views of the right foot. COMPARISON: No relevant prior studies available. FINDINGS: BONES/JOINTS: Mild degenerative changes of the intertarsal joint. Moderate degenerative change of the 1st metacarpophalangeal joint. No acute fracture. No dislocation. SOFT TISSUES: Soft tissue swelling. RAD/Foot min 3 Views IMPRESSION: Degenerative changes as above. Reading Location: [id number]
--- NOTE | 2025-01-07 09:38 | RAD_ITS ---
EXAM: XR Right Foot Complete, 3 or More Views CLINICAL INDICATION: PAIN IN FOOT TECHNIQUE: Frontal, lateral and oblique views of the right foot. COMPARISON: No relevant prior studies available. FINDINGS: BONES/JOINTS: Mild degenerative changes of the intertarsal joint. Moderate degenerative change of the 1st metacarpophalangeal joint. No acute fracture. No dislocation. SOFT TISSUES: Soft tissue swelling. RAD/Foot min 3 Views IMPRESSION: Degenerative changes as above. Reading Location: [id number]
== END | disposition home or self-care (01) ==
LOC: MTRAD 09:37
PROVIDERS: PCP Family Medicine; Referring Provider Family Medicine; Visit Provider Family Medicine
DX: M79.671 Pain in right foot (principal); L97.519 Non-pressure chronic ulcer of other part of right foot with unspecified severity
CPT/HCPCS: 73630

== ENCOUNTER 2025-01-30 09:30 | Outpatient (RCR) | payer MEDICARE, MEDICAID, SELFPAY ==
[2025-01-16 09:28] VITALS: BP 116/55; PULSE 75; RESP 16; TEMP 36.3; BMI 26.4
--- NOTE | 2025-01-16 12:36 | HP.PCM_ITS ---
History of Present Illness Date of Service: 01/16/25 Chief Complaint: Right lateral foot wound for at least 1 month. History of Wound: 79-year-old that has this perfectly round open area on the right lateral foot with swelling and tenderness. X-rays were done were negative patient is not diabetic but is a smoker and probably suffers from peripheral vascular disease and she does have a lot of peripheral neuropathy patient was just started on Augmentin 2 days ago. We will obtain cultures today and follow patient up in 2 weeks and we will apply Aquacel down into the wound as best she can and moisten it and cover with gauze dressing she is also to wear Tubigrip's daily [facility] Medical History (Updated 01/16/25 @ 12:47 by Joyce Gregory [employer], [employer]) Neuropathy, lower extremity Tobacco abuse disorder Influenza A Abnormal urinalysis Elevated troponin Influenza A H1N1 infection COPD with acute exacerbation Hypoxia CKD stage 3b, GFR 30-44 ml/min Wears dentures Gastric reflux Shortness of breath on exertion Chronic cough Smoker Leg cramps History of stress test COPD (chronic obstructive pulmonary disease) COPD exacerbation History of left breast cancer Bladder incontinence Vitamin D deficiency IBS (irritable bowel syndrome) Hyperlipidemia GERD (gastroesophageal reflux disease) Depression Arthritis Skin cancer Cervical cancer Tobacco abuse Osteopenia Personal history of malignant neoplasm of breast Osteoarthritis Home Medications ?Medication ?Instructions ?Recorded ?Last Taken ?Type albuterol sulfate 90 mcg/actuation 2 puff inhalation Q 4H PRN Sob &/Or 01/29/21 Unknown History aerosol inhaler Wheezing acetaminophen 300 mg-codeine 60 mg 1 tab PO Q6H PRN pa in 10/12/22 Unknown History tablet docusate sodium 100 mg capsule 100 mg PO DAILY 3 06/11/24 History (Stool Softener) amlodipine 10 mg tablet 10 mg PO DAILY blood pressur e 06/12/24 06/11/24 History gabapentin 100 mg capsule 100 mg PO BID pain 06/12/24 06/11/24 History hydrocodone-acetaminophen 5-325mg 1 tab PO Q6H PRN Della n 06/12/24 Unknown History 5mg-325mg metoclopramide HCl 5 mg tablet 5 mg PO BID 06/12/24 History cephalexin 500 mg capsule 500 mg PO TID #15 caps 06/14 Unknown Rx nicotine 14 mg/24 hr daily 14 mg transdermal DAILY #30 ea 06/14/24 Unknown Rx transdermal patch oseltamivir 30 mg capsule 30 mg PO BID #5 caps 5 Unknown Rx prednisone 20 mg tablet 40 mg (2 x 20 mg) PO DAILY # 14 tabs 06/14/24 Unknown Rx Allergy/AdvReac Type Severity Reaction Status Date / Time ibuprofen AdvReac Nausea/Vom/ Verified 12/15/24 10:51 Diarrhea Family History Father Emphysema Heart disease Mother Seizures Breast cancer Surgical History History of esophagogastroduodenoscopy (EGD) (~02/2021) History of colonoscopy (~02/2021) History of lumpectomy History of knee replacement H/O: hysterectomy S/P cholecystectomy Social History household members: none housing: house Smoking Status: Current every day smoker tobacco type: cigarettes alcohol intake: never substance use type: does not use ROS Constitutional Constitutional: Reports systems reviewed and no addt'l complaints, except as documented Eyes Eyes: Reports systems reviewed and no addt'l complaints, except as documented ENT HEENT: Reports systems reviewed and no addt'l complaints, except as documented Cardiovascular Cardiovascular: Reports systems reviewed and no addt'l complaints, except as documented Respiratory/Chest Respiratory/Chest: Reports systems reviewed and no addt'l complaints, except as documented Gastrointestinal Gastrointestinal: Reports systems reviewed and no addt'l complaints, except as documented Genitourinary Genitourinary: Reports systems reviewed and no addt'l complaints, except as documented Musculoskeletal Musculoskeletal: Reports systems reviewed and no addt'l complaints, except as documented Integumentary Integumentary: Reports wounds and other Details: Open wound right lateral foot perfectly round Neurologic Neurologic: Reports systems reviewed and no addt'l complaints, except as documented Psychiatric Psychiatric: Reports systems reviewed and no addt'l complaints, except as documented Endocrine Endocrinology: Reports systems reviewed and no addt'l complaints, except as documented Hematologic/Lymphatic Hematologic/Lymphatic: Reports systems reviewed and no addt'l complaints, except as documented Allergic/Immunologic Allergic/Immunologic: Reports systems reviewed and no addt'l complaints, except as documented Vital Signs Vital Signs Vital Signs: 01/16/25 09:28 Temperature 97.4 F L Temperature Source Temporal Pulse Rate 75 Respiratory Rate 16 Blood Pressure 116/55 L Blood Pressure Mean 75 Blood Pressure Source Monitor Blood Pressure Position Sitting Blood Pressure Location Right Arm Oxygen Delivery Method Room Air Weight Weight: 140 lb Body Mass Index (BMI) 26.4 Physical Exam Const oriented x3 General Appearance: cooperative Exam Limitations: no limitations HEENT normocephalic Head and Scalp: normal to inspection Face and Sinus: normal facial exam Eyes General Eye: normal appearance of both eyes Neck full ROM General: normal visual inspection Resp normal respiratory effort Effort and Inspection: able to speak in complete sentences Auscultation: clear to auscultation bilaterally Cardio regular rate and regular rhythm Palpation: normal PMI Rate: regular rate Rhythm: regular rhythm Extremity General Extremity: normal exam except as noted and other findings Other Details: Open wound right lateral foot with some swelling and tenderness around the area x-rays were negative Skin no rashes or lesions noted Neuro oriented x3 Psych Appearance: grossly normal Speech: normal speech Thought Content: normal thought content Judgement: judgement good Debridement Note Debridement Note Wound debrided: Right lateral foot Laterality: Right Type of Debridement: Excisional debridement Anesthesia Used: 5% Lidocaine Gel Depth: Down to and including healthy tissue and in the subcutaneous layer Percentage of wound debrided: 100 Instrument Used: 3mm curette Tissue Removed: Devitalized fibrin Severity: Fat Layer Exposed Amount of bleeding with debridement: Mild Bleeding Controlled with: Compression and gauze Patient tolerated procedure: Patient tolerated procedure well Post-Debridement Measurements and Additional Note: Post-Debridement Measurements/Treatment - Nurse 1 - General Ulcer Assessment Start: 01/16/25 09:28 Freq: Status: Active Protocol: [email or web address].[email or web address] Activity Type Activity Date Activity User E-sign Co-sign Detail Recorded Client Recorded Date Recorded By Document 01/16/25 09:28 [id number] 01/16/25 09:42 CP 01/16/25 09:28 - Today's Visit Information Type of service Initial Visit Arrival Mode Ambulatory, Walker Patient Identification Verified (Name & Yes ) Patient Requires Transmission-Based No Precautions Height and Weight Height 5 ft 1 in Weight 140 lb Weight in Pounds 140.0 lbs Weight Measurement Method Stated by Patient Body Mass Index (BMI) 26.4 BMI Classification Overweight Vital Signs Temperature (97.8 F-99.1 F) 97.4 F L Temperature Source Temporal Pulse Rate (60-100) 75 Pulse Location Monitor Respiratory Rate (12-18) 16 Respiratory rate source Observation Oxygen Delivery Method Room Air Blood Pressure (90/60-120/80) 116/55 L Blood Pressure Mean 75 Source Monitor Position Sitting Blood Pressure Location Right Arm History Since Last Visit- (Skip if this is Patient's initial visit) Left Footwear Regular Shoe Right Footwear Regular Shoe Pain Scale: 0-10 Numeric Is Patient Pain Free? No right lateral foot -Description Sharp,Burning, Aching -Duration (hours) Acute -Pain Behavior Facial Grimacing -Pain Aggravating Factors Palpation -Alleviating Factors/Interventions Medication, Distraction Lower Extremity Assessment/ Foot Assessment/ Toe Nail Assessment Left -Popliteal Doppler Monophasic -Extremity Color Normal -Hair Growth on Legs Yes -Hair Growth on Toes No -Temperature of Extremity Cool -Capillary Refill Less than 3 Seconds -Dependent Rubor No -Blanched when Elevated No -Lipodermatosclerosis No -Charcot Joint No -Prior Amputation No -Thick Yes -Discolored Yes -Deformed Yes -Improper Length & Hygeine Yes Right -Posterior Tibial Doppler Monophasic -Dorsalis Pedis Palpable Yes -Hair Growth on Legs Yes -Hair Growth on Toes No -Temperature of Extremity Cool -Capillary Refill Less than 3 Seconds -Dependent Rubor No -Blanched when Elevated No -Lipodermatosclerosis No -Charcot Joint No -Prior Amputation No -Thick Yes -Discolored Yes -Deformed Yes -Improper Length & Hygeine Yes Neuropathy Assessment Feet - Top Side and Bottom <Entered> (a) Communication Assessment Preferred language Indian Able to Read Yes Able to Write Yes Right Hearing Abillity Normal Left Hearing Abillity Normal Visual Assistive Devices None Teaching Assessment Preferences Verbal, Demonstration Barriers to Learning Knowledge Deficit Readiness To Learn Excellent Willingness to Engage in Self Management High Activies Readiness to Engage in Self Management High Activities Anxiety Level Anxious Cooperation Cooperative Perception Coherent Interest in Health Problem Asks Questions Education Importance Acknowledges Need Does Patient Smoke tobacco or other Yes substances Smoking Status Current every day smoker Is Patient Diabetic No Functional Assessment Recent Decline in Ability to Perform Denies Any Declines Assistive Device With Patient Yes Culture/Zoroastrianism/[employer] Cultural/Zoroastrianism Needs that may affect No Treatment Plan Would you allow our [facility] aws consultant to No meet you for the purpose of spiritual/ emotional support? [employer] Supervisor to contact place of baptism No Teaching: Wound Center *Debridement -Person Taught Patient -Teaching Method Discussion -Response to teaching Verbalize Understanding (a) 1 - + WC - Nurse 1 - General Ulcer Measurement Start: 01/16/25 09:28 Freq: Status: Active Protocol: Activity Type Activity Date Activity User E-sign Co-sign Detail Recorded Client Recorded Date Recorded By Document 01/16/25 09:28 CP [id number] 01/16/25 09:42 CP 01/16/25 09:28 Wound Center Nurse 1 right lateral foot -Current Size (cm) - Length 0.5 -Current Size (cm) - Width 0.5 -Current Size (cm) - Depth 0.1 -Total Square Cm 0.25 -Date of Last Picture (Recall this 01/16/25 field) -Photo Taken Yes -Epithelialization None Present -Tunneling No -Undermining/Tunneling No -Exudate Amt None Present -Wound Margin Flat & Intact -Granulation Amt None Present (0 %) -Slough/Fibrin Yes -Necrosis Amt Large (67-100%) -Necrotic Tissue Type Eschar -Structure Exposed N/A -Texture (Luz Maria-wound Skin Appearance) No Abnormality -Moisture (Luz Maria-wound Skin Appearance) No Abnormality -Color (Luz Maria-wound Skin Appearance) No Abnormality -Temperature (Luz Maria-wound Skin No Abnormality Appearance) (Pt Warm) -Tenderness on Palpation (Luz Maria-wound Yes Skin Appearance) -Ulcer Cleansing Rinsed/ Irrigated with Saline -Foul Odor after Cleansing No -Anesthetic Used 5% Lidocaine Gel WC - Nurse 2 - General Ulcer CM Notes Start: 01/16/25 09:28 Freq: Status: Active Protocol: Activity Type Activity Date Activity User E-sign Co-sign Detail Recorded Client Recorded Date Recorded By Document 01/16/25 09:55 DS [id number] 01/16/25 09:59 DS 01/16/25 09:55 Wound Center Nurse 2 -Time 09:55 -Correct Patient Yes -Correct Side, Site, Position Yes -Correct Procedure Yes -Procedure Performed Yes -Type of Procedure Debridement -Clinical Debridement Subcutaneous -Tissue Removed Subcutaneous -Post Debridement (cm) - Length 0.3 -Post Debridement (cm) - Width 0.3 -Post Debridement (cm) - Depth 0.2 -Total Square (Post) (cm) 0.09 -Area of Debridement (cm) - Length 0.3 -Area of Debridement (cm) - Width 0.3 -Total Square (Area) (cm) 0.09 -Tunneling No -Undermining/Tunneling No -Circular Undermining No -Wound/Ulcer Outcome Not Healed -Ulcer Cleansing Rinsed/ Irrigated with Saline -Foul Odor after Cleansing No -Bioengineered Tissue No -Bleeding Controlled with Pressure -Treatment Response Procedure Tolerated Well -Debridement - Subq, 1st 20sq cm Yes Pain Scale: 0-10 Numeric Is Patient Pain Free? Yes - Nurse 3 - General Ulcer D/C NN Start: 01/16/25 09:28 Freq: Status: Active Protocol: Activity Type Activity Date Activity User E-sign Co-sign Detail Recorded Client Recorded Date Recorded By Document 01/16/25 10:21 RB [id number] 01/16/25 10:22 RB 01/16/25 10:21 Wound Care Center Nurse 3 right lateral foot -Ulcer Cleansing Rinsed/ Irrigated with Saline -Primary Dressing Applied Aquacel AG 4x4 -Primary Dressing Covered/Secured with Dry Gauze,Dry Gauze & Roll Gauze,Secured with Tape -Aquacel AG 4x4 1 RLE -Tubular Bandage Single Layer -Size of Tubigrip Used Size D -Size D ($) 1 Treatment Response Procedure Tolerated Well Pain Scale: 0-10 Numeric Is Patient Pain Free? Yes - Visit Discharge Discharge Condition Stable Ambulatory Status Ambulatory Transportation Private Auto Medication Reconcilliation completed & No provided to patient/care provider Clinical Summary of Care Provided Yes Assessment/Plan Assessment/Plan (1) COPD exacerbation: CODE(S): J44.1 - Chronic obstructive pulmonary disease with (acute) exacerbation (2) Tobacco abuse disorder: CODE(S): Z72.0 - Tobacco use (3) Neuropathy, lower extremity: CODE(S): G57.90 - Unspecified mononeuropathy of unspecified lower limb QUALIFIERS: Laterality: right Qualified Code(s): G57.91 - Unspecified mononeuropathy of right lower limb (4) Peripheral vascular disease of extremity with claudication: CODE(S): I73.9 - Peripheral vascular disease, unspecified (5) Chronic ulcer of right foot: CODE(S): L97.519 - Non-pressure chronic ulcer of other part of right foot with unspecified severity QUALIFIERS: Non-pressure ulcer stage: with fat layer exposed Q ualified Code(s): L97.512 - Non-pressure chronic ulcer of other part of right foot with fat layer exposed PLAN: Wash foot with antibacterial soap and water pat dry and apply Aquacel extra to wound base moistened and cover with gauze dressing every day Cultures were obtained and will be called Patient may continue taking Augmentin prescribed primary care doctor Patient needs to wear a compression stocking to the right leg Follow-up in 2 weeks
--- NOTE | 2025-01-17 09:26 | WC ---
PHOTO-RIGHT LATERAL LEG 01/16/25
[2025-01-17 14:14] VITALS: BP 134/81; RESP 13; TEMP 36.4; BMI 26.4
[2025-01-18 12:17] VITALS: BP 131/73; PULSE 94; RESP 18; TEMP 36.7; BMI 26.4
[2025-01-30 10:02] VITALS: BP 115/62; PULSE 93; RESP 16; TEMP 36.8; BMI 26.4
--- NOTE | 2025-01-30 12:29 | PN.PCM_ITS ---
History of Present Illness Date of Service: 01/30/25 Chief Complaint: Right lateral foot wound for at least 1 month. History of Wound: 79-year-old that has this perfectly round open area on the right lateral foot with swelling and tenderness. X-rays were done were negative patient is not diabetic but is a smoker and probably suffers from peripheral vascular disease and she does have a lot of peripheral neuropathy patient was just started on Augmentin 2 days ago. We will obtain cultures today and follow patient up in 2 weeks and we will apply Aquacel down into the wound as best she can and moisten it and cover with gauze dressing she is also to wear Tubigrip's daily Progress of Wound: The cultures came back very rare staph infections so we did not treat her the wound itself looks better it is more shallow and not as deep c d still operator to touch and to debride. We been using Aquacel silver and now that it is clean we will change her over to fibrocol moistened and dry dressing over top. Subjective Subjective Patient thinks it is bigger but it really is more shallow. Objective Data Objective Data Looks good last angry looking not quite as tender as it was the first time I met her and it is improving it is becoming more shallow and less depth tolerating dressing changes okay we will change from the Aquacel extra to the fibrocol Vital Signs: Vital Signs Temp Pulse Resp BP O2 Del Method 98.2 F 93 16 115/62 Room Air 01/30/25 10:02 01/30/25 10:02 01/30/25 10:02 01/30/25 10:02 01/18/25 12:17 Oxygen Delivery Method Room Air Weight: 140 lb Body Mass Index (BMI) 26.4 Lab / Micro Data Micro: Microbiology 01/16/25 09:59 Wound - Right Foot Gram Stain - Final 01/16/25 09:59 Wound - Right Foot Wound Culture - Final Staphylococcus epidermidis 01/16/25 09:59 Wound - Right Foot Anaerobic Culture - Final No growth in 5 days. Physical Exam Const oriented x3 General Appearance: cooperative Exam Limitations: no limitations HEENT normocephalic Head and Scalp: normal to inspection Face and Sinus: normal facial exam Eyes General Eye: normal appearance of both eyes Neck full ROM General: normal visual inspection Resp normal respiratory effort Effort and Inspection: able to speak in complete sentences Auscultation: clear to auscultation bilaterally Cardio regular rate and regular rhythm Palpation: normal PMI Rate: regular rate Rhythm: regular rhythm Extremity General Extremity: normal exam except as noted and other findings Other Details: Open wound right lateral foot with some swelling and tenderness around the area x-rays were negative Skin no rashes or lesions noted Neuro oriented x3 Psych Appearance: grossly normal Speech: normal speech Thought Content: normal thought content Judgement: judgement good Debridement Note Debridement Note Wound debrided: Right lateral foot Laterality: Right Type of Debridement: Excisional debridement Anesthesia Used: 5% Lidocaine Gel Depth: Down to and including healthy tissue and in the subcutaneous layer Percentage of wound debrided: 100 Instrument Used: 3mm curette Tissue Removed: Devitalized tissue and fibrin Severity: Fat Layer Exposed Amount of bleeding with debridement: Mild Bleeding Controlled with: Compression and gauze Patient tolerated procedure: Patient tolerated procedure well Post-Debridement Measurements and Additional Note: Post-Debridement Measurements/Treatment WC - Nurse 1 - General Ulcer Assessment Start: 01/16/25 09:28 Freq: Status: Active Protocol: DONNIE Activity Type Activity Date Activity User E-sign Co-sign Detail Recorded Client Recorded Date Recorded By Document 01/16/25 09:28 CP [id number] 01/16/25 09:42 CP Document 01/17/25 14:14 ML [id number] 01/17/25 14:26 ML Document 01/18/25 12:17 DS [id number] 01/18/25 12:28 DS Document 01/30/25 10:02 CP [id number] 01/30/25 10:04 CP 01/16/25 01/17/25 01/18/25 09:28 14:14 12:17 - Today's Visit Information Type of service Initial Visit Nurse-only Nurse-only Visit Visit Arrival Mode Ambulatory, Ambulatory, Ambulatory, Walker Wheelchair Walker Transfer Assistance None Patient Identification Verified (Name & Yes Yes Yes ) Patient Requires Transmission-Based No No No Precautions Safety Precautions Fall Prevention Height and Weight Height 5 ft 1 in Weight 140 lb Weight in Pounds 140.0 lbs Weight Measurement Method Stated by Patient Body Mass Index (BMI) 26.4 26.4 26.4 BMI Classification Overweight Overweight Overweight Vital Signs Temperature (97.8 F-99.1 F) 97.4 F L 97.6 F L 98.1 F Temperature Source Temporal Temporal Temporal Pulse Rate (60-100) 75 94 Pulse Location Monitor Monitor Respiratory Rate (12-18) 16 13 18 Respiratory rate source Observation Observation Observation Oxygen Delivery Method Room Air Room Air Blood Pressure (90/60-120/80) 116/55 L 134/81 H 131/73 H Blood Pressure Mean (mm Hg) 75 98 92 Source Monitor Monitor Monitor Position Sitting Sitting Sitting Blood Pressure Location Right Arm Right Arm Right Arm History Since Last Visit- (Skip if this is Patient's initial visit) Have you changed medications since your last visit? Any new allergies or adverse reactions Had a fall/change in ADL's that may increase risk of falls Signs or symptoms of abuse and/or neglect since last visit Have you been in the hospital since your last visit? Has dressing in place as prescribed Has compression in place as prescribed Has offloadiing in place as prescribed Experienced any changes in pain level or management Left Footwear Regular Shoe Right Footwear Regular Shoe Pain Scale: 0-10 Numeric Is Patient Pain Free? No Yes Yes right lateral foot -Description Sharp,Burning, Aching -Duration (hours) Acute -Pain Behavior Facial Grimacing -Pain Aggravating Factors Palpation -Alleviating Factors/Interventions Medication, Distraction Lower Extremity Assessment/ Foot Assessment/ Toe Nail Assessment Left -Popliteal Doppler Monophasic -Extremity Color Normal -Hair Growth on Legs Yes -Hair Growth on Toes No -Temperature of Extremity Cool -Capillary Refill Less than 3 Seconds -Dependent Rubor No -Blanched when Elevated No -Lipodermatosclerosis No -Charcot Joint No -Prior Amputation No -Thick Yes -Discolored Yes -Deformed Yes -Improper Length & Hygeine Yes Right -Posterior Tibial Doppler Monophasic -Dorsalis Pedis Palpable Yes -Hair Growth on Legs Yes -Hair Growth on Toes No -Temperature of Extremity Cool -Capillary Refill Less than 3 Seconds -Dependent Rubor No -Blanched when Elevated No -Lipodermatosclerosis No -Charcot Joint No -Prior Amputation No -Thick Yes -Discolored Yes -Deformed Yes -Improper Length & Hygeine Yes Neuropathy Assessment Feet - Top Side and Bottom <Entered> (a) Communication Assessment Preferred language Colombian Able to Read Yes Able to Write Yes Right Hearing Abillity Normal Left Hearing Abillity Normal Visual Assistive Devices None Teaching Assessment Preferences Verbal, Demonstration Barriers to Learning Knowledge Deficit Readiness To Learn Excellent Willingness to Engage in Self Management High Activies Readiness to Engage in Self Management High Activities Anxiety Level Anxious Cooperation Cooperative Perception Coherent Interest in Health Problem Asks Questions Education Importance Acknowledges Need Does Patient Smoke tobacco or other Yes substances Smoking Status Current every day smoker Is Patient Diabetic No Functional Assessment Recent Decline in Ability to Perform Denies Any Declines Assistive Device With Patient Yes Culture/Alevism/[employer] Cultural/Alevism Needs that may affect No Treatment Plan Would you allow our hospital medical accounts receivable specialist to No meet you for the purpose of spiritual/ emotional support? Manager [employer] to contact place of congregation No Teaching: Wound Center *Debridement -Person Taught Patient -Teaching Method Discussion -Response to teaching Verbalize Understanding 01/30/25 10:02 WC - Today's Visit Information Type of service Follow-up Visit (Physician/[employer]ER ) Arrival Mode Ambulatory, Walker Transfer Assistance Patient Identification Verified (Name & ) Patient Requires Transmission-Based Precautions Safety Precautions Height and Weight Height Weight Weight in Pounds Weight Measurement Method Body Mass Index (BMI) 26.4 BMI Classification Overweight Vital Signs Temperature (97.8 F-99.1 F) 98.2 F Temperature Source Temporal Pulse Rate (60-100) 93 Pulse Location Monitor Respiratory Rate (12-18) 16 Respiratory rate source Observation Oxygen Delivery Method Blood Pressure (90/60-120/80) 115/62 Blood Pressure Mean (mm Hg) 79 Source Monitor Position Sitting Blood Pressure Location Left Arm History Since Last Visit- (Skip if this is Patient's initial visit) Have you changed medications since your No last visit? Any new allergies or adverse reactions No Had a fall/change in ADL's that may No increase risk of falls Signs or symptoms of abuse and/or No neglect since last visit Have you been in the hospital since your No last visit? Has dressing in place as prescribed Yes Has compression in place as prescribed Yes Has offloadiing in place as prescribed N/A Experienced any changes in pain level or No management Left Footwear Slipper Right Footwear Slipper Pain Scale: 0-10 Numeric Is Patient Pain Free? No right lateral foot -Description -Duration (hours) -Pain Behavior -Pain Aggravating Factors -Alleviating Factors/Interventions Lower Extremity Assessment/ Foot Assessment/ Toe Nail Assessment Left -Popliteal Doppler -Extremity Color -Hair Growth on Legs -Hair Growth on Toes -Temperature of Extremity -Capillary Refill -Dependent Rubor -Blanched when Elevated -Lipodermatosclerosis -Charcot Joint -Prior Amputation -Thick -Discolored -Deformed -Improper Length & Hygeine Right -Posterior Tibial Doppler -Dorsalis Pedis Palpable -Hair Growth on Legs -Hair Growth on Toes -Temperature of Extremity -Capillary Refill -Dependent Rubor -Blanched when Elevated -Lipodermatosclerosis -Charcot Joint -Prior Amputation -Thick -Discolored -Deformed -Improper Length & Hygeine Neuropathy Assessment Feet - Top Side and Bottom Communication Assessment Preferred language Able to Read Able to Write Right Hearing Abillity Left Hearing Abillity Visual Assistive Devices Teaching Assessment Preferences Barriers to Learning Readiness To Learn Willingness to Engage in Self Management Activies Readiness to Engage in Self Management Activities Anxiety Level Cooperation Perception Interest in Health Problem Education Importance Does Patient Smoke tobacco or other substances Smoking Status Is Patient Diabetic Functional Assessment Recent Decline in Ability to Perform Assistive Device With Patient Culture/Alevism/[employer] Cultural/Alevism Needs that may affect Treatment Plan Would you allow our hospital medical accounts receivable specialist to meet you for the purpose of spiritual/ emotional support? Manager Food Beverage to contact place of congregation Teaching: Wound Center *Debridement -Person Taught -Teaching Method -Response to teaching (a) 1 - + WC - Nurse 1 - General Ulcer Measurement Start: 01/16/25 09:28 Freq: Status: Active Protocol: Activity Type Activity Date Activity User E-sign Co-sign Detail Recorded Client Recorded Date Recorded By Document 01/16/25 09:28 CP [id number] 01/16/25 09:42 CP Document 01/30/25 10:02 CP [id number] 01/30/25 10:04 CP 01/16/25 01/30/25 09:28 10:02 Wound Center Nurse 1 right lateral foot -Current Size (cm) - Length 0.5 0.3 -Current Size (cm) - Width 0.5 0.5 -Current Size (cm) - Depth 0.1 0.1 -Total Square Cm 0.25 0.15 -Date of Last Picture (Recall this 01/16/25 01/30/25 field) -Photo Taken Yes Yes -Epithelialization None Present None Present -Tunneling No -Undermining/Tunneling No -Exudate Amt None Present -Wound Margin Flat & Intact -Granulation Amt None Present (0 None Present (0 %) %) -Slough/Fibrin Yes -Necrosis Amt Large (67-100%) Large (67-100%) -Necrotic Tissue Type Eschar Eschar -Structure Exposed N/A N/A -Texture (Luz Maria-wound Skin Appearance) No Abnormality No Abnormality -Moisture (Luz Maria-wound Skin Appearance) No Abnormality Dry/Scaly -Color (Luz Maria-wound Skin Appearance) No Abnormality No Abnormality, Not Assessed -Temperature (Luz Maria-wound Skin No Abnormality Appearance) (Pt Warm) -Tenderness on Palpation (Luz Maria-wound Yes Yes Skin Appearance) -Ulcer Cleansing Rinsed/ Rinsed/ Irrigated with Irrigated with Saline Saline -Foul Odor after Cleansing No -Anesthetic Used 5% Lidocaine 5% Lidocaine Gel Gel Right Calf (cm) 28 Right Ankle (cm) 19 WC - Nurse 2 - General Ulcer CM Notes Start: 01/16/25 09:28 Freq: Status: Active Protocol: Activity Type Activity Date Activity User E-sign Co-sign Detail Recorded Client Recorded Date Recorded By Document 01/16/25 09:55 DS [id number] 01/16/25 09:59 DS Document 01/30/25 10:34 DS [id number] 01/30/25 10:36 DS 01/16/25 01/30/25 09:55 10:34 Wound Center Nurse 2 right lateral foot -Time 09:55 10:34 -Correct Patient Yes Yes -Correct Side, Site, Position Yes Yes -Correct Procedure Yes Yes -Procedure Performed Yes Yes -Type of Procedure Debridement Debridement -Clinical Debridement Subcutaneous Subcutaneous -Tissue Removed Subcutaneous Subcutaneous -Post Debridement (cm) - Length 0.3 0.4 -Post Debridement (cm) - Width 0.3 0.4 -Post Debridement (cm) - Depth 0.2 0.2 -Total Square (Post) (cm) 0.09 0.16 -Area of Debridement (cm) - Length 0.3 0.4 -Area of Debridement (cm) - Width 0.3 0.4 -Total Square (Area) (cm) 0.09 0.16 -Tunneling No No -Undermining/Tunneling No No -Circular Undermining No No -Wound/Ulcer Outcome Not Healed Not Healed -Ulcer Cleansing Rinsed/ Rinsed/ Irrigated with Irrigated with Saline Saline -Foul Odor after Cleansing No No -Bioengineered Tissue No No -Bleeding Controlled with Pressure -Treatment Response Procedure Procedure Tolerated Well Tolerated Well -Debridement - Subq, 1st 20sq cm Yes Yes Pain Scale: 0-10 Numeric Is Patient Pain Free? Yes No right lateral foot -Description Throbbing -Intensity 5 -Duration (hours) Chronic -Pain Behavior Moaning,Facial Grimacing -Pain Aggravating Factors Debridement -Alleviating Factors/Interventions Will continue to monitor WC - Nurse 3 - General Ulcer D/C NN Start: 01/16/25 09:28 Freq: Status: Active Protocol: Activity Type Activity Date Activity User E-sign Co-sign Detail Recorded Client Recorded Date Recorded By Document 01/16/25 10:21 RB [id number] 01/16/25 10:22 RB Document 01/17/25 14:14 ML [id number] 01/17/25 14:26 ML Document 01/18/25 12:17 DS [id number] 01/18/25 12:28 DS Document 01/30/25 10:51 TS [id number] 01/30/25 10:52 TS 01/16/25 01/17/25 01/18/25 10:21 14:14 12:17 Wound Care Center Nurse 3 right lateral foot -Ulcer Cleansing Rinsed/ Soap and Water Soap and Water Irrigated with Saline -Primary Dressing Applied Aquacel AG 4x4 Aquacel Extra Aquacel AG 4x4 -Primary Dressing Covered/Secured with Dry Gauze,Dry Dry Gauze, Gauze & Roll Secured with Gauze,Secured Tape with Tape -Patient Supplied Dressing Yes Yes -Aquacel Extra 0 -Aquacel AG 4x4 1 0 -Fibracol Plus 4x4 -Wound Comment(s) replaced tubigrip with pts own RLE -Tubular Bandage Single Layer Single Layer -Size of Tubigrip Used Size D Size D -Size D ($) 1 1 Treatment Response Procedure Tolerated Well Pain Scale: 0-10 Numeric Is Patient Pain Free? Yes Yes Yes WC - Visit Discharge Discharge Condition Stable Stable Ambulatory Status Ambulatory Ambulatory, Walker Transportation Private Auto Private Auto Medication Reconcilliation completed & No provided to patient/care provider Clinical Summary of Care Provided Yes 01/30/25 10:51 Wound Care Center Nurse 3 right lateral foot -Ulcer Cleansing Rinsed/ Irrigated with Saline -Primary Dressing Applied Fibracol Plus 4x4 -Primary Dressing Covered/Secured with Dry Gauze & Roll Gauze, Secured with Tape -Patient Supplied Dressing -Aquacel Extra -Aquacel AG 4x4 -Fibracol Plus 4x4 1 -Wound Comment(s) RLE -Tubular Bandage Single Layer -Size of Tubigrip Used Size D -Size D ($) 1 Treatment Response Pain Scale: 0-10 Numeric Is Patient Pain Free? Yes WC - Visit Discharge Discharge Condition Stable Ambulatory Status Ambulatory, Walker Transportation Private Auto Medication Reconcilliation completed & No provided to patient/care provider Clinical Summary of Care Provided Yes Assessment/Plan Assessment/Plan (1) COPD exacerbation: CODE(S): J44.1 - Chronic obstructive pulmonary disease with (acute) exacerbation (2) Tobacco abuse disorder: CODE(S): Z72.0 - Tobacco use (3) Neuropathy, lower extremity: CODE(S): G57.90 - Unspecified mononeuropathy of unspecified lower limb QUALIFIERS: Laterality: right Qualified Code(s): G57.91 - Unspecified mononeuropathy of right lower limb (4) Peripheral vascular disease of extremity with claudication: CODE(S): I73.9 - Peripheral vascular disease, unspecified (5) Chronic ulcer of right foot: CODE(S): L97.519 - Non-pressure chronic ulcer of other part of right foot with unspecified severity QUALIFIERS: Non-pressure ulcer stage: with fat layer exposed Qualified Code(s): L97.512 - Non-pressure chronic ulcer of other part of right foot with fat layer exposed PLAN: Wash foot with antibacterial soap and water pat dry and apply Fibrocol to wound base moistened and cover with gauze dressing every day Patient needs to wear a compression stocking to the right leg Follow-up in 2 weeks
--- NOTE | 2025-01-31 10:34 | WC ---
PHOTO-RIGHT LAT FOOT 01/30/25
== END 2025-02-01 23:59 | disposition home or self-care (01) ==
LOC: WC 09:30
PROVIDERS: PCP Family Medicine; Referring Provider Family Medicine; Visit Provider Nurse Practitioner
DX: L97.512 Non-pressure chronic ulcer of other part of right foot with fat layer exposed (principal); J44.1 Chronic obstructive pulmonary disease with (acute) exacerbation; N18.32 Chronic kidney disease, stage 3b; I73.9 Peripheral vascular disease, unspecified; F17.210 Nicotine dependence, cigarettes, uncomplicated; Z82.49 Family history of ischemic heart disease and other diseases of the circulatory system; G62.9 Polyneuropathy, unspecified; E78.5 Hyperlipidemia, unspecified; G57.91 Unspecified mononeuropathy of right lower limb; Z90.49 Acquired absence of other specified parts of digestive tract; Z90.710 Acquired absence of both cervix and uterus; Z85.3 Personal history of malignant neoplasm of breast
CPT/HCPCS: 11042; 87070; 87075; 87077; 87186; 87205; 99212; 99213; G0463

== ENCOUNTER 2025-02-20 09:45 | Outpatient (RCR) | payer MEDICARE, MEDICAID, SELFPAY ==
[2025-02-13 10:02] VITALS: BP 135/63; PULSE 89; RESP 18; TEMP 37.4
--- NOTE | 2025-02-13 10:24 | PN.PCM_ITS ---
History of Present Illness Date of Service: 02/13/25 Chief Complaint: Right lateral foot wound for at least 1 month. History of Wound: 79-year-old that has this perfectly round open area on the right lateral foot with swelling and tenderness. X-rays were done were negative patient is not diabetic but is a smoker and probably suffers from peripheral vascular disease and she does have a lot of peripheral neuropathy patient was just started on Augmentin 2 days ago. We will obtain cultures today and follow patient up in 2 weeks and we will apply Aquacel down into the wound as best she can and moisten it and cover with gauze dressing she is also to wear Tubigrip's daily Progress of Wound: The wound itself is not really changed it is a small round very tender erythematous area wound and not sure how it appeared it was from her shoes rubbing or what but the bone does seem to be bigger and sticking out more on that foot than the other foot. We will get a consult with podiatry and see what he thinks will continue using the fibrin call in the meantime and follow her up next in 2 weeks Subjective Subjective Patient was agreeable to plan and she will see podiatry next week and then me the following week Objective Data Objective Data Cultures were negative and x-rays were negative. Still very tender to touch and palpate and debride will get a consult with podiatry and make sure not missing anything I do know what else to do. Will continue using the Fibracol dressings and padding and protecting Vital Signs: Vital Signs Temp Pulse Resp BP O2 Del Method 99.3 F H 89 18 135/63 H Room Air 02/13/25 10:02 02/13/25 10:02 02/13/25 10:02 02/13/25 10:02 02/13/25 10:02 Oxygen Delivery Method Room Air Lab / Micro Data Attestation: I reviewed the patient's lab results. Physical Exam Const oriented x3 General Appearance: cooperative Exam Limitations: no limitations HEENT normocephalic Head and Scalp: normal to inspection Face and Sinus: normal facial exam Eyes General Eye: normal appearance of both eyes Neck full ROM General: normal visual inspection Resp normal respiratory effort Effort and Inspection: able to speak in complete sentences Auscultation: clear to auscultation bilaterally Cardio regular rate and regular rhythm Palpation: normal PMI Rate: regular rate Rhythm: regular rhythm Extremity General Extremity: normal exam except as noted and other findings Other Details: Open wound right lateral foot with some swelling and tenderness around the area x-rays were negative Skin no rashes or lesions noted Neuro oriented x3 Psych Appearance: grossly normal Speech: normal speech Thought Content: normal thought content Judgement: judgement good Debridement Note Debridement Note Wound debrided: Right lateral foot Laterality: Right Type of Debridement: Excisional debridement Anesthesia Used: 5% Lidocaine Gel Depth: Down to and including healthy tissue and in the subcutaneous layer Percentage of wound debrided: 100 Instrument Used: 3mm curette Tissue Removed: Devitalized tissue and fibrin Severity: Fat Layer Exposed Amount of bleeding with debridement: Mild Bleeding Controlled with: Compression and gauze Patient tolerated procedure: Patient tolerated procedure well Post-Debridement Measurements and Additional Note: Post-Debridement Measurements/Treatment - Nurse 1 - General Ulcer Assessment Start: 02/13/25 10:01 Freq: Status: Active Protocol: ROGER.JAYDEN Activity Type Activity Date Activity User E-sign Co-sign Detail Recorded Client Recorded Date Recorded By Document 02/13/25 10:02 [id number] 02/13/25 10:04 02/13/25 10:02 - Today's Visit Information Type of service Follow-up Visit (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 ) Arrival Mode Ambulatory Transfer Assistance None Patient Identification Verified (Name & Yes ) Patient Requires Transmission-Based No Precautions Vital Signs Temperature (97.8 F-99.1 F) 99.3 F H Temperature Source Temporal Pulse Rate (60-100) 89 Pulse Location Monitor Respiratory Rate (12-18) 18 Respiratory rate source Observation Oxygen Delivery Method Room Air Blood Pressure (90/60-120/80) 135/63 H Blood Pressure Mean (mm Hg) 87 Source Monitor Position Semi-Fowlers Blood Pressure Location Left Arm History Since Last Visit- (Skip if this is Patient's initial visit) Have you changed medications since your No last visit? Any new allergies or adverse reactions No Had a fall/change in ADL's that may No increase risk of falls Signs or symptoms of abuse and/or No neglect since last visit Have you been in the hospital since your No last visit? Has dressing in place as prescribed Yes Has compression in place as prescribed Yes Has offloadiing in place as prescribed N/A Experienced any changes in pain level or No management Left Footwear Regular Shoe Right Footwear Regular Shoe Pain Scale: 0-10 Numeric Is Patient Pain Free? No R foot -Description Aching -Intensity 4 -Duration (hours) Acute -Pain Behavior Irritability, Withdrawal from Touch -Pain Aggravating Factors Exercise/ Activity -Alleviating Factors/Interventions Medication -Effectiveness of Alleviating Factor/ Moderately Intervention effective WC - Nurse 1 - General Ulcer Measurement Start: 02/13/25 10:01 Freq: Status: Active Protocol: Activity Type Activity Date Activity User E-sign Co-sign Detail Recorded Client Recorded Date Recorded By Document 02/13/25 10:02 RB [id number] 02/13/25 10:04 RB 02/13/25 10:02 Wound Center Nurse 1 right lateral foot -Combined with other wound No -Current Size (cm) - Length 0.2 -Current Size (cm) - Width 0.2 -Current Size (cm) - Depth 0.1 -Total Square Cm 0.04 -Photo Taken Yes -Tunneling No -Undermining/Tunneling No -Circular Undermining No -Exudate Amt Small -Exudate Type Serosanguineous -Wound Margin Distinct, Outline Attached -Granulation Amt Small (1-33%) -Granulation Quality [place] -Slough/Fibrin Yes -Necrosis Amt Large (67-100%) -Necrotic Tissue Type Adherent Slough -Structure Exposed N/A -Texture (Luz Maria-wound Skin Appearance) Assessed -Moisture (Luz Maria-wound Skin Appearance) Assessed -Color (Luz Maria-wound Skin Appearance) Assessed, Erythema -Temperature (Luz Maria-wound Skin No Abnormality Appearance) (Pt Warm) -Tenderness on Palpation (Luz Maria-wound No Skin Appearance) -Ulcer Cleansing Not Cleansed -Foul Odor after Cleansing No -Anesthetic Used 5% Lidocaine Gel Lower Limb Edema Present Yes Right Calf (cm) 29 Right Ankle (cm) 19.2 WC - Nurse 2 - General Ulcer CM Notes Start: 02/13/25 10:01 Freq: Status: Active Protocol: Activity Type Activity Date Activity User E-sign Co-sign Detail Recorded Client Recorded Date Recorded By Document 02/13/25 10:11 DS [id number] 02/13/25 10:14 DS 02/13/25 10:11 Wound Center Nurse 2 right lateral foot -Time 10:11 -Correct Patient Yes -Correct Side, Site, Position Yes -Correct Procedure Yes -Procedure Performed Yes -Type of Procedure Debridement -Clinical Debridement Subcutaneous -Tissue Removed Subcutaneous -Post Debridement (cm) - Length 0.2 -Post Debridement (cm) - Width 0.3 -Post Debridement (cm) - Depth 0.1 -Total Square (Post) (cm) 0.06 -Area of Debridement (cm) - Length 0.2 -Area of Debridement (cm) - Width 0.3 -Total Square (Area) (cm) 0.06 -Tunneling No -Undermining/Tunneling No -Circular Undermining No -Wound/Ulcer Outcome Not Healed -Ulcer Cleansing Rinsed/ Irrigated with Saline -Foul Odor after Cleansing No -Bioengineered Tissue No -Bleeding Controlled with Pressure -Treatment Response Procedure Tolerated Well -Debridement - Subq, 1st 20sq cm Yes Pain Scale: 0-10 Numeric Is Patient Pain Free? No R foot -Description Sharp -Intensity 6 -Pain Behavior Irritability, Facial Grimacing -Pain Aggravating Factors Debridement -Alleviating Factors/Interventions Will continue to monitor Assessment/Plan Assessment/Plan (1) COPD exacerbation: CODE(S): J44.1 - Chronic obstructive pulmonary disease with (acute) exacerbation (2) Tobacco abuse disorder: CODE(S): Z72.0 - Tobacco use (3) Neuropathy, lower extremity: CODE(S): G57.90 - Unspecified mononeuropathy of unspecified lower limb QUALIFIERS: Laterality: right Qualified Code(s): G57.91 - Unspecified mononeuropathy of right lower limb (4) Peripheral vascular disease of extremity with claudication: CODE(S): I73.9 - Peripheral vascular disease, unspecified (5) Chronic ulcer of right foot: CODE(S): L97.519 - Non-pressure chronic ulcer of other part of right foot with unspecified severity QUALIFIERS: Non-pressure ulcer stage: with fat layer exposed Qualified Code(s): L97.512 - Non-pressure chronic ulcer of other part of right foot with fat layer exposed PLAN: Wash foot with antibacterial soap and water pat dry and apply Fibrocol to wound base moistened and cover with gauze dressing every day Patient needs to wear a compression stocking to the right leg Consult with podiatry for next week and then I will see her in 2 weeks Follow-up in 2 weeks
--- NOTE | 2025-02-14 09:06 | WC ---
PHOTO-RIGHT LAT FOOT 02/13/25
[2025-02-20 09:34] VITALS: BP 99/65; PULSE 86; RESP 16; TEMP 36.7
--- NOTE | 2025-02-20 13:58 | PCM.WC.HP ---
History of Present Illness Date of Service: 02/20/25 Chief Complaint: Right lateral foot wound for at least 1 month. History of Wound: 79-year-old that has this perfectly round open area on the right lateral foot with swelling and tenderness. X-rays were done were negative patient is not diabetic but is a smoker and probably suffers from peripheral vascular disease and she does have a lot of peripheral neuropathy patient was just started on Augmentin 2 days ago. We will obtain cultures today and follow patient up in 2 weeks and we will apply Aquacel down into the wound as best she can and moisten it and cover with gauze dressing she is also to wear Tubigrip's daily Progress of Wound: Patient is 79-year-old female with a extensive history of smoking is presenting the wound care center today for evaluation of right lateral foot swelling and tenderness. Patient is not diabetic. She was seeing another provider at the wound center and is being referred to my service for consultation evaluation of the patient's right lower extremity. Patient has never had any vascular studies before the area that has been causing her pain does not have a wound but does show area of a callus present. There is erythema and swelling. She is wearing a Tubigrip daily and covering the area with gauze. She denies trauma. She denies any night pain where she has to get up out of bed and walk to decrease the pain to the bilateral lower extremity. Denies constitutional symptoms. No other pedal complaints at this time. [facility] Medical History Neuropathy, lower extremity Tobacco abuse disorder Influenza A Abnormal urinalysis Elevated troponin Influenza A H1N1 infection COPD with acute exacerbation Hypoxia CKD stage 3b, GFR 30-44 ml/min Wears dentures Gastric reflux Shortness of breath on exertion Chronic cough Smoker Leg cramps History of stress test COPD (chronic obstructive pulmonary disease) COPD exacerbation History of left breast cancer Bladder incontinence Vitamin D deficiency IBS (irritable bowel syndrome) Hyperlipidemia GERD (gastroesophageal reflux disease) Depression Arthritis Skin cancer Cervical cancer Tobacco abuse Osteopenia Personal history of malignant neoplasm of breast Osteoarthritis Home Medications ?Medication ?Instructions ?Recorded ?Last Taken ?Type albuterol sulfate 90 mcg/actuation 2 puff inhalation Q4H PRN Sob &/Or 01/29/21 Unknown History aerosol inhaler Wheezing acetaminophen 300 mg-codeine 60 mg 1 tab PO Q6H PRN pain 10/12/22 Unknown History tablet docusate sodium 100 mg capsule 100 mg PO DAILY 10/12/22 06/11/24 History (Stool Softener) amlodipine 10 mg tablet 10 mg PO DAILY blood pressure 06/12/24 06/11/24 History gabapentin 100 mg capsule 100 mg PO BID pain 06/12/24 06/11/24 History hydrocodone-acetaminophen 5-325mg 1 tab PO Q6H PRN Pain 06/12/24 Unknown History 5mg-325mg metoclopramide HCl 5 mg tablet 5 mg PO BID 06/12/24 06/11/24 History cephalexin 500 mg capsule 500 mg PO TID #15 caps 06/14/24 Unknown Rx nicotine 14 mg/24 hr daily 14 mg transdermal DAILY #30 ea 06/14/24 Unknown Rx transdermal patch oseltamivir 30 mg capsule 30 mg PO BID #5 caps 06/14/24 Unknown Rx prednisone 20 mg tablet 40 mg (2 x 20 mg) PO DAILY #14 tabs 06/14/24 Unknown Rx Allergy/AdvReac Type Severity Reaction Status Date / Time ibuprofen AdvReac Nausea/Vom/ Verified 12/15/24 10:51 Diarrhea Family History Father Emphysema Heart disease Mother Seizures Breast cancer Surgical History History of esophagogastroduodenoscopy (EGD) (~02/2021) History of colonoscopy (~02/2021) History of lumpectomy History of knee replacement H/O: hysterectomy S/P cholecystectomy Social History household members: none housing: house Smoking Status: Current every day smoker tobacco type: cigarettes alcohol intake: never substance use type: does not use Vital Signs Vital Signs Vital Signs: 02/20/25 09:34 Temperature 98.1 F Temperature Source Temporal Pulse Rate 86 Respiratory Rate 16 Blood Pressure 99/65 Blood Pressure Mean 76 Blood Pressure Source Monitor Blood Pressure Position Sitting Blood Pressure Location Right Forearm Physical Exam Narrative Vascular: DP is monophasic and PT is biphasic on Doppler. Faintly palpable pulses to the DP and PT arteries to the right lower extremity. CFT is brisk. Blanchable erythema appreciated the center process of the right foot. Skin temperature is warm to warm from proximal ankle to distal digit with no focal increase appreciated. Neurological: Light touch is intact. Patient does respond to painful stimuli. Dermatological: Evidence of hyperkeratotic tissue to the styloid process of the right foot. No open lesions or abrasions. No subcutaneous nodules. No concern sign of infection. Muscle skeletal: Muscle strength is 5 and 5 in all quadrants to right lower extremity. Mild pain to palpation to the styloid process of the base of the fifth metatarsal to the right foot. No pain with calf pressure. Debridement Note Debridement Note Post-Debridement Measurements and Additional Note: Post-Debridement Measurements/Treatment - Nurse 1 - General Ulcer Assessment Start: 02/13/25 10:01 Freq: Status: Active Protocol: DONNIE Activity Type Activity Date Activity User E-sign Co-sign Detail Recorded Client Recorded Date Recorded By Document 02/13/25 10:02 RB [id number] 02/13/25 10:04 RB Document 02/20/25 09:34 JF [id number] 02/20/25 09:42 02/13/25 02/20/25 10:02 09:34 - Today's Visit Information Type of service Follow-up Visit Follow-up Visit (Physician/FIELD CARE MANAGER (Physician/FIELD CARE MANAGER ) ) Arrival Mode Ambulatory Ambulatory, Walker Transfer Assistance None Patient Identification Verified (Name & Yes Yes ) Patient Requires Transmission-Based No No Precautions Vital Signs Temperature (97.8 F-99.1 F) 99.3 F H 98.1 F Temperature Source Temporal Temporal Pulse Rate (60-100) 89 86 Pulse Location Monitor Monitor Respiratory Rate (12-18) 18 16 Respiratory rate source Observation Observation Oxygen Delivery Method Room Air Blood Pressure (90/60-120/80) 135/63 H 99/65 Blood Pressure Mean 87 76 Source Monitor Monitor Position Semi-Fowlers Sitting Blood Pressure Location Left Arm Right Forearm History Since Last Visit- (Skip if this is Patient's initial visit) Have you changed medications since your No Yes last visit? Any new allergies or adverse reactions No No Had a fall/change in ADL's that may No No increase risk of falls Signs or symptoms of abuse and/or No No neglect since last visit Have you been in the hospital since your No No last visit? Has dressing in place as prescribed Yes Yes Has compression in place as prescribed Yes N/A Has offloadiing in place as prescribed N/A N/A Experienced any changes in pain level or No No management Left Footwear Regular Shoe Regular Shoe Right Footwear Regular Shoe Slipper Pain Scale: 0-10 Numeric Is Patient Pain Free? No No R foot -Description Aching Sharp,Dull, Throbbing, Burning, Crushing, Tightness, Cramping, Pressure -Intensity 4 8 -Duration (hours) Acute Acute -Pain Behavior Irritability, Moaning, Withdrawal from Withdrawal from Touch Touch, Screaming -Pain Aggravating Factors Exercise/ ADL's,Exercise/ Activity Activity -Alleviating Factors/Interventions Medication Medication, Turning/ Repositioning -Effectiveness of Alleviating Factor/ Moderately Minimally Intervention effective effective -Comments ibuprofen with codeine WC - Nurse 1 - General Ulcer Measurement Start: 02/13/25 10:01 Freq: Status: Active Protocol: Activity Type Activity Date Activity User E-sign Co-sign Detail Recorded Client Recorded Date Recorded By Document 02/13/25 10:02 RB [id number] 02/13/25 10:04 RB Document 02/20/25 09:34 [id number] 02/20/25 09:42 02/13/25 02/20/25 10:02 09:34 Wound Center Nurse 1 right lateral foot -Combined with other wound No No -Current Size (cm) - Length 0.2 0.1 -Current Size (cm) - Width 0.2 0.1 -Current Size (cm) - Depth 0.1 0.1 -Total Square Cm 0.04 0.01 -Photo Taken Yes Yes -Epithelialization None Present -Tunneling No No -Undermining/Tunneling No No -Circular Undermining No No -Exudate Amt Small None Present -Exudate Type Serosanguineous -Wound Margin Distinct, Flat & Intact Outline Attached -Granulation Amt Small (1-33%) None Present (0 %) -Granulation Quality [place] -Slough/Fibrin Yes Yes -Necrosis Amt Large (67-100%) Large (67-100%) -Necrotic Tissue Type Adherent Slough Adherent Slough -Structure Exposed N/A N/A -Texture (Luz Maria-wound Skin Appearance) Assessed Assessed -Moisture (Luz Maria-wound Skin Appearance) Assessed Assessed,Dry/ Scaly -Color (Luz Maria-wound Skin Appearance) Assessed, Assessed Erythema -Temperature (Luz Maria-wound Skin No Abnormality No Abnormality Appearance) (Pt Warm) (Pt Warm) -Tenderness on Palpation (Luz Maria-wound No No Skin Appearance) -Ulcer Cleansing Not Cleansed Rinsed/ Irrigated with Saline -Foul Odor after Cleansing No No -Anesthetic Used 5% Lidocaine 5% Lidocaine Gel Gel Lower Limb Edema Present Yes Yes Right Calf (cm) 29 28.6 Right Ankle (cm) 19.2 19.3 WC - Nurse 2 - General Ulcer CM Notes Start: 02/13/25 10:01 Freq: Status: Active Protocol: Activity Type Activity Date Activity User E-sign Co-sign Detail Recorded Client Recorded Date Recorded By Document 02/13/25 10:11 DS [id number] 02/13/25 10:14 DS Document 02/20/25 09:50 JF [id number] 02/20/25 09:53 JF 02/13/25 02/20/25 10:11 09:50 Wound Center Nurse 2 right lateral foot -Time 10:11 -Correct Patient Yes Yes -Correct Side, Site, Position Yes No -Correct Procedure Yes No -Procedure Performed Yes No -Type of Procedure Debridement -Clinical Debridement Subcutaneous -Tissue Removed Subcutaneous -Post Debridement (cm) - Length 0.2 0.1 -Post Debridement (cm) - Width 0.3 0.1 -Post Debridement (cm) - Depth 0.1 0.1 -Total Square (Post) (cm) 0.06 0.01 -Area of Debridement (cm) - Length 0.2 0.1 -Area of Debridement (cm) - Width 0.3 0.1 -Total Square (Area) (cm) 0.06 0.01 -Tunneling No No -Undermining/Tunneling No No -Circular Undermining No No -Wound/Ulcer Outcome Not Healed Not Healed -Ulcer Cleansing Rinsed/ Rinsed/ Irrigated with Irrigated with Saline Saline -Foul Odor after Cleansing No No -Bioengineered Tissue No No -Bleeding Controlled with Pressure Pressure -Treatment Response Procedure Procedure Tolerated Well Tolerated Well -Offloading No -Debridement - Subq, 1st 20sq cm Yes No Pain Scale: 0-10 Numeric Is Patient Pain Free? No Yes R foot -Description Sharp -Intensity 6 -Pain Behavior Irritability, Facial Grimacing -Pain Aggravating Factors Debridement -Alleviating Factors/Interventions Will continue to monitor WC - Nurse 3 - General Ulcer D/C NN Start: 02/13/25 10:01 Freq: Status: Active Protocol: Activity Type Activity Date Activity User E-sign Co-sign Detail Recorded Client Recorded Date Recorded By Document 02/13/25 10:32 RB [id number] 02/13/25 10:33 RB Document 02/20/25 13:11 [id number] 02/20/25 13:11 02/13/25 02/20/25 10:32 13:11 Wound Care Center Nurse 3 right lateral foot -Ulcer Cleansing Rinsed/ Not Cleansed Irrigated with Saline -Foul Odor after Cleansing No -Primary Dressing Applied Fibracol Plus Other 4x4 -Other Dressing betadine and bandaid -Primary Dressing Covered/Secured with Dry Gauze & Roll Gauze, Secured with Tape -Fibracol Plus 4x4 1 RLE -Lotion applied to leg before No compression wrap -Tubular Bandage Single Layer Single Layer -Size of Tubigrip Used Size D Size E -Size D ($) 1 -Size E ($) 1 Treatment Response Procedure Tolerated Well Pain Scale: 0-10 Numeric Is Patient Pain Free? Yes Yes WC - Visit Discharge Discharge Condition Stable Stable Ambulatory Status Ambulatory Ambulatory Transportation Private Auto Private Auto Medication Reconcilliation completed & No provided to patient/care provider Clinical Summary of Care Provided Yes Assessment/Plan Assessment/Plan (1) Pain in right foot: CODE(S): M79.671 - Pain in right foot PLAN: Patient was examined and evaluated. All findings were discussed with the patient. All questions were answered to the patient's satisfaction. After examination of the patient shows evidence of some peripheral arterial disease. Will move forward with authorizing pulse volume recordings to get a baseline since the patient has never had the studies done before. Given the Doppler findings I am concerned for some arterial disease that may require some vascular intervention but we will hold off until baseline studies are obtained. Review of the patient's right foot x-ray showed no concern for fracture or infection. Evidence of osteoarthritis was appreciated. The area will be dressed with gauze and a larger size Tubigrip size EE will be donned. Patient will wear daily. Educated the patient about her current findings and how this could all be relative to her past smoking which she is also understanding of. Follow-up at the wound care center with Dr. Cavanaugh in 2 week. (2) Other specified peripheral vascular diseases: CODE(S): I73.89 - Other specified peripheral vascular diseases
--- NOTE | 2025-02-21 09:18 | WC ---
PHOTO-RIGHT LATERAL FOOT 02/20/25
== END 2025-03-03 23:59 | disposition home or self-care (01) ==
LOC: WC 09:45
PROVIDERS: PCP Family Medicine; Referring Provider Family Medicine; Visit Provider Nurse Practitioner
DX: L97.512 Non-pressure chronic ulcer of other part of right foot with fat layer exposed (principal); J44.1 Chronic obstructive pulmonary disease with (acute) exacerbation; M79.671 Pain in right foot; Z90.710 Acquired absence of both cervix and uterus; E78.5 Hyperlipidemia, unspecified; F17.210 Nicotine dependence, cigarettes, uncomplicated; G57.91 Unspecified mononeuropathy of right lower limb; Z90.49 Acquired absence of other specified parts of digestive tract; Z85.3 Personal history of malignant neoplasm of breast; I73.89 Other specified peripheral vascular diseases
CPT/HCPCS: 11042; 99213; G0463

== ENCOUNTER 2025-02-27 13:31 | Outpatient (CLI) | payer MEDICARE, MEDICAID, SELFPAY ==
--- NOTE | 2025-02-27 13:36 | ART_ITS ---
Reason For Study Reason For Study: Right Foot Ulcer Procedure A bilateral lower extremity continuous wave Doppler with analog waveform analysis,segmental pressures,and ankle brachial indexes without exercise. Left Segmental Pressures Left brachial= 119mmHg. Left posterior tibial artery = 118mmHg. Left dorsalis pedis artery = 137mmHg. Left digit = 111 mmHg. The left dorsalis pedis waveforms are triphasic. The left posterior tibial artery waveforms are triphasic. Right Segmental Pressures Right brachial= 130mmHg. Right posterior tibial artery = 130mmHg. Right dorsalis pedis artery = 117mmHg. Right digit = 94 mmHg. The right dorsalis pedis waveforms are biphasic. The right posterior tibial artery waveforms are biphasic. Indices The right ankle brachial index by the dorsalis pedis is 0.90. The right ankle brachial index by the posterior tibial artery is 1.00. The right digital-brachial index is 0.72. The left ankle brachial index by the dorsalis pedis is 1.05. The left ankle brachial index by the posterior tibial artery is 0.91. The left digital-brachial index is 0.85. VL/Lower Ext Art Exam w/o Exercis Interpretation Summary Biphasic Doppler waveforms are noted at ankle level on the right. Triphasic Dop pler waveforms are noted at ankle level on the left. Pulse-volume recordings appear satisfactory at all levels bilatera lly. Resting ankle-brachial indices are normal bilaterally. Digital-brachial indices are normal bilaterally. There is no evidence of significant arterial occlusive disease in the lower ext remities bilaterally. Ordering Physician: Gabriel Cavanaugh Referring Physician: Augusta Hicks Performed By: MARCIANO SOLORIO RVT
== END 2025-02-27 23:59 | disposition home or self-care (01) ==
PROVIDERS: PCP Family Medicine; Referring Provider Podiatrist Foot & Ankle Surgery; Visit Provider Podiatrist Foot & Ankle Surgery
DX: L97.519 Non-pressure chronic ulcer of other part of right foot with unspecified severity (principal); L97.529 Non-pressure chronic ulcer of other part of left foot with unspecified severity; R52 Pain, unspecified; R60.0 Localized edema; I73.89 Other specified peripheral vascular diseases
CPT/HCPCS: 93923